=== PATIENT | male | born 1955 | race Caucasian/White ===

== ENCOUNTER 2019-01-06 09:48 | Inpatient (IN) | payer MEDICARE, OTHER ==
[2019-01-06] MEDS ORDERED: ALPRAZolam 0.25 MG TAB PO PRN (11:43)
[2019-01-06] MEDS ORDERED: NITROGLYCERIN SL TABS 0.4 MG TAB SUBLINGUAL PRN ×2 (11:43→18:50)
[2019-01-06] MEDS ORDERED: SODIUM CHLORIDE 0.9% 1,000 ML in EMPTY BAG 1 BAG IV ONE (11:43)
[2019-01-06] MEDS ORDERED: ASPIRIN 325 MG TAB PO STA (11:46)
[2019-01-06] MEDS ORDERED: LIDOCAINE 1% INJ 10MG/ML (20 ML MDV) ONE (16:48)
[2019-01-06] MEDS ORDERED: MIDAZOLAM 2 MG/2 ML VIAL IVP ONE (18:08)
[2019-01-06] MEDS ORDERED: BIVALIRUDIN BOLUS 250 MG/50 ML IV ONE (18:10)
[2019-01-06] MEDS ORDERED: IV FLUID CONTINUATION 1,000 ML IV ONE (18:11)
[2019-01-06] MEDS ORDERED: BIVALIRUDIN 250 MG in SODIUM CHLORIDE 0.9% 50 ML IV ONE (18:11)
[2019-01-06] MEDS ORDERED: NITROGLYCERIN 1000MCG/10ML SYRINGE INTRACORON ONE (18:29)
[2019-01-06] MEDS ORDERED: CLOPIDOGREL 75 MG TAB ONE (18:36)
[2019-01-06] MEDS ORDERED: CLOPIDOGREL 75 MG TAB PO ONE (18:38)
[2019-01-06] MEDS ORDERED: IOPAMIDOL-370 125ML BTL INJ ONE (18:43)
[2019-01-06] MEDS ORDERED: ATROPINE SULFATE 0.1 MG/ML 10ML SYRINGE IV PRN (18:50)
[2019-01-06] MEDS ORDERED: RX INFO: IV CONTRAST WAS GIVEN 1 EACH MISC MISCELLANE PRN (18:50)
[2019-01-06] MEDS ORDERED: ZOLPIDEM 5 MG TAB PO PRN (18:50)
[2019-01-06] MEDS ORDERED: BISACODYL 10 MG SUPP RECTAL PRN (18:50)
[2019-01-06] MEDS ORDERED: MAG HYDROX/AL HYDROX/SIMETH 30 ML CUP PO PRN (18:50)
[2019-01-06] MEDS ORDERED: SODIUM CHLORIDE 0.9% 1,000 ML IV SCH (19:00)
[2019-01-06] MEDS ORDERED: HYDROcodone/APAP 5-325MG 1 EACH TAB PO PRN (20:58)
--- NOTE | 2019-01-06 23:08 | PTCA ---
PERCUTANEOUSTRANS CORORONARY ANGIOGRAPHY DATE OF SERVICE: January 06, 2019 PERFORMING PHYSICIAN: Herb Tomlinson MD, endoscopy registered nurse. PROCEDURE PERFORMED: 1. Successful stenting of the distal and mid left circumflex using 2.75 x 18 mm Xience drug-eluting stent with an excellent angiographic results. 2. Successful stenting of the mid left circumflex using 3.25 x 28 mm Xience drug- eluting stent with an excellent angiographic results. INDICATIONS: This is a 63-year-old gentleman with hypertension, dyslipidemia, and history of stroke, who was experiencing shortness of breath with minimal exertion. He underwent myocardial perfusion imaging stress test and that showed inferolateral ischemia. A heart catheterization was advised. He underwent heart catheterization and that showed critical disease involving the left circumflex and critical disease involving the RCA as well. APPROACH: Left common femoral artery. COMPLICATION: None. LEVEL OF SEDATION: Moderate with sedation length of 33 minutes. PROCEDURE DESCRIPTION: diagnostic heart catheterization was performed at [facility]. Anticoagulation was initiated using Angiomax. Subsequently I took an XB guide and the left main was engaged. I crossed the lesion in the left circumflex using a run-through wire. After that, I attempted doing balloon angioplasty using 2.0 mm balloon but the balloon will not cross the lesion, so I did balloon angioplasty using 1.5 mm balloon. After that, I ballooned using 2.5 x 15 mm balloon. After that, I deployed distally 275 x 18 mm Xience drug-eluting stent and in the mid 325 x 28 mm Xience drug-eluting stent as well. The area of overlap between the 2 stents was dilated using the stent balloon. Following the final angiogram showed good angiographic results and the procedure was completed without any complication. POSTPROCEDURE MANAGEMENT: 1. Dual anti-platelet therapy. 2. Risk factors modifications. 3. PCI of the RCA down the line. MMODL / IJN: [id number] /
--- NOTE | 2019-01-06 23:08 | LTR ---
DATE OF SERVICE: January 06, [address] Varma: MrSoheila Morel underwent successful balloon angioplasty and stenting of the left circumflex. I want to thank you for allowing us to participate in his care and please do not hesitate to call if you have any question or concerns. MMLYUDMILA / IJAlba: [id number] /
[2019-01-06] MEDS: CARVEDILOL 3.125 MG TAB PO SCH (23:27)
[2019-01-06 23:41] VITALS: RESP 18
[2019-01-07 03:42] VITALS: TEMP 97.3
[2019-01-07 06:50] LABS: Basophils # (A) 0.1 k/uL (0-0.2); Basophils % (A) 0 %; Eosinophils # (A) 0.1 k/uL (0-0.7); Eosinophils % (A) 1 %; HCT 39.5 % (39.0-53.0); HGB 12.5 gm/dL (13.0-17.5); Lymphocytes # (A) 1.1 k/uL (1.0-4.8); Lymphocytes % (A) 9 %; MCH 27.7 pg (25.0-35.0); MCHC 31.6 g/dL (31.0-37.0); MCV 87.5 fL (80.0-100.0); Mean Platelet Volume 7.3; Monocytes # (A) 0.7 k/uL (0-1.0); Monocytes % (A) 6 %; Neutrophils # (A) 10.5 k/uL (1.3-7.7); Neutrophils % (A) 83 %; Platelet Count 197 k/uL (150-450); RBC 4.51 m/uL (4.30-5.90); RDW 15.8 % (11.5-15.5); WBC 12.6 k/uL (3.8-10.6)
[2019-01-07 06:59] LABS: Anion Gap 8 mmol/L; Blood Urea Nitrogen 18 mg/dL (9-20); Carbon Dioxide 26 mmol/L (22-30); Chloride 105 mmol/L (98-107); Glucose 111 mg/dL (74-99); Potassium 4.1 mmol/L (3.5-5.1); Sodium 139 mmol/L (137-145)
[2019-01-07] MEDS: CARVEDILOL 3.125 MG TAB PO SCH (08:29)
[2019-01-07] MEDS ORDERED: CLOPIDOGREL 75 MG TAB PO SCH (09:00)
[2019-01-07] MEDS ORDERED: LISINOPRIL 20 MG TAB PO SCH (09:00)
[2019-01-07] MEDS ORDERED: POTASSIUM CHLORIDE ER 20 MEQ TAB.ER PO SCH (09:00)
[2019-01-07] MEDS ORDERED: ATORVASTATIN 40 MG TAB PO SCH (09:00)
[2019-01-07] MEDS ORDERED: levETIRAcetam 500 MG TAB PO SCH (09:00)
[2019-01-07] MEDS ORDERED: ASPIRIN 325 MG TAB PO SCH (09:00)
[2019-01-07 09:28] VITALS: BP 158/69; PULSE 60
[2019-01-07 10:29] VITALS: BMI 30.3
[2019-01-07] MEDS ORDERED: CHOLECALCIFEROL 1,000 UNIT TAB PO SCH (12:00)
--- NOTE | 2019-01-08 07:57 | DS ---
DISCHARGE SUMMARY ADMISSION DATE: January 06, 2019 DISCHARGE DATE: January 07, 2019 BRIEF HISTORY: This is a 63-year-old gentleman who was experiencing shortness of breath with exertion and underwent a heart catheterization at [facility], which revealed critical disease involving the left circumflex and severe disease involving the right coronary artery. He was transferred to the [facility] where he underwent successful balloon angioplasty and stenting of the left circumflex with good angiographic results and without any complication. The patient was discharged home on dual anti-platelet therapy as well as a statin and he is going to follow up in the office with me in a week. MMODL / IJN: [id number] /
== END 2019-01-07 12:54 | DRG 247 ==
LOC: 3SCARD 15:51
PROVIDERS: ADMIT Internal Medicine Interventional Cardiology; ATTEND Internal Medicine Interventional Cardiology
PROC: 027035Z Dilation of Coronary Artery, One Artery with Two Drug-eluting Intraluminal Devices, Percutaneous Approach (ICD-10-PCS; principal; 2019-01-06 17:22)
DX: I25.10 Atherosclerotic heart disease of native coronary artery without angina pectoris (principal); I69.351 Hemiplegia and hemiparesis following cerebral infarction affecting right dominant side; I47.1 Supraventricular tachycardia; F17.210 Nicotine dependence, cigarettes, uncomplicated; I69.320 Aphasia following cerebral infarction; I10 Essential (primary) hypertension; I45.10 Unspecified right bundle-branch block; E78.5 Hyperlipidemia, unspecified; Z79.82 Long term (current) use of aspirin; Z79.899 Other long term (current) drug therapy; I08.0 Rheumatic disorders of both mitral and aortic valves
CPT/HCPCS: 80048; 85025; C1874

== ENCOUNTER 2019-02-19 07:40 | Day surgery (SDC) | payer MEDICARE, OTHER ==
[2019-02-18 09:50] VITALS: BMI 29.0
[~2019-02-19 07:40] MED LIST: ALPRAZolam 0.25 MG TAB PO PRN; ALPRAZolam 0.5 MG TAB PO PRN; ASPIRIN 325 MG TAB PO STA; NITROGLYCERIN SL TABS 0.4 MG TAB SUBLINGUAL PRN; SODIUM CHLORIDE 0.9% 1,000 ML in EMPTY BAG 1 BAG IV ONE
[2019-02-19 08:19] LABS: Basophils # (A) 0.1 k/uL (0-0.2); Basophils % (A) 1 %; Eosinophils # (A) 0.4 k/uL (0-0.7); Eosinophils % (A) 4 %; HCT 38.2 % (39.0-53.0); HGB 12.6 gm/dL (13.0-17.5); Lymphocytes % (A) 21 %; MCH 29.2 pg (25.0-35.0); MCHC 32.9 g/dL (31.0-37.0); MCV 88.6 fL (80.0-100.0); Mean Platelet Volume 7.3; Monocytes # (A) 0.6 k/uL (0-1.0); Monocytes % (A) 6 %; Neutrophils # (A) 6.3 k/uL (1.3-7.7); Neutrophils % (A) 66 %; Platelet Count 252 k/uL (150-450); RBC 4.31 m/uL (4.30-5.90); RDW 15.7 % (11.5-15.5); WBC 9.6 k/uL (3.8-10.6)
[2019-02-19 08:27] LABS: Blood Urea Nitrogen 19 mg/dL (9-20); Carbon Dioxide 28 mmol/L (22-30)
[2019-02-19 08:47] LABS: Anion Gap 10 mmol/L; Calcium 9.6 mg/dL (8.4-10.2); Chloride 106 mmol/L (98-107); Glucose 96 mg/dL (74-99); Potassium 4.3 mmol/L (3.5-5.1); Sodium 142 mmol/L (137-145)
[2019-02-19] MEDS ORDERED: LIDOCAINE 1% INJ 10MG/ML (20 ML MDV) ONE (08:56)
[2019-02-19] MEDS ORDERED: MIDAZOLAM (PF) 2 MG/2 ML VIAL IV ONE (08:59)
[2019-02-19] MEDS ORDERED: LIDOCAINE 1% INJ 10MG/ML (20 ML MDV) SQ ONE (08:59)
[2019-02-19] MEDS ORDERED: CLOPIDOGREL 75 MG TAB ONE (09:02)
[2019-02-19] MEDS ORDERED: CLOPIDOGREL 75 MG TAB PO ONE (09:03)
[2019-02-19] MEDS ORDERED: BIVALIRUDIN 250 MG in SODIUM CHLORIDE 0.9% 36 ML IV ONE (09:04)
[2019-02-19] MEDS ORDERED: BIVALIRUDIN BOLUS 250 MG/50 ML IV ONE (09:04)
[2019-02-19] MEDS ORDERED: hydrALAZINE HCL 20 MG/ML 1 ML VIAL ONE (09:13)
[2019-02-19] MEDS ORDERED: hydrALAZINE HCL 20 MG/ML 1 ML VIAL IV ONE (09:14)
[2019-02-19] MEDS ORDERED: IOPAMIDOL-370 125ML BTL INJ ONE (09:25)
[2019-02-19] MEDS ORDERED: ACETAMINOPHEN TAB 325 MG TAB PO PRN (09:40)
[2019-02-19] MEDS ORDERED: BISACODYL 10 MG SUPP RECTAL PRN (09:40)
[2019-02-19] MEDS ORDERED: ATROPINE SULFATE 0.1 MG/ML 10ML SYRINGE IV PRN (09:41)
[2019-02-19] MEDS ORDERED: MAG HYDROX/AL HYDROX/SIMETH 30 ML CUP PO PRN (09:41)
[2019-02-19] MEDS ORDERED: ZOLPIDEM 5 MG TAB PO PRN (09:41)
[2019-02-19] MEDS ORDERED: RX INFO: IV CONTRAST WAS GIVEN 1 EACH MISC MISCELLANE PRN (09:41)
[2019-02-19] MEDS ORDERED: NITROGLYCERIN SL TABS 0.4 MG TAB SUBLINGUAL PRN (09:41)
[2019-02-19] MEDS ORDERED: SODIUM CHLORIDE 0.9% 1,000 ML IV SCH (09:45)
--- NOTE | 2019-02-19 10:09 | LTR ---
DATE OF SERVICE: February 19, 2019 RE: Surinder Morel Dear Dr. Varma: Mr. Surinder Morel underwent successful stenting of the right coronary artery with good angiographic results and without any complication. I want to thank you for allowing us to participate in his care and please do not hesitate to call if you have any question or concern. Sincerely, Herb Tomlinson MD MMMIGUELL / CHANCEN: [id number] /
--- NOTE | 2019-02-19 10:15 | CC ---
CARDIAC CATHETERIZATION REPORT CARDIAC CATHETERIZATION AND PERCUTANEOUS CORONARY INTERVENTION: DATE OF SERVICE: February 19, 2019 PERFORMING PHYSICIAN: Herb Tomlinson M.D., swatch maker. PROCEDURE PERFORMED: 1. Selective right and left coronary angiogram. 2. Left heart catheterization. 3. Successful stenting of the mid right coronary artery using 3.25 x 38 mm Xience drug- eluting stent with good angiographic results. 4. Successful stenting of the proximal right coronary artery using 3.25 x 18 mm Xience drug-eluting stent with excellent angiographic results. INDICATION: This is a pleasant 64-year-old gentleman with history of coronary artery disease and prior coronary artery stenting of the left circumflex, who was brought today to undergo a PCI of the right coronary artery. He is known to have severe disease involving the right coronary artery. APPROACH: Left common femoral artery. COMPLICATION: None. LEVEL OF SEDATION: Moderate with sedation length of 28 minutes. PROCEDURE DESCRIPTION: After obtaining an informed consent, the patient was brought to the cardiac medical lab technician. The left common femoral artery was cannulated using micropuncture technique, the micropuncture wire passed easily then I placed a 6-Georgian sheath in the left common femoral artery. After that, I did intervene on the right coronary artery. Please see a separate paragraph for that. Subsequently I did selective left coronary angiogram to check the stent in the left circumflex. During the procedure, the JR4 guide went into the LV then I pulled back across the aortic valve. The procedure was completed without any complication. SELECTIVE CORONARY ANGIOGRAM: 1. The right coronary artery has a long tubular lesion extends from the proximal to the mid to distal portion. The tubular lesion up to about 80%. The RCA distally appeared to be normal and bifurcates into PDA and PLV branches, both appear to have mild disease only. 2. The left main is angiographically normal. It bifurcates into left circumflex and left anterior descending artery. 3. The left circumflex is a large caliber vessel and it is a nondominant vessel. The proximal circumflex is . The mid circumflex is stented and the stent is patent and the circumflex distally appeared to have mild disease only. The circumflex gives rise into 2 obtuse marginal branches. They appeared to have mild disease only. 4. The LAD: The proximal LAD appeared to be angiographically normal. The mid LAD has a complex lesion involving the first diagonal branch and the lesion appeared to be in the range of 50% to 60%. The LAD distally appeared to be normal. HEMODYNAMICS: The left ventricular end-diastolic pressure was about 12 mmHg without significant gradient across the aortic valve. PCI OF THE RIGHT CORONARY ARTERY: Anticoagulation was initiated using Angiomax. Subsequently I did engage the right coronary artery using JR4 guide. A run-through wire was used to wire the right coronary artery and the wire was positioned in the PDA branch of RCA. Subsequently I did balloon angioplasty using 3.0 x 30 mm balloon before I deployed in the mid RCA 3.25 x 38 mm Xience drug-eluting stent where the stent was positioned under fluoroscopy guidance and deployed under 18 atmospheres for 20 seconds. Proximally, I deployed 3.25 x 18 mm another Xience drug-eluting stent where the stent again was positioned under fluoroscopy guidance and deployed under 18 atmospheres for 20 seconds. Final angiogram showed good results and the procedure was completed without any complication. POSTPROCEDURE MANAGEMENT: 1. Dual antiplatelet therapy. 2. Risk factors modifications. 3. Follow up with the patient. SUSANA / CHANCEN: [id number] /
[2019-02-19] MEDS: CARVEDILOL 3.125 MG TAB PO SCH (17:28)
[2019-02-19] MEDS ORDERED: MAGNESIUM OXIDE 400 MG TAB PO SCH (21:00)
[2019-02-19 23:59] VITALS: RESP 18
[2019-02-20] MEDS: CARVEDILOL 3.125 MG TAB PO SCH (06:08)
[2019-02-20 06:50] LABS: Basophils # (A) 0.1 k/uL (0-0.2); Basophils % (A) 1 %; Eosinophils # (A) 0.2 k/uL (0-0.7); Eosinophils % (A) 2 %; HCT 36.7 % (39.0-53.0); HGB 11.9 gm/dL (13.0-17.5); Lymphocytes # (A) 1.8 k/uL (1.0-4.8); Lymphocytes % (A) 18 %; MCH 28.6 pg (25.0-35.0); MCHC 32.4 g/dL (31.0-37.0); MCV 88.2 fL (80.0-100.0); Mean Platelet Volume 7.3; Monocytes # (A) 0.7 k/uL (0-1.0); Monocytes % (A) 7 %; Neutrophils # (A) 7.2 k/uL (1.3-7.7); Neutrophils % (A) 71 %; Platelet Count 218 k/uL (150-450); RBC 4.16 m/uL (4.30-5.90); RDW 15.9 % (11.5-15.5); WBC 10.2 k/uL (3.8-10.6)
[2019-02-20 06:58] LABS: Anion Gap 9 mmol/L; Blood Urea Nitrogen 17 mg/dL (9-20); Calcium 9.4 mg/dL (8.4-10.2); Carbon Dioxide 24 mmol/L (22-30); Chloride 106 mmol/L (98-107); Glucose 93 mg/dL (74-99); Potassium 4.1 mmol/L (3.5-5.1); Sodium 139 mmol/L (137-145)
[2019-02-20 07:53] VITALS: BP 175/88; PULSE 59; TEMP 98.6
[2019-02-20] MEDS ORDERED: CLOPIDOGREL 75 MG TAB PO SCH (09:00)
[2019-02-20] MEDS ORDERED: POTASSIUM CHLORIDE ER 20 MEQ TAB.ER PO SCH (09:00)
[2019-02-20] MEDS ORDERED: ASPIRIN 81 MG PO SCH (09:00)
[2019-02-20] MEDS ORDERED: CHOLECALCIFEROL 1,000 UNIT TAB PO SCH (09:00)
[2019-02-20] MEDS ORDERED: ATORVASTATIN 80 MG TAB PO SCH (09:00)
[2019-02-20] MEDS ORDERED: ASCORBIC ACID 500 MG TAB PO SCH (09:00)
[2019-02-20] MEDS ORDERED: LISINOPRIL 20 MG TAB PO SCH (09:00)
[2019-02-20] MEDS ORDERED: levETIRAcetam 500 MG TAB PO SCH (09:00)
--- NOTE | 2019-02-20 10:47 | P.DS ---
Providers Attending physician: Herb Tomlinson Consults: 02/19/19 09:41 Consult Physician Routine Consulting Provider: [facility] Consult Reason/Comments: Post Interventional patient Do you want consulting provider notified?: Already Contacted Primary care physician: Devora Varma [facility] Course: This is a pleasant 64-year-old gentleman with history of coronary artery disease and prior stenting of the left circumflex was admitted to the hospital yesterday and underwent successful stenting of the right coronary artery with a good angiographic results and without any complication. On follow-up with him today, he is asymptomatic. The left groin is soft and nontender and without any bruises. From a cardiac vascular standpoint of view, the patient can be discharged home. Plan - Discharge Summary Discharge Rx Participant: No New Discharge Prescriptions: Continue Potassium Chloride ER [K-Dur 20] 20 meq PO DAILY levETIRAcetam [Keppra] 1,000 mg PO DAILY Lisinopril 40 mg PO DAILY Clopidogrel [Plavix] 75 mg PO DAILY Cholecalciferol [Vitamin D3 (25 Mcg = 1000 Iu)] 2,000 unit PO DAILY Bisacodyl 10 mg RECTAL DIRECTED PRN PRN Reason: Constipation Carvedilol [Coreg] 3.125 mg PO BID Acetaminophen Tab [Tylenol] 650 mg PO Q4H PRN PRN Reason: Pain Ascorbic Acid [Vitamin C] 500 mg PO DAILY Aspirin [Children's Aspirin] 81 mg PO DAILY Atorvastatin Calcium [Lipitor] 80 mg PO DAILY #90 tablet Magnesium Oxide [Mag-Ox] 400 mg PO 2100 Discharge Medication List Acetaminophen Tab [Tylenol] 650 mg PO Q4H PRN 01/06/19 [History] Ascorbic Acid [Vitamin C] 500 mg PO DAILY 01/06/19 [History] Aspirin [Children's Aspirin] 81 mg PO DAILY 01/06/19 [History] Bisacodyl 10 mg RECTAL DIRECTED PRN 01/06/19 [History] Carvedilol [Coreg] 3.125 mg PO BID 01/06/19 [History] Cholecalciferol [Vitamin D3 (25 Mcg = 1000 Iu)] 2,000 unit PO DAILY 01/06/19 [History] Clopidogrel [Plavix] 75 mg PO DAILY 01/06/19 [History] Lisinopril 40 mg PO DAILY 01/06/19 [History] Potassium Chloride ER [K-Dur 20] 20 meq PO DAILY 01/06/19 [History] levETIRAcetam [Keppra] 1,000 mg PO DAILY 01/06/19 [History] Atorvastatin Calcium [Lipitor] 80 mg PO DAILY #90 tablet 01/07/19 [Rx] Magnesium Oxide [Mag-Ox] 400 mg PO 2100 02/18/19 [History] Follow up Appointment(s)/Referral(s): Herb Tomlinson MD [STAFF PHYSICIAN] - 02/27/19 4:30 pm (Saturday) Patient Instructions/Handouts: *[facility] - After Heart Catheterization - Hydraulic Specialist Instructions, Left Heart Catheterization (DC)
== END 2019-02-20 14:52 ==
LOC: CATHCVL 07:40 → 3SCARD 09:26 → CATHCVL 02-20 14:52
PROVIDERS: ATTEND Internal Medicine Interventional Cardiology
DX: I25.110 Atherosclerotic heart disease of native coronary artery with unstable angina pectoris (principal); I10 Essential (primary) hypertension; E78.00 Pure hypercholesterolemia, unspecified; E78.5 Hyperlipidemia, unspecified; I47.2 Ventricular tachycardia; I45.10 Unspecified right bundle-branch block; I69.359 Hemiplegia and hemiparesis following cerebral infarction affecting unspecified side; Z95.5 Presence of coronary angioplasty implant and graft; Z79.02 Long term (current) use of antithrombotics/antiplatelets; Z79.899 Other long term (current) drug therapy; Z72.0 Tobacco use
CPT/HCPCS: 80048 ×2; 85025 ×2; C9600; C1887; C1725; C1769 ×3; C1894; C1874; J0360; J2001; J0583; Q9967; J2250

== ENCOUNTER 2019-04-26 13:49 | Inpatient (IN) | payer MEDICARE, OTHER ==
--- NOTE | 2019-04-26 14:05 | ED ---
General Adult HPI - General Chief complaint: GI Bleed Stated complaint: Rectal Bleed Time Seen by Provider: 04/26/19 13:50 Source: patient, EMS, RN notes reviewed Mode of arrival: EMS Limitations: no limitations - History of Present Illness Initial comments: This a 64-year-old male with a past medical history of stroke with right-sided paralysis. Patient states it happened about 20 years ago. Patient currently takes Plavix for this. Patient has been having rectal bleeding on and off for over a year he states he thinks it's from his hemorrhoids. Over the last few days is gotten quite heavy to the point where he is filling up a few towels and with every bowel movement is having a fair amount of bright red blood. Patient denies any rectal pain patient denies any abdominal pain. Patient denies any nausea vomiting. Patient denies any shortness of breath or difficulty breathing. Patient denies any chest pain or palpitations. Patient denies being lightheaded or having any dizzy spells. Patient denies any peripheral - Related Data Home Medications Medication Instructions Recorded Confirmed Acetaminophen Tab [Tylenol] 650 mg PO Q4H PRN 01/06/19 04/26/19 Ascorbic Acid [Vitamin C] 500 mg PO HS@2100 01/06/19 04/26/19 Aspirin [Children's Aspirin] 81 mg PO HS@2100 01/06/19 04/26/19 Bisacodyl 10 mg RECTAL DAILY PRN 01/06/19 04/26/19 Carvedilol [Coreg] 3.125 mg PO BID 01/06/19 04/26/19 Cholecalciferol [Vitamin D3 (25 2,000 unit PO HS@2100 01/06/19 04/26/19 Mcg = 1000 Iu)] Clopidogrel [Plavix] 75 mg PO HS 01/06/19 04/26/19 Lisinopril 40 mg PO DAILY 01/06/19 04/26/19 Potassium Chloride ER [K-Dur 20] 20 meq PO DAILY 01/06/19 04/26/19 levETIRAcetam [Keppra] 500 mg PO BID@0700,1800 01/06/19 04/26/19 Magnesium Oxide [Mag-Ox] 400 mg PO HS 02/18/19 04/26/19 Atorvastatin [Lipitor] 40 mg PO DAILY 04/26/19 04/26/19 Geritussin Dm 10 ml PO Q6H PRN 04/26/19 04/26/19 Major-Prep Henrroid Oint 1 applic TOPICAL DAILY PRN 04/26/19 04/26/19 Allergies Allergy/AdvReac Type Severity Reaction Status Date / Time No Known Allergies Allergy Verified 04/26/19 14:00 Review of Systems ROS Statement: Those systems with pertinent positive or pertinent negative responses have been documented in the HPI. ROS Other: All systems not noted in ROS Statement are negative. Past Medical History Past Medical History: Coronary Artery Disease (CAD), CVA/TIA, Hyperlipidemia, Hypertension, Seizure Disorder Additional Past Medical History / Comment(s): Right SIDED WEAKNESS AFTER STROKE- NOT MUCH USE OF Right HAND , USES A WHEEL CHAIR,PIVOTS USES A QUAD CANE. History of Any Multi-Drug Resistant Organisms: None Reported Past Surgical History: Heart Catheterization With Stent Additional Past Surgical History / Comment(s): right hand surgery for pins, one testicle removed, 2 stents RCA 02/19/2019 Past Anesthesia/Blood Transfusion Reactions: No Reported Reaction Date of Last Stent Placement:: 02/19/2018 Past Psychological History: No Psychological Hx Reported Smoking Status: Former smoker Past Alcohol Use History: None Reported Past Drug Use History: None Reported - Past Family History Mother Family Medical History: Cancer General Exam - General Exam Comments Initial Comments: GENERAL: Patient is well-developed and well-nourished. Patient is nontoxic and well-hydrated and is in no acute distress. ENT: Neck is soft and supple. No significant lymphadenopathy is noted. Oropharynx is clear. Moist mucous membranes. Neck has full range of motion without eliciting any pain. EYES: The sclera were anicteric and conjunctiva were pink and moist. Extraocular mov ements were intact and pupils were equal round and reactive to light. Eyelids were unremarkable. PULMONARY: Unlabored respirations. Good breath sounds bilaterally. No audible rales rhonchi or wheezing was noted. CARDIOVASCULAR: There is a regular rate and rhythm without any murmurs gallops or rubs. ABDOMEN: Soft and nontender with normal bowel sounds. RECTAL: On rectal exam patient has external hemorrhoids without any obvious site of bleeding SKIN: Skin is clear with no lesions or rashes and otherwise unremarkable. NEUROLOGIC: Patient is alert and oriented x3. Cranial nerves II through XII are grossly intact. Patient has right-sided paralysis of the arm and leg. MUSCULOSKELETAL: Normal extremities with adequate strength and full range of motion. No lower extremity swelling or edema. No calf tenderness. LYMPHATICS: No significant lymphadenopathy is noted PSYCHIATRIC: Normal psychiatric evaluation. Limitations: no limitations Course Vital Signs 04/26/19 13:52 Temperature 98.4 F Pulse Rate 59 L Respiratory 18 Rate Blood Pressure 131/59 O2 Sat by Pulse 97 Oximetry Medical Decision Making - Medical Decision Making Patient's hemoglobin came back 8.0 which is a substantial drop from his last visit. I spoke with Dr. Rossi he agreed to admit the patient admitted the patient I consult the GI any repeated CBCs. - Lab Data Result diagrams: 04/26/19 14:10 04/26/19 14:10 Lab Results 04/26/19 04/26/19 04/26/19 Range/Units 14:10 14:10 14:10 WBC 7.2 (3.8-10.6) k/uL RBC 2.98 L (4.30-5.90) m/uL Hgb 8.0 L D (13.0-17.5) gm/dL Hct 24.7 L (39.0-53.0) % MCV 82.8 D (80.0-100.0) fL MCH 27.0 (25.0-35.0) pg MCHC 32.6 (31.0-37.0) g/dL RDW 15.0 (11.5-15.5) % Plt Count 335 (150-450) k/uL Neutrophils % 59 % Lymphocytes % 26 % Monocytes % 9 % Eosinophils % 2 % Basophils % 1 % Neutrophils # 4.2 (1.3-7.7) k/uL Lymphocytes # 1.9 (1.0-4.8) k/uL Monocytes # 0.6 (0-1.0) k/uL Eosinophils # 0.2 (0-0.7) k/uL Basophils # 0.1 (0-0.2) k/uL Hypochromasia Marked Poikilocytosis Moderate PT 10.3 (9.0-12.0) sec INR 1.0 (<1.2) APTT 23.0 (22.0-30.0) sec Sodium 137 (137-145) mmol/L Potassium 4.8 (3.5-5.1) mmol/L Chloride 104 (98-107) mmol/L Carbon Dioxide 22 (22-30) mmol/L Anion Gap 11 mmol/L BUN 23 H (9-20) mg/dL Creatinine 1.15 (0.66-1.25) mg/dL Est GFR (CKD-EPI)AfAm 77 (>60 ml/min/1.73 sqM) Est GFR (CKD-EPI)NonAf 67 (>60 ml/min/1.73 sqM) Glucose 108 H (74-99) mg/dL Calcium 8.8 (8.4-10.2) mg/dL Total Bilirubin 0.3 (0.2-1.3) mg/dL AST 21 (17-59) U/L ALT 16 L (21-72) U/L Alkaline Phosphatase 65 (38-126) U/L Total Protein 7.0 (6.3-8.2) g/dL Albumin 4.0 (3.5-5.0) g/dL Disposition Clinical Impression: Anemia, GI bleed Disposition: ADMITTED IP TO THIS [facility] Referrals: Devora Varma MD [Primary Care Provider] - 1-2 days Time of Disposition: 15:19
[2019-04-26 14:35] LABS: Prothrombin Time 10.3 sec (9.0-12.0)
[2019-04-26 14:43] LABS: Basophils # (A) 0.1 k/uL (0-0.2); Basophils % (A) 1 %; Calcium 8.8 mg/dL (8.4-10.2); Eosinophils # (A) 0.2 k/uL (0-0.7); Eosinophils % (A) 2 %; HCT 24.7 % (39.0-53.0); Hypochromasia Marked; Lymphocytes # (A) 1.9 k/uL (1.0-4.8); Lymphocytes % (A) 26 %; MCHC 32.6 g/dL (31.0-37.0); Mean Platelet Volume 7.5; Monocytes # (A) 0.6 k/uL (0-1.0); Monocytes % (A) 9 %; Neutrophils # (A) 4.2 k/uL (1.3-7.7); Neutrophils % (A) 59 %; Platelet Count 335 k/uL (150-450); Poikilocytosis Moderate; Potassium 4.8 mmol/L (3.5-5.1); RBC 2.98 m/uL (4.30-5.90); Total Bilirubin 0.3 mg/dL (0.2-1.3); WBC 7.2 k/uL (3.8-10.6)
[2019-04-26 14:45] LABS: MCV 82.8 fL (80.0-100.0)
[2019-04-26] MEDS ORDERED: SODIUM CHLORIDE 0.9% 1,000 ML IV ONE (15:19)
[2019-04-26] MEDS ORDERED: BISACODYL 10 MG SUPP RECTAL PRN (16:26)
[2019-04-26] MEDS ORDERED: ACETAMINOPHEN TAB 325 MG TAB PO PRN (16:26)
[2019-04-26] MEDS: CARVEDILOL 3.125 MG TAB PO SCH (17:59)
[2019-04-26] MEDS: levETIRAcetam 500 MG TAB PO SCH (18:34)
[2019-04-26] MEDS: MAGNESIUM OXIDE 400 MG TAB PO SCH (21:02)
[2019-04-26] MEDS: CHOLECALCIFEROL 1,000 UNIT TAB PO SCH (21:04)
[2019-04-26 22:37] LABS: Basophils # (A) 0.1 k/uL (0-0.2); Basophils % (A) 1 %; Eosinophils # (A) 0.3 k/uL (0-0.7); Eosinophils % (A) 4 %; HGB 7.4 gm/dL (13.0-17.5); Hypochromasia Marked; Lymphocytes # (A) 2.2 k/uL (1.0-4.8); Lymphocytes % (A) 32 %; MCH 26.4 pg (25.0-35.0); MCHC 32.2 g/dL (31.0-37.0); MCV 82.1 fL (80.0-100.0); Mean Platelet Volume 7.3; Monocytes # (A) 0.5 k/uL (0-1.0); Monocytes % (A) 7 %; Neutrophils # (A) 3.6 k/uL (1.3-7.7); Neutrophils % (A) 52 %; Platelet Count 292 k/uL (150-450); Poikilocytosis Moderate; RDW 15.3 % (11.5-15.5)
[2019-04-27 04:37] LABS: HCT 22.7 % (39.0-53.0); Hypochromasia Moderate; MCHC 30.9 g/dL (31.0-37.0); MCV 84.1 fL (80.0-100.0); Mean Platelet Volume 6.9; Platelet Count 299 k/uL (150-450); Poikilocytosis Slight; RDW 15.6 % (11.5-15.5); WBC 7.1 k/uL (3.8-10.6)
[2019-04-27 04:59] LABS: African American GFR (CKD) >90 (>60 ml/min/1.73 sqM); Anion Gap 8 mmol/L; Blood Urea Nitrogen 20 mg/dL (9-20); Calcium 8.6 mg/dL (8.4-10.2); Carbon Dioxide 22 mmol/L (22-30); Chloride 107 mmol/L (98-107); Glucose 89 mg/dL (74-99); Potassium 4.6 mmol/L (3.5-5.1); Sodium 137 mmol/L (137-145)
[2019-04-27] MEDS: levETIRAcetam 500 MG TAB PO SCH ×2 (06:17→17:09)
[2019-04-27] MEDS: CARVEDILOL 3.125 MG TAB PO SCH ×2 (06:17→17:09)
[2019-04-27] MEDS: SODIUM CHLORIDE 0.9% 1,000 ML IV SCH ×2 (12:00→20:15)
[2019-04-27] MEDS: ATORVASTATIN 40 MG TAB PO SCH (12:00)
--- NOTE | 2019-04-27 12:34 | P.HPIM ---
History of Present Illness H&P Date: 04/26/19 59-year-old male with the known history of several vascular accident in the analysis is 4/5 in strength in right lower upper extremity and lower extremity came in with the complaints of bright red blood per rectum patient is on aspirin and Plavix for several vascular accident doesn't appear to have cardiac catheterization and stents in month of February this year Patient denied any fever chills nausea vomiting patient had the such. Sawyer lamas has been going on for about a week and was lightheaded and dizzy because of that and patient is found to have hemoglobin of around 7 patient is being admitted for acute GI bleed. Review of Systems REVIEW OF SYSTEMS: CONSTITUTIONAL: No fever, no malaise, no fatigue. HEENT: No recent visual problems or hearing problems. Denied any sore throat. CARDIOVASCULAR: No chest pain, orthopnea, PND, no palpitations, no syncope. PULMONARY: No shortness of breath, no cough, no hemoptysis. GASTROINTESTINAL: no nausea, no vomiting, no abdominal pain. NEUROLOGICAL: No headaches, no weakness, no numbness. HEMATOLOGICAL: Denies any bleeding or petechiae. GENITOURINARY: Denies any burning micturition, frequency, or urgency. MUSCULOSKELETAL/RHEUMATOLOGICAL: Denies any joint pain, swelling, or any muscle pain. ENDOCRINE: Denies any polyuria or polydipsia. The rest of the 14-point review of systems is negative. Past Medical History Past Medical History: Coronary Artery Disease (CAD), CVA/TIA, Hyperlipidemia, Hypertension, Seizure Disorder Additional Past Medical History / Comment(s): Right SIDED WEAKNESS AFTER STROKE- NOT MUCH USE OF Right HAND , USES A WHEEL CHAIR,PIVOTS USES A QUAD CANE. History of Any Multi-Drug Resistant Organisms: None Reported Past Surgical History: Heart Catheterization With Stent Additional Past Surgical History / Comment(s): right hand surgery for pins, one testicle removed, 2 stents RCA 02/19/2019 Past Anesthesia/Blood Transfusion Reactions: No Reported Reaction Date of Last Stent Placement:: 02/19/2018 Past Psychological History: No Psychological Hx Reported Smoking Status: Former smoker Past Alcohol Use History: None Reported Additional Past Alcohol Use History / Comment(s): NO HISTORY AVAILABLE REGARDING HOW LONG HE SMOKED OR WHEN HE QUIT Past Drug Use History: None Reported - Past Family History Mother Family Medical History: Cancer Medications and Allergies Home Medications Medication Instructions Recorded Confirmed Type Acetaminophen Tab [Tylenol] 650 mg PO Q4H PRN 01/06/19 04/26/19 History Ascorbic Acid [Vitamin C] 500 mg PO HS@2100 01/06/19 04/26/19 History Aspirin [Children's Aspirin] 81 mg PO HS@2100 01/06/19 04/26/19 History Bisacodyl 10 mg RECTAL DAILY PRN 01/06/19 04/26/19 History Carvedilol [Coreg] 3.125 mg PO BID 01/06/19 04/26/19 History Cholecalciferol [Vitamin D3 (25 2,000 unit PO HS@2100 01/06/19 04/26/19 History Mcg = 1000 Iu)] Clopidogrel [Plavix] 75 mg PO HS 01/06/19 04/26/19 History Lisinopril 40 mg PO DAILY 01/06/19 04/26/19 History Potassium Chloride ER [K-Dur 20] 20 meq PO DAILY 01/06/19 04/26/19 History levETIRAcetam [Keppra] 500 mg PO BID@0700,1800 01/06/19 04/26/19 History Magnesium Oxide [Mag-Ox] 400 mg PO HS 02/18/19 04/26/19 History Atorvastatin [Lipitor] 40 mg PO DAILY 04/26/19 04/26/19 History Geritussin Dm 10 ml PO Q6H PRN 04/26/19 04/26/19 History Major-Prep Henrroid Oint 1 applic TOPICAL DAILY PRN 04/26/19 04/26/19 History Allergies Allergy/AdvReac Type Severity Reaction Status Date / Time No Known Allergies Allergy Verified 04/26/19 14:00 Physical Exam Vitals: Vital Signs Temp Pulse Pulse Resp BP BP Pulse Ox 04/27/19 12:18 99.2 F 62 18 146/68 04/27/19 12:00 99.2 F 63 18 149/66 95 04/27/19 08:00 98.9 F 65 18 115/59 95 04/27/19 04:00 98.0 F 61 16 101/51 95 04/27/19 03:46 70 16 04/26/19 23:32 98.2 F 70 16 116/55 96 04/26/19 21:25 98.4 F 59 L 16 111/59 100 04/26/19 20:20 72 18 155/55 98 04/26/19 18:37 98.1 F 70 16 169/74 98 04/26/19 17:48 75 18 130/73 97 04/26/19 16:27 64 18 174/85 100 04/26/19 13:52 98.4 F 59 L 18 131/59 97 Intake and Output 04/26/19 04/27/19 04/27/19 22:59 06:59 14:59 Intake Total 30 Output Total 200 800 350 Balance -200 -800 -320 Intake: IV 30 Invasive Line 1 30 Blood Product 0 Rc As-1 Unit 0 [id number] Output: Urine 200 800 350 Other: Voiding Method Urinal Urinal Urinal Weight 84.5 kg PHYSICAL EXAMINATION: GENERAL: The patient is alert and oriented x3, not in any acute distress. Well developed, well nourished. HEENT: Pupils are round and equally reacting to light. EOMI. No scleral icterus. Does have conjunctival pallor. Normocephalic, atraumatic. No pharyngeal erythema. No thyromegaly. CARDIOVASCULAR: S1 and S2 present. No murmurs, rubs, or gallops. PULMONARY: Chest is clear to auscultation, no wheezing or crackles. ABDOMEN: Soft, nontender, nondistended, normoactive bowel sounds. No palpable organomegaly. MUSCULOSKELETAL: No joint swelling or deformity. EXTREMITIES: No cyanosis, clubbing, or pedal edema. NEUROLOGICAL: Gross neurological examination did not reveal any focal deficits. SKIN: No rashes. Results CBC & Chem 7: 04/27/19 03:59 04/27/19 03:59 Labs: Abnormal Lab Results - Last 24 Hours (Table) 04/26/19 04/26/19 04/26/19 Range/Units 14:10 14:10 16:31 RBC 2.98 L (4.30-5.90) m/uL Hgb 8.0 L D (13.0-17.5) gm/dL Hct 24.7 L (39.0-53.0) % MCHC (31.0-37.0) g/dL RDW (11.5-15.5) % BUN 23 H (9-20) mg/dL Glucose 108 H (74-99) mg/dL ALT 16 L (21-72) U/L Crossmatch See Detail 04/26/19 04/27/19 Range/Units 22:14 03:59 RBC 2.80 L 2.70 L (4.30-5.90) m/uL Hgb 7.4 L 7.0 L (13.0-17.5) gm/dL Hct 23.0 L 22.7 L (39.0-53.0) % MCHC 30.9 L (31.0-37.0) g/dL RDW 15.6 H (11.5-15.5) % BUN (9-20) mg/dL Glucose (74-99) mg/dL ALT (21-72) U/L Crossmatch Thrombosis Risk Factor Assmnt - Choose All That Apply Any of the Below Risk Factors Present?: No Each Risk Factor Represents 2 Points: Age 61-74 years Thrombosis Risk Factor Assessment Total Risk Factor Score: 2 Thrombosis Risk Factor Assessment Level: Low Risk Assessment and Plan Plan: -Acute lower GI bleed: Either hemorrhoidal or diverticular gastro-oncology will be consulted patient will be monitored overnight and hold off on aspirin and Pl avix. -History of cerebral vascular accident with residual weakness 4/5 strength in right upper and lower extremities. -Hyperlipidemia -Hypertension: Coreg will be continued but will hold off on lisinopril because of anticipation that his blood pressure will drop because of acute GI bleed. -Seizure disorder -Coronary artery disease with cardiac catheterization and stent to RCA in February 2019 For above-mentioned chronic medical problems patient will be resumed on appropriate home medications
--- NOTE | 2019-04-27 16:15 | P.PN ---
Subjective Progress Note Date: 04/27/19 Principal diagnosis: This is a 64-year-old male who was admitted with GI bleed that is being closely monitored. Patient states that he was having bright red blood with bowel moveme nts and last episode was yesterday. Patient states that he is currently on aspirin and Plavix for CVA with right side upper and lower involvement that is still currently active. Patient denies any shortness of breath, chest pain, palpitations at this time. Patient is currently still nothing by mouth. Patient denies any abdominal pain just having some mild cramping at times. Patient denies any nausea or vomiting at this time patient is afebrile. Awaiting gastric consult at this time. Objective - Vital Signs Vital signs: Vital Signs Temp 98.9 F 04/27/19 12:58 Pulse 68 04/27/19 12:58 Resp 16 04/27/19 12:58 BP 138/80 04/27/19 12:58 Pulse Ox 98 04/27/19 12:58 Intake & Output 04/26/19 04/27/19 04/27/19 18:59 06:59 18:59 Intake Total 760 Output Total 1300 350 Balance -1300 410 Weight 90.718 kg 84.5 kg Intake: IV 430 Invasive Line 1 30 Sodium Chloride 0.9% 1, 400 000 ml @ 100 mls/hr IV . Q10H [facility] Rx#:[id number] Oral 20 Blood Product 310 Rc As-1 Unit 310 [id number] Output: Urine 1300 350 Other: Voiding Method Urinal Urinal # Voids 300 - Exam Gen: This is a 64-year-old male that is lying in bed in no acute distress. Vi ad signs are stable HEENT: Head is atraumatic, normocephalic. Pupils equal, round. Sclerae is anict lo. NECK: Supple. No JVD. No lymphadenopathy. No thyromegaly. LUNGS: Clear to auscultation. No wheezes or rhonchi. No intercostal retractions. HEART: Regular rate and rhythm. No murmur. ABDOMEN: Soft. Bowel sounds are present. No masses. No tenderness. EXTREMITIES: No pedal edema. No calf tenderness. Right side upper and lower extremities are weak with residual from a previous CVA, assistance to move the right wrist NEUROLOGICAL: Patient is awake, alert and oriented x3. - Labs CBC & Chem 7: 04/27/19 03:59 04/27/19 03:59 Labs: Abnormal Lab Results - Last 24 Hours (Table) 04/26/19 04/26/19 04/27/19 Range/Units 16:31 22:14 03:59 RBC 2.80 L 2.70 L (4.30-5.90) m/uL Hgb 7.4 L 7.0 L (13.0-17.5) gm/dL Hct 23.0 L 22.7 L (39.0-53.0) % MCHC 30.9 L (31.0-37.0) g/dL RDW 15.6 H (11.5-15.5) % Crossmatch See Detail Assessment and Plan Assessment: Acute lower GI bleed: Either hemorrhoidal or by diverticular. Awaiting gastroenterology consult for possible scope. Aspirin and Plavix being held at this time. 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 We'll continue to monitor Seizure disorder Coronary artery disease with cardiac catheterization and stent to the RCA in February 2019 GI prophylaxis Recommendations and discussion: Recommend to continue current medications, we'll continue to hold anticoagulants. Continue symptomatic treatment. Patient's hemoglobin was reported as a 7 this morning and will be transfused as needed. 1 unit of packed red blood cells was ordered. We'll continue to monitor labs and vital signs. Guarded prognosis. Further recommendations to follow. Awaiting gastric consult and report.
[2019-04-27 19:53] LABS: Basophils # (A) 0.1 k/uL (0-0.2); Basophils % (A) 1 %; Eosinophils # (A) 0.1 k/uL (0-0.7); Eosinophils % (A) 1 %; HCT 32.4 % (39.0-53.0); Hypochromasia Marked; Lymphocytes # (A) 1.2 k/uL (1.0-4.8); Lymphocytes % (A) 8 %; MCH 26.4 pg (25.0-35.0); MCHC 32.2 g/dL (31.0-37.0); MCV 81.8 fL (80.0-100.0); Mean Platelet Volume 7.3; Monocytes # (A) 0.9 k/uL (0-1.0); Monocytes % (A) 6 %; Neutrophils # (A) 11.9 k/uL (1.3-7.7); Neutrophils % (A) 82 %; Platelet Count 293 k/uL (150-450); Poikilocytosis Moderate; RBC 3.96 m/uL (4.30-5.90); WBC 14.5 k/uL (3.8-10.6)
[2019-04-27 20:07] LABS: HGB 10.4 gm/dL (13.0-17.5)
[2019-04-27] MEDS: MAGNESIUM OXIDE 400 MG TAB PO SCH (20:15)
[2019-04-27] MEDS: CHOLECALCIFEROL 1,000 UNIT TAB PO SCH (20:15)
--- NOTE | 2019-04-27 20:31 | P.CONS ---
History of Present Illness - Reason for Consult Consult date: 04/27/19 Blood per rectum Requesting physician: Carmel Antonio - Chief Complaint Blood per rectum - History of Present Illness 64-year-old male with prior history of CVA approximately 20 years ago with residual right-sided weakness who presented to the hospital with complaints of bright red blood per rectum. He reports that he has been seeing blood with bowel movements over the past 6 months and believed it was secondary to hemorrhoids. Prior to this the patient does not recall episodes of bright red blood per rectum. He denies any abdominal pain with the episodes. He reports that he has been having approximately 2-3 bowel movements a day with bright red blood noted with the stool. The patient feels he amount of blood has increased over the 2 or 3 days prior to admission. The patient has been maintained on Plavix therapy secondary to his history of CVA. He is denying any NSAID use. No prior EGD or colonoscopy reported. Hemoglobin 8 on presentation subsequently fell to 7.4 and then 7.0, currently 10.4 status post transfusion. WBC 7.1, platelet count 299, total bilirubin 0.3, alkaline phosphatase 65, AST 21 and ALT 16 with an INR of 1. Review of Systems REVIEW OF SYSTEMS: CONSTITUTIONAL: Denies any fevers, chills, weight change or fatigue. CARDIOVASCULAR: Denies any chest pain, palpitations high or low blood pressures RESPIRATORY: Denies any shortness of breath, hemoptysis or cough. GENITOURINARY: No dysuria or hematuria. MUSCULOSKELETAL: No weakness reported. SKIN: Denies any new rashes or lesions, jaundice or pallor. PSYCHIATRIC: Denies any depression or anxiety. NEUROLOGY: Denies headache, denies any new focal deficits, does have residual weakness of the right upper and lower extremities and some expressive aphasia. EARS/NOSE/THROAT: No recent hearing change, congestion, nasal discharge or sore throat. EYES: No pain in eyes, discharge or change in vision. GASTROINTESTINAL: As per HPI. Past Medical History Past Medical History: Coronary Artery Disease (CAD), CVA/TIA, Hyperlipidemia, Hypertension, Seizure Disorder Additional Past Medical History / Comment(s): Right SIDED WEAKNESS AFTER STROKE- NOT MUCH USE OF Right HAND , USES A WHEEL CHAIR,PIVOTS USES A QUAD CANE. History of Any Multi-Drug Resistant Organisms: None Reported Past Surgical History: Heart Catheterization With Stent Additional Past Surgical History / Comment(s): right hand surgery for pins, one testicle removed, 2 stents RCA 02/19/2019 Past Anesthesia/Blood Transfusion Reactions: No Reported Reaction Date of Last Stent Placement:: 02/19/2018 Past Psychological History: No Psychological Hx Reported Smoking Status: Former smoker Past Alcohol Use History: None Reported Additional Past Alcohol Use History / Comment(s): NO HISTORY AVAILABLE REGARDING HOW LONG HE SMOKED OR WHEN HE QUIT Past Drug Use History: None Reported - Past Family History Mother Family Medical History: Cancer Medications and Allergies Home Medications Medication Instructions Recorded Confirmed Type Acetaminophen Tab [Tylenol] 650 mg PO Q4H PRN 01/06/19 04/26/19 History Ascorbic Acid [Vitamin C] 500 mg PO HS@2100 01/06/19 04/26/19 History Aspirin [Children's Aspirin] 81 mg PO HS@2100 01/06/19 04/26/19 History Bisacodyl 10 mg RECTAL DAILY PRN 01/06/19 04/26/19 History Carvedilol [Coreg] 3.125 mg PO BID 01/06/19 04/26/19 History Cholecalciferol [Vitamin D3 (25 2,000 unit PO HS@2100 01/06/19 04/26/19 History Mcg = 1000 Iu)] Clopidogrel [Plavix] 75 mg PO HS 01/06/19 04/26/19 History Lisinopril 40 mg PO DAILY 01/06/19 04/26/19 History Potassium Chloride ER [K-Dur 20] 20 meq PO DAILY 01/06/19 04/26/19 History levETIRAcetam [Keppra] 500 mg PO BID@0700,1800 01/06/19 04/26/19 History Magnesium Oxide [Mag-Ox] 400 mg PO HS 02/18/19 04/26/19 History Atorvastatin [Lipitor] 40 mg PO DAILY 04/26/19 04/26/19 History Geritussin Dm 10 ml PO Q6H PRN 04/26/19 04/26/19 History Major-Prep Henrroid Oint 1 applic TOPICAL DAILY PRN 04/26/19 04/26/19 History Allergies Allergy/AdvReac Type Severity Reaction Status Date / Time No Known Allergies Allergy Verified 04/26/19 14:00 Physical Exam Vitals: Vital Signs Temp Pulse Pulse Resp BP BP Pulse Ox 04/27/19 12:58 98.9 F 68 16 138/80 98 04/27/19 12:28 98.5 F 65 18 147/67 97 04/27/19 12:18 99.2 F 62 18 146/68 04/27/19 12:00 99.2 F 63 18 149/66 95 04/27/19 08:00 98.9 F 65 18 115/59 95 04/27/19 04:00 98.0 F 61 16 101/51 95 04/27/19 03:46 70 16 04/26/19 23:32 98.2 F 70 16 116/55 96 04/26/19 21:25 98.4 F 59 L 16 111/59 100 04/26/19 20:20 72 18 155/55 98 04/26/19 18:37 98.1 F 70 16 169/74 98 04/26/19 17:48 75 18 130/73 97 Intake and Output 04/27/19 04/27/19 04/27/19 06:59 14:59 22:59 Intake Total 450 310 Output Total 1100 350 Balance -1100 100 310 Intake: IV 430 Invasive Line 1 30 Sodium Chloride 0.9% 1, 400 000 ml @ 100 mls/hr IV . Q10H [facility] Rx#:[id number] Oral 20 Blood Product 0 310 Rc As-1 Unit 0 310 [id number] Output: Urine 1100 350 Other: Voiding Method Urinal Urinal # Voids 300 Weight 84.5 kg On physical examination, patient appears comfortable in no apparent distress. HEAD: Normocephalic, atraumatic. EYES: No scleral icterus. No conjunctival injection. MOUTH: No lesions, tongue midline. NECK: Trachea midline, no gross abnormalities. CHEST: Clear to auscultation with no wheezing or rhonchi appreciated. HEART: Regular rate and rhythm. ABDOMEN: Soft. Bowel sounds are positive. No organomegaly. No guarding or rigidity. EXTREMITIES: No pedal edema. SKIN: No rashes, no jaundice. NEUROLOGIC: Alert and oriented x3. Right sided weakness with 2/5 strength in right upper and lower extremity, chronic since CVA. Results CBC & Chem 7: 04/27/19 19:04 04/27/19 03:59 Labs: Abnormal Lab Results - Last 24 Hours (Table) 07/04/26/19 04/27/19 Range/Units 16:31 22:14 03:59 RBC 2.80 L 2.70 L (4.30-5.90) m/uL Hgb 7.4 L 7.0 L (13.0-17.5) gm/dL Hct 23.0 L 22.7 L (39.0-53.0) % MCHC 30.9 L (31.0-37.0) g/dL RDW 15.6 H (11.5-15.5) % Crossmatch See Detail Assessment and Plan (1) Anemia due to blood loss, acute Narrative/Plan: 64-year-old male with history of CVA maintained on Plavix therapy who presented to the hospital due to bright red blood per rectum. This has been going on for the past 6 months but has increased prior to presentation with the patient repo rting 2-3 bowel movements per day with gross blood in the toilet. Denies any prior history of GI bleed, nausea or vomiting, coffee-ground emesis or melena. No prior history of EGD or colonoscopy. Unknown etiology, with differential including diverticular bleed, hemorrhoidal bleed, stercoral ulcer, AVM or other etiology. Current Visit: Yes Status: Acute Code(s): D62 - ACUTE POSTHEMORRHAGIC ANEMIA SNOMED Code(s): 234300493 (2) History of CVA with residual deficit Current Visit: Yes Status: Acute Code(s): I69.30 - UNSPECIFIED SEQUELAE OF CEREBRAL INFARCTION SNOMED Code(s): 071281809 (3) GI bleed Current Visit: Yes Status: Acute Code(s): K92.2 - GASTROINTESTINAL HEM ORRHAGE, UNSPECIFIED SNOMED Code(s): 15148087 Plan: Supportive care Nothing by mouth Clear liquid diet tomorrow if hemoglobin stable and decreased blood per rectum Continue Protonix therapy Continue monitor hemoglobin and hematocrit and transfuse as needed Continue to hold Plavix Patient will need colonoscopic evaluation with consideration for inpatient versus outpatient evaluation pending clinical course, optimally Plavix should be held 5 days prior to procedure Thank you for allowing us to participate in the care of the patient we will continue to follow
[2019-04-27] MEDS: PANTOPRAZOLE 40 MG/10 ML VIAL IVP SCH (22:26)
[2019-04-28 06:30] LABS: Hypochromasia Moderate; MCH 25.7 pg (25.0-35.0); MCHC 30.6 g/dL (31.0-37.0); MCV 83.9 fL (80.0-100.0); Mean Platelet Volume 6.7; Platelet Count 321 k/uL (150-450); Poikilocytosis Slight; RDW 15.4 % (11.5-15.5); WBC 14.1 k/uL (3.8-10.6)
[2019-04-28] MEDS: levETIRAcetam 500 MG TAB PO SCH ×2 (06:56→18:27)
[2019-04-28] MEDS: CARVEDILOL 3.125 MG TAB PO SCH ×2 (06:56→18:27)
[2019-04-28] MEDS: VANCOMYCIN ORAL SOLUTION 250 MG/5 ML BOTTLE PO SCH ×3 (06:56→18:28)
[2019-04-28] MEDS: SODIUM CHLORIDE 0.9% 1,000 ML IV SCH ×2 (06:59→10:00)
[2019-04-28] MEDS: ATORVASTATIN 40 MG TAB PO SCH (09:59)
[2019-04-28] MEDS: PANTOPRAZOLE 40 MG/10 ML VIAL IVP SCH (09:59)
--- NOTE | 2019-04-28 11:12 | P.PN ---
Subjective Progress Note Date: 04/28/19 Principal diagnosis: Rectal bleeding No further episodes of rectal bleeding. Stool studies positive for Clostridium difficile. Receiving oral vancomycin. Hemoglobin 8. Multiple bowel movements through the night and this morning. Objective - Vital Signs Vital signs: Vital Signs Temp 98.4 F 04/28/19 04:10 Pulse 71 04/28/19 04:10 Resp 17 04/28/19 04:10 BP 129/58 04/28/19 04:10 Pulse Ox 95 04/28/19 04:10 Intake & Output 04/27/19 04/28/19 04/28/19 18:59 06:59 18:59 Intake Total 780 0 Output Total 350 550 Balance 430 -550 0 Weight 82.5 kg Intake: IV 450 Invasive Line 1 50 Sodium Chloride 0.9% 1, 400 000 ml @ 100 mls/hr IV . Q10H [facility] Rx#:[id number] Oral 20 0 Blood Product 310 Rc As-1 Unit 310 [id number] Output: Urine 350 550 Other: Voiding Method Urinal Urinal # Voids 300 1 # Bowel Movements 4 - Exam General appearance: The patient is alert, oriented, in no acute distress. HET: Head is normocephalic and atraumatic. Pupils are equal and reactive. Oropharynx is clear without lesions. Neck: Supple without lymphadenopathy. Trachea midline. Heart: S1 S2. Regular rate and rhythm. Lungs: No crackles or wheezes are heard. Abdomen: Soft, nontender, nondistended with bowel sounds. No peritoneal signs. No palpable organomegaly or masses. Extremities: Normal skin color and turgor. No cyanosis, rash, ulceration, clubbing, or edema. Radial and pedal pulses are 2/4 bilaterally. Neurological: No focal deficits. Strength and sensation are grossly intact. - Labs CBC & Chem 7: 04/28/19 05:45 04/27/19 03:59 Labs: Abnormal Lab Results - Last 24 Hours (Table) 04/26/19 04/27/19 04/28/19 Range/Units 16:31 19:04 01:00 WBC 14.5 H (3.8-10.6) k/uL RBC 3.96 L (4.30-5.90) m/uL Hgb 10.4 L D (13.0-17.5) gm/dL Hct 32.4 L (39.0-53.0) % MCHC (31.0-37.0) g/dL Neutrophils # 11.9 H (1.3-7.7) k/uL C. difficile (EIA) Intrp Positive A (Negative) Crossmatch See Detail 04/28/19 Range/Units 05:45 WBC 14.1 H (3.8-10.6) k/uL RBC 3.10 L (4.30-5.90) m/uL Hgb 8.0 L D (13.0-17.5) gm/dL Hct 26.0 L (39.0-53.0) % MCHC 30.6 L (31.0-37.0) g/dL Neutrophils # (1.3-7.7) k/uL C. difficile (EIA) Intrp (Negative) Crossmatch Assessment and Plan (1) Clostridium difficile colitis Current Visit: Yes Status: Acute Code(s): A04.72 - ENTEROCOLITIS D/T CLOSTRIDIUM DIFFICILE, NOT SPCF RECUR SNOMED Code(s): 583521979 (2) Anemia due to blood loss, acute Current Visit: Yes Status: Acute Code(s): D62 - ACUTE POSTHEMORRHAGIC ANEMIA SNOMED Code(s): 132706630 (3) CAD (coronary artery disease) Current Visit: No Status: Acute Code(s): I25.10 - ATHSCL HEART DISEASE OF [place] CORONARY ARTERY W/O ANG PCTRS SNOMED Code(s): 91209309 Plan: 1. CBC electrolyte monitoring. Low residue diet with yogurt supplements. Inpatient endoscopic exams not planned at this time until C. diff is resolved. Patient can follow up in the outpatient setting for endoscopic exam evaluation.we'll be available for questions or concerns. Assessment and plan a care discussed with Dr. Orosco
[2019-04-28] MEDS: CHERRY FLAVOR 60 ML BOTTLE PO PRN (12:29)
[2019-04-28 14:06] LABS: HCT 31.3 % (39.0-53.0); HGB 9.2 gm/dL (13.0-17.5); Hypochromasia Marked; MCH 25.4 pg (25.0-35.0); MCHC 29.3 g/dL (31.0-37.0); MCV 86.9 fL (80.0-100.0); Mean Platelet Volume 7.2; Platelet Count 350 k/uL (150-450); Poikilocytosis Slight; RBC 3.61 m/uL (4.30-5.90); RDW 15.4 % (11.5-15.5); WBC 13.8 k/uL (3.8-10.6)
[2019-04-28 14:15] LABS: Calcium 8.7 mg/dL (8.4-10.2); Magnesium 1.9 mg/dL (1.6-2.3); Potassium 3.9 mmol/L (3.5-5.1)
--- NOTE | 2019-04-28 15:04 | P.PN ---
Subjective Progress Note Date: 04/28/19 Principal diagnosis: This is a 64-year-old male who was admitted with GI bleed that is being closely monitored. Patient states that he was having bright red blood with bowel moveme nts and last episode was yesterday. Patient states that he is currently on aspirin and Plavix for CVA with right side upper and lower involvement that is still currently active. Patient denies any shortness of breath, chest pain, palpitations at this time. Patient is currently still nothing by mouth. Patient denies any abdominal pain just having some mild cramping at times. Patient denies any nausea or vomiting at this time patient is afebrile. Awaiting gastric consult at this time. 04/28/2019 This is a 64-year-old male who was admitted with acute GI bleed that is being closely monitored. Patient did have a lot of loose bowel movements last night and some this morning that did not have any blood in them. Around 11 AM today the patient experienced 2 loose bowel movements with large amounts of bright red blood noted. Patient's stool culture also tested positive for C. diff and is currently being monitored with GI. Patient is starting oral vanco today. Currently we are still holding his aspirin and Plavix as he is active bleeding rectally again. Patient is currently not a candidate for a scope with GI due to the C. diff until the infection is cleared. Patient denies having any nausea, or vomiting and denies any stomach pain at this time. Patient is afebrile. Repeat CBC done this afternoon shows a hemoglobin of 9.2. Per GI they will be ordering a tagged RBC scan as he is still actively bleeding. Patient is currently on a clear liquid diet and tolerating well. Objective - Vital Signs Vital signs: Vital Signs Temp 98.4 F 04/28/19 04:10 Pulse 71 04/28/19 04:10 Resp 17 04/28/19 04:10 BP 129/58 04/28/19 04:10 Pulse Ox 95 04/28/19 04:10 Intake & Output 04/27/19 04/28/19 04/28/19 18:59 06:59 18:59 Intake Total 780 0 Output Total 350 550 Balance 430 -550 0 Weight 82.5 kg Intake: IV 450 Invasive Line 1 50 Sodium Chloride 0.9% 1, 400 000 ml @ 100 mls/hr IV . Q10H [facility] Rx#:[id number] Oral 20 0 Blood Product 310 Rc As-1 Unit 310 [id number] Output: Urine 350 550 Other: Voiding Method Urinal Urinal # Voids 300 1 # Bowel Movements 4 - Exam Gen: This is a 64-year-old male sitting up in the recliner at the bedside in no acute distress. HEENT: Head is atraumatic, normocephalic. Pupils equal, round. Sclerae is anicteric. NECK: Supple. No JVD. No lymphadenopathy. No thyromegaly. LUNGS: Clear to auscultation. No wheezes or rhonchi. No intercostal retractions. HEART: Regular rate and rhythm. No murmur. ABDOMEN: Soft. Bowel sounds are present. No masses. No tenderness. EXTREMITIES: No pedal edema. No calf tenderness. NEUROLOGICAL: Patient is awake, alert and oriented x3. Patient has a history of right-sided deficit in the upper and lower extremity from a history of a CVA. - Labs CBC & Chem 7: 04/28/19 13:46 04/28/19 13:46 Labs: Abnormal Lab Results - Last 24 Hours (Table) 04/26/19 04/27/19 04/28/19 Range/Units 16:31 19:04 01:00 WBC 14.5 H (3.8-10.6) k/uL RBC 3.96 L (4.30-5.90) m/uL Hgb 10.4 L D (13.0-17.5) gm/dL Hct 32.4 L (39.0-53.0) % MCHC (31.0-37.0) g/dL Neutrophils # 11.9 H (1.3-7.7) k/uL Carbon Dioxide (22-30) mmol/L Glucose (74-99) mg/dL C. difficile (EIA) Intrp Positive A (Negative) Crossmatch See Detail 04/28/19 04/28/19 04/28/19 Range/Units 05:45 13:46 13:46 WBC 14.1 H 13.8 H (3.8-10.6) k/uL RBC 3.10 L 3.61 L (4.30-5.90) m/uL Hgb 8.0 L D 9.2 L (13.0-17.5) gm/dL Hct 26.0 L 31.3 L (39.0-53.0) % MCHC 30.6 L 29.3 L (31.0-37.0) g/dL Neutrophils # (1.3-7.7) k/uL Carbon Dioxide 19 L (22-30) mmol/L Glucose 158 H (74-99) mg/dL C. difficile (EIA) Intrp (Negative) Crossmatch Assessment and Plan Assessment: Acute lower GI bleed: Either hemorrhoidal or by diverticular. GI will not be scoping at this time due to positive C. diff. Aspirin and Plavix being held at this time per GI recommendations this patient is actively bleeding rectally again with each bowel movement. 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 We'll continue to monitor Seizure disorder Coronary artery disease with cardiac catheterization and stent to the RCA in February 2019 GI prophylaxis Clostridium difficile currently being treated with oral vancomycin. Recommendations and discussion: Recommend to continue current medications, we'll continue to hold anticoagulants due to actively bleeding. Continue symptomatic treatment. Patient's hemoglobin is 9.2 this afternoon and will be closely monitored. We'll continue to monitor labs and vital signs. Guarded prognosis. Further recommendations to follow. Awaiting report from GI and the tagged RBC scan report.
--- NOTE | 2019-04-28 15:25 | NM ---
EXAMINATION TYPE: NM GI bleeding DATE OF EXAM: 04/28/2019 HISTORY: Rectal bleeding COMPARISON: NONE Following administration of 3 ml PYP 24.9 mCi Tc 99m Sodium pertechnetate. Immediate images post inje ction. FINDINGS: Normal tracer activity is seen in the blood pool of the abdominal aorta, common iliac arteries, femor al arteries, liver, and spleen on all of the interval images. Later images show accumulation of trace r in the urinary bladder, which is consistent with excreted tracer. Abnormal accumulation of the radiopharmaceutical is noted by the 15 minute and continues at the level of the rectum. IMPRESSION: Positive gastrointestinal bleeding study at the level of the rectum. A Red level critical message alert has been initiated for Avila Fuentes MD via the [facility] Critical Results System on 04/28/2019 3:22 PM. This message alert has been sent to Avila Fuentes MD via the preferences provided by the clinician for the receipt of Radiology Critical Findings. Message ID [id number].
[2019-04-28 16:21] LABS: Glucose,Whole Blood 120 mg/dL (75-99)
[2019-04-28] MEDS: MAGNESIUM OXIDE 400 MG TAB PO SCH (20:35)
[2019-04-28] MEDS: CHOLECALCIFEROL 1,000 UNIT TAB PO SCH (20:35)
[2019-04-29] MEDS: VANCOMYCIN ORAL SOLUTION 250 MG/5 ML BOTTLE PO SCH ×4 (00:19→17:32)
[2019-04-29] MEDS: CHERRY FLAVOR 60 ML BOTTLE PO PRN ×4 (00:20→11:34)
[2019-04-29 01:21] LABS: HCT 26.9 % (39.0-53.0); HGB 8.8 gm/dL (13.0-17.5); Hypochromasia Moderate; MCH 26.9 pg (25.0-35.0); MCHC 32.7 g/dL (31.0-37.0); MCV 82.4 fL (80.0-100.0); Mean Platelet Volume 7.9; Platelet Count 277 k/uL (150-450); Poikilocytosis Moderate; RBC 3.26 m/uL (4.30-5.90); WBC 10.1 k/uL (3.8-10.6)
[2019-04-29] MEDS: SODIUM CHLORIDE 0.9% 1,000 ML IV SCH ×4 (02:00→22:12)
[2019-04-29] MEDS: levETIRAcetam 500 MG TAB PO SCH ×2 (07:01→17:32)
[2019-04-29] MEDS: CARVEDILOL 3.125 MG TAB PO SCH ×2 (07:01→17:32)
[2019-04-29] MEDS: PANTOPRAZOLE 40 MG/10 ML VIAL IVP SCH (07:43)
[2019-04-29] MEDS: ATORVASTATIN 40 MG TAB PO SCH (07:43)
[2019-04-29 08:54] LABS: HGB 8.8 gm/dL (13.0-17.5); Hypochromasia Marked; MCH 26.3 pg (25.0-35.0); MCHC 31.6 g/dL (31.0-37.0); MCV 83.4 fL (80.0-100.0); Mean Platelet Volume 7.2; Platelet Count 293 k/uL (150-450); Poikilocytosis Moderate; RBC 3.35 m/uL (4.30-5.90); RDW 14.9 % (11.5-15.5); WBC 8.5 k/uL (3.8-10.6)
[2019-04-29 09:07] LABS: African American GFR (CKD) >90 (>60 ml/min/1.73 sqM); Anion Gap 8 mmol/L; Blood Urea Nitrogen 11 mg/dL (9-20); Calcium 8.6 mg/dL (8.4-10.2); Carbon Dioxide 22 mmol/L (22-30); Chloride 109 mmol/L (98-107); Glucose 104 mg/dL (74-99); Potassium 4.1 mmol/L (3.5-5.1); Sodium 139 mmol/L (137-145)
--- NOTE | 2019-04-29 11:32 | CONS ---
CONSULTATION PULMONARY CRITICAL CARE CONSULTATION: DATE OF CONSULTATION: April 29, 2019 This is a 64-year-old male who was admitted with a GI bleed. The patient apparently had been having problems with lower GI bleeding for about 4 or 5 months now. The patient apparently was seen in the emergency room on April 26. The patient apparently had been having worsening and progressive bleeding from the lower GI tract. He was having burgundy stools, some bright red bleeding per rectum. The patient was seen and admitted to the hospital for GI bleed and anemia. Thus far, he has received 2 units of PRBCs. The patient had a tagged red blood cell study which was positive in the area of the lower rectum. He also was C diff positive. He is currently receiving no supplemental oxygen. His IV is 0.9 at 100 mL an hour. His past medical history includes previous history of left CVA and CAD with previous stents. He has been on Plavix and aspirin. Both have been stopped. The patient is feeling well. Denies any pain or discomfort. There is no respiratory issues such as shortness of breath, chest tightness, wheezing, or cough. No chest pain or chest discomfort. No additional GI or complaints. HOME MEDICATIONS: His home medications include Tylenol, vitamin C, aspirin, stool softeners, rectal suppositories, Coreg, vitamin D3, Plavix, lisinopril, K-Dur, Keppra, Mag-Ox, Lipitor and Mary Kay-Tussin DM as well as Major-Prep hemorrhoidal ointment. ALLERGIES: Allergies are denied. MEDICAL HISTORY: His medical history include among other things, CAD, CVA, hyperlipidemia, hypertension, seizure disorder, right-sided weakness following a left CVA. SURGICAL HISTORY: Surgical history includes heart catheterization with stent placement, right hand surgery, unilateral orchiectomy and 2 stents in his right coronary artery in Feb, 2019. SOCIAL HISTORY: Positive for previous tobacco use. He denies any alcohol or illicit drug use. FAMILY HISTORY: Positive for mother with cancer. He does not know what type of cancer she has. The rest of the family is relatively healthy. REVIEW OF SYSTEMS: CONSTITUTIONAL: Negative. NEUROLOGIC: Negative. HEENT: Negative. CARDIOVASCULAR: Negative. PULMONARY: Negative. GI: GI bleeding, bright red bleeding per rectum and maroon stools : Negative. RHEUMATOLOGIC: Negative. IMMUNOLOGIC: Negative. ENDOCRINOLOGIC: Negative. DERMATOLOGIC: Negative. PHYSICAL EXAMINATION: VITAL SIGNS: Current vital signs are reviewed. Temperature 98.2, heart rate 53, respiratory rate 18, blood pressure 160/74, mean 102, saturations are 98% on room air. GENERAL: Appears in no acute distress. HEENT: Examination is grossly unremarkable. Mucous membranes are moist. No oxygen supplementation. NECK: Supple. Full range of motion. No adenopathy, thyromegaly or neck vein distention. CARDIOVASCULAR: Examination reveals a regular rhythm and rate. S1, S2 normal. There is no murmur. LUNGS: Reveal clear breath sounds. No wheezes or rhonchi. No crackles. Breath sounds equal bilaterally. ABDOMEN: Soft. Bowel sounds are heard. No masses or tenderness. EXTREMITIES: Are intact. No cyanosis, clubbing, or edema. SKIN: Without rash. NEUROLOGIC: Examination is brief but nonfocal. LAB DATA: Lab data includes a white count 8.5, hemoglobin 8.8, hematocrit 28.8, platelet count normal. Sodium, potassium normal. Chloride 109, CO2 of 22. Anion gap 8. BUN and creatinine were 11 and 0.93. C difficile toxin was positive. PT, INR and PTT all normal. His tagged red blood cell study was positive in the area of the lower rectum. MEDICATIONS: Medications are reviewed. He is currently just on Tylenol, Lipitor, Dulcolax, Coreg, Toth Syrup, vitamin D3, Keppra, Mag-Ox, Protonix and vancomycin orally. He is also on a 0.9 IV at 100 mL an hour. ASSESSMENT: 1. Lower gastrointestinal bleed, in the area of the rectum, as seen on tagged red blood cell study. 2. History of chronic anemia and chronic gastrointestinal bleeding. 3. History of hypertension. 4. History of hyperlipidemia. 5. Previous history of left cerebrovascular accident with right-sided weakness, right upper extremity greater than right lower extremity. 6. History of coronary artery disease with previous stenting x2 in the right coronary artery. 7. History of seizure disorder. 8. History of unilateral orchiectomy. PLAN: Currently, the patient is doing well. I told the patient he will be watched here in the ICU for another full day. No additional recommendations are made. Unnecessary medications were discontinued. The patient looks reasonably stable at this time. He is still having ongoing lower GI bleeds. We will continue to watch carefully. Additional recommendations and suggestions are forthcoming. MMODL / IJN: [id number] /
--- NOTE | 2019-04-29 11:40 | P.GSCN ---
History of Present Illness Consult date: 04/29/19 Reason for Consult: rectal bleeding Requesting physician: Avila E Sheet History of present illness: CHIEF COMPLAINT: rectal bleeding HISTORY OF PRESENT ILLNESS: 64 year old male who resides at [facility] who is admitted to the hospital secondary to GI bleeding. Patient was found to have C. Diff so colonoscopy not advised at this time. Patient denies previous history of C. diff. Denies recent antibiotic exposure. Tagged RBC scan completed yesterday positive for GI bleeding at the level of the rectum. Patient examined at the bedside this morning in the intensive care unit. He reports intermittent bleeding from his rectum on and off for the last 6 months, but noticed it has gotten worse over the past week. He denies any abdominal pain. Denies nausea or vomiting. Reports BM this morning with some bright red blood. Hemoglobin on admission 8.0. Baseline 11-12. Patients hemoglobin this morning is 8.8. Aspirin and plavix remain on hold. Patient denies previous colonoscopy. PAST MEDICAL HISTORY: See list. PAST SURGICAL HISTORY: See list. SOCIAL HISTORY: No illicit drug use. REVIEW OF SYSTEMS: CONSTITUTIONAL: Denies fever or chills. HEENT: Denies blurred vision, vision changes, or eye pain. Denies hemoptysis CARDIOVASCULAR: Denies chest pain or pressure. RESPIRATORY: No shortness of breath. GASTROINTESTINAL: Refer to HPI for pertinent findings HEMATOLOGIC: Denies bleeding disorders. GENITOURINARY: Denies any blood in urine. SKIN: Denies pruitis. Denies rash. PHYSICAL EXAM: VITAL SIGNS: Reviewed. GENERAL: Well-developed in no acute distress. HEENT: No sclera icterus. Extraocular movements grossly intact. Moist buccal mucosa. Head is atraumatic, normocephalic. ABDOMEN: Soft. Nondistended. Nontender. NEUROLOGIC: Alert and oriented. Cranial nerves II through XII grossly intact. ASSESSMENT: 1. Acute lower GI bleed 2. Acute blood loss anemia 3. C. difficile colitis PLAN: 1. NPO except ice chips 2. Monitor hemoglobin 3. Continue antibiotics 4. Further recommendations pending Nurse practitioner note has been reviewed by physician. Signing provider agrees with the documented findings, assessment, and plan of care. Past Medical History Past Medical History: Coronary Artery Disease (CAD), CVA/TIA, Hyperlipidemia, Hypertension, Seizure Disorder Additional Past Medical History / Comment(s): Right SIDED WEAKNESS AFTER STROKE- NOT MUCH USE OF Right HAND , USES A WHEEL CHAIR,PIVOTS USES A QUAD CANE. History of Any Multi-Drug Resistant Organisms: None Reported Past Surgical History: Heart Catheterization With Stent Additional Past Surgical History / Comment(s): right hand surgery for pins, one testicle removed, 2 stents RCA 02/19/2019 Past Anesthesia/Blood Transfusion Reactions: No Reported Reaction Date of Last Stent Placement:: 02/19/2018 Past Psychological History: No Psychological Hx Reported Smoking Status: Former smoker Past Alcohol Use History: None Reported Additional Past Alcohol Use History / Comment(s): NO HISTORY AVAILABLE REGARDING HOW LONG HE SMOKED OR WHEN HE QUIT Past Drug Use History: None Reported - Past Family History Mother Family Medical History: Cancer Medications and Allergies Home Medications Medication Instructions Recorded Confirmed Type Acetaminophen Tab [Tylenol] 650 mg PO Q4H PRN 01/06/19 04/26/19 History Ascorbic Acid [Vitamin C] 500 mg PO HS@2100 01/06/19 04/26/19 History Aspirin [Children's Aspirin] 81 mg PO HS@2100 01/06/19 04/26/19 History Bisacodyl 10 mg RECTAL DAILY PRN 01/06/19 04/26/19 History Carvedilol [Coreg] 3.125 mg PO BID 01/06/19 04/26/19 History Cholecalciferol [Vitamin D3 (25 2,000 unit PO HS@2100 01/06/19 04/26/19 History Mcg = 1000 Iu)] Clopidogrel [Plavix] 75 mg PO HS 01/06/19 04/26/19 History Lisinopril 40 mg PO DAILY 01/06/19 04/26/19 History Potassium Chloride ER [K-Dur 20] 20 meq PO DAILY 01/06/19 04/26/19 History levETIRAcetam [Keppra] 500 mg PO BID@0700,1800 01/06/19 04/26/19 History Magnesium Oxide [Mag-Ox] 400 mg PO HS 02/18/19 04/26/19 History Atorvastatin [Lipitor] 40 mg PO DAILY 04/26/19 04/26/19 History Geritussin Dm 10 ml PO Q6H PRN 04/26/19 04/26/19 History Major-Prep Henrroid Oint 1 applic TOPICAL DAILY PRN 04/26/19 04/26/19 History Allergies Allergy/AdvReac Type Severity Reaction Status Date / Time No Known Allergies Allergy Verified 04/26/19 14:00 Surgical - Exam Vital Signs Temp Pulse Resp BP Pulse Ox 98.4 F 59 L 18 131/59 97 04/26/19 13:52 04/26/19 13:52 04/26/19 13:52 04/26/19 13:52 04/26/19 13:52 Results - Labs 04/29/19 08:15 04/29/19 08:15 Abnormal Lab Results - Last 24 Hours (Table) 04/26/19 04/28/19 04/28/19 Range/Units 16:31 13:46 13:46 WBC 13.8 H (3.8-10.6) k/uL RBC 3.61 L (4.30-5.90) m/uL Hgb 9.2 L (13.0-17.5) gm/dL Hct 31.3 L (39.0-53.0) % MCHC 29.3 L (31.0-37.0) g/dL Chloride (98-107) mmol/L Carbon Dioxide 19 L (22-30) mmol/L Glucose 158 H (74-99) mg/dL POC Glucose (mg/dL) (75-99) mg/dL Crossmatch See Detail 04/28/19 04/29/19 04/29/19 Range/Units 16:09 01:01 08:15 WBC (3.8-10.6) k/uL RBC 3.26 L 3.35 L (4.30-5.90) m/uL Hgb 8.8 L 8.8 L (13.0-17.5) gm/dL Hct 26.9 L 28.0 L (39.0-53.0) % MCHC (31.0-37.0) g/dL Chloride (98-107) mmol/L Carbon Dioxide (22-30) mmol/L Glucose (74-99) mg/dL POC Glucose (mg/dL) 120 H (75-99) mg/dL Crossmatch 04/29/19 Range/Units 08:15 WBC (3.8-10.6) k/uL RBC (4.30-5.90) m/uL Hgb (13.0-17.5) gm/dL Hct (39.0-53.0) % MCHC (31.0-37.0) g/dL Chloride 109 H (98-107) mmol/L Carbon Dioxide (22-30) mmol/L Glucose 104 H (74-99) mg/dL POC Glucose (mg/dL) (75-99) mg/dL Crossmatch Diabetes panel 04/28/19 04/29/19 Range/Units 13:46 08:15 Sodium 138 139 (137-145) mmol/L Potassium 3.9 4.1 (3.5-5.1) mmol/L Chloride 106 109 H (98-107) mmol/L Carbon Dioxide 19 L 22 (22-30) mmol/L BUN 15 11 (9-20) mg/dL Creatinine 1.05 0.93 (0.66-1.25) mg/dL Glucose 158 H 104 H (74-99) mg/dL Calcium 8.7 8.6 (8.4-10.2) mg/dL Calcium panel 04/28/19 04/29/19 Range/Units 13:46 08:15 Calcium 8.7 8.6 (8.4-10.2) mg/dL Pituitary panel 04/28/19 04/29/19 Range/Units 13:46 08:15 Sodium 138 139 (137-145) mmol/L Potassium 3.9 4.1 (3.5-5.1) mmol/L Chloride 106 109 H (98-107) mmol/L Carbon Dioxide 19 L 22 (22-30) mmol/L BUN 15 11 (9-20) mg/dL Creatinine 1.05 0.93 (0.66-1.25) mg/dL Glucose 158 H 104 H (74-99) mg/dL Calcium 8.7 8.6 (8.4-10.2) mg/dL Adrenal panel 04/28/19 04/29/19 Range/Units 13:46 08:15 Sodium 138 139 (137-145) mmol/L Potassium 3.9 4.1 (3.5-5.1) mmol/L Chloride 106 109 H (98-107) mmol/L Carbon Dioxide 19 L 22 (22-30) mmol/L BUN 15 11 (9-20) mg/dL Creatinine 1.05 0.93 (0.66-1.25) mg/dL Glucose 158 H 104 H (74-99) mg/dL Calcium 8.7 8.6 (8.4-10.2) mg/dL
[2019-04-29] MEDS ORDERED: BISACODYL 5 MG TABLET.DR PO STA (13:29)
--- NOTE | 2019-04-29 14:38 | P.PN ---
Subjective Progress Note Date: 04/29/19 Principal diagnosis: Rectal bleeding 2 small episodes of rectal bleeding 12 hours. Stool studies positive for Clostridium difficile. Receiving oral vancomycin. Hemoglobin 8.8. Received 1 unit of blood yesterday afternoon. Tagged RBC scan reported blood in the rectum. Denies abdominal complaints. No emesis. Afebrile. Objective - Vital Signs Vital signs: Vital Signs Temp 98.2 F 04/29/19 08:00 Pulse 58 L 04/29/19 11:00 Resp 24 04/29/19 11:00 BP 171/84 04/29/19 11:00 Pulse Ox 92 L 04/29/19 11:00 Intake & Output 04/28/19 04/29/19 04/29/19 18:59 06:59 18:59 Intake Total 1870 1200 500 Output Total 600 1550 300 Balance 1270 -350 200 Weight 92.8 kg Intake: IV 1030 1200 500 Invasive Line 2 30 Sodium Chloride 0.9% 1, 1000 1200 500 000 ml @ 100 mls/hr IV . Q10H [facility] Rx#:[id number] Oral 530 Blood Product 310 Rc As-1 Unit 310 [id number] Output: Urine 400 1550 300 Stool 200 Other: Voiding Method Urinal Urinal Urinal # Voids 0 1 0 # Bowel Movements 1 - Exam General appearance: The patient is alert, oriented, in no acute distress. HET: Head is normocephalic and atraumatic. Pupils are equal and reactive. Oropharynx is clear without lesions. Neck: Supple without lymphadenopathy. Trachea midline. Heart: S1 S2. Regular rate and rhythm. Lungs: No crackles or wheezes are heard. Abdomen: Soft, nontender, nondistended with bowel sounds. No peritoneal signs. No palpable organomegaly or masses. Extremities: Normal skin color and turgor. No cyanosis, rash, ulceration, clubbing, or edema. Radial and pedal pulses are 2/4 bilaterally. Neurological: No focal deficits. Strength and sensation are grossly intact. - Labs CBC & Chem 7: 04/29/19 08:15 04/29/19 08:15 Labs: Abnormal Lab Results - Last 24 Hours (Table) 04/26/19 04/28/19 04/28/19 Range/Units 16:31 13:46 13:46 WBC 13.8 H (3.8-10.6) k/uL RBC 3.61 L (4.30-5.90) m/uL Hgb 9.2 L (13.0-17.5) gm/dL Hct 31.3 L (39.0-53.0) % MCHC 29.3 L (31.0-37.0) g/dL Chloride (98-107) mmol/L Carbon Dioxide 19 L (22-30) mmol/L Glucose 158 H (74-99) mg/dL POC Glucose (mg/dL) (75-99) mg/dL Crossmatch See Detail 04/28/19 04/29/19 04/29/19 Range/Units 16:09 01:01 08:15 WBC (3.8-10.6) k/uL RBC 3.26 L 3.35 L (4.30-5.90) m/uL Hgb 8.8 L 8.8 L (13.0-17.5) gm/dL Hct 26.9 L 28.0 L (39.0-53.0) % MCHC (31.0-37.0) g/dL Chloride (98-107) mmol/L Carbon Dioxide (22-30) mmol/L Glucose (74-99) mg/dL POC Glucose (mg/dL) 120 H (75-99) mg/dL Crossmatch 04/29/19 Range/Units 08:15 WBC (3.8-10.6) k/uL RBC (4.30-5.90) m/uL Hgb (13.0-17.5) gm/dL Hct (39.0-53.0) % MCHC (31.0-37.0) g/dL Chloride 109 H (98-107) mmol/L Carbon Dioxide (22-30) mmol/L Glucose 104 H (74-99) mg/dL POC Glucose (mg/dL) (75-99) mg/dL Crossmatch Assessment and Plan (1) GI bleed Narrative/Plan: Acute rectal bleeding abdominal pain component of acute blood loss anemia with underlying C. diff infection tag RBC scan reported bleeding within the rectum differentials include but cannot be excluded inflammatory colitis proctitis, colonic diverticular bleed, bleeding AVM, stercoral ulcer, possible neoplasm. Current Visit: Yes Status: Acute Code(s): K92.2 - GASTROINTESTINAL HEMO RRHAGE, UNSPECIFIED SNOMED Code(s): 24728921 (2) Clostridium difficile colitis Current Visit: Yes Status: Acute Code(s): A04.72 - ENTEROCOLITIS D/T CLOSTRIDIUM DIFFICILE, NOT SPCF RECUR SNOMED Code(s): 886605050 (3) Anemia due to blood loss, acute Current Visit: Yes Status: Acute Code(s): D62 - ACUTE POSTHEMORRHAGIC ANEMIA SNOMED Code(s): 059470184 (4) CAD (coronary artery disease) Current Visit: No Status: Acute Code(s): I25.10 - ATHSCL HEART DISEASE OF [place] CORONARY ARTERY W/O ANG PCTRS SNOMED Code(s): 57108784 Plan: 1. CBC electrolyte monitoring. Clear liquids. EGD/colonoscopy tomorrow. Protonix. Assessment and plan a care discussed with Dr. Orosco
[2019-04-29] MEDS ORDERED: PEG 3350-NA SULF,BICARB,CL/KCL 4,000 ML BOTTLE PO ONE (16:00)
[2019-04-29] MEDS: LISINOPRIL 20 MG TAB PO SCH (19:03)
--- NOTE | 2019-04-29 19:16 | P.PN ---
Subjective Progress Note Date: 04/29/19 Principal diagnosis: This is a 64-year-old male who was admitted with GI bleed that is being closely monitored. Patient states that he was having bright red blood with bowel moveme nts and last episode was yesterday. Patient states that he is currently on aspirin and Plavix for CVA with right side upper and lower involvement that is still currently active. Patient denies any shortness of breath, chest pain, palpitations at this time. Patient is currently still nothing by mouth. Patient denies any abdominal pain just having some mild cramping at times. Patient denies any nausea or vomiting at this time patient is afebrile. Awaiting gastric consult at this time. 04/28/2019 This is a 64-year-old male who was admitted with acute GI bleed that is being closely monitored. Patient did have a lot of loose bowel movements last night and some this morning that did not have any blood in them. Around 11 AM today the patient experienced 2 loose bowel movements with large amounts of bright red blood noted. Patient's stool culture also tested positive for C. diff and is currently being monitored with GI. Patient is starting oral vanco today. Currently we are still holding his aspirin and Plavix as he is active bleeding rectally again. Patient is currently not a candidate for a scope with GI due to the C. diff until the infection is cleared. Patient denies having any nausea, or vomiting and denies any stomach pain at this time. Patient is afebrile. Repeat CBC done this afternoon shows a hemoglobin of 9.2. Per GI they will be ordering a tagged RBC scan as he is still actively bleeding. Patient is currently on a clear liquid diet and tolerating well. 04/29/19 Overnight patient was moved from his previous floor to the ICU for closer monitoring due to an increase in the amount of blood in the stool. Patient is currently at the side of the bed getting up with assistance due to his history of CVA with right side deficits to the bedside commode. This will be the second loose bowel movement with patricia red blood noted in a small amount. Hemoglobin is currently stable at 8.8. Patient denies any shortness of breath, chest pain, palpitations, nausea, or vomiting at this time. Patient denies any abdominal pain and is afebrile. Patient is NPO except ice chips at this time and is scheduled to go for an EGD and colonoscopy in the morning per GI. Patient was positive for cdiff and is being treated with oral vancomycin. Patient will be monitored closely of vitals and labs. Objective - Vital Signs Vital signs: Vital Signs Temp 98 F 04/29/19 16:00 Pulse 56 L 04/29/19 18:00 Resp 12 04/29/19 18:00 BP 188/95 04/29/19 18:00 Pulse Ox 98 04/29/19 18:00 Intake & Output 04/28/19 04/29/19 04/29/19 18:59 06:59 18:59 Intake Total 1870 1200 3500 Output Total 600 1550 703 Balance 1270 -350 2797 Weight 92.8 kg Intake: IV 1030 1200 1000 Invasive Line 2 30 Sodium Chloride 0.9% 1, 1000 1200 1000 000 ml @ 100 mls/hr IV . Q10H [facility] Rx#:[id number] Oral 530 2500 Blood Product 310 Rc As-1 Unit 310 [id number] Output: Urine 400 1550 700 Stool 200 3 Other: Voiding Method Urinal Urinal Urinal # Voids 0 1 2 # Bowel Movements 1 - Exam Gen: This is a 64-year-old male sitting at the side of the bed transferring to a commode and in no acute distress. HEENT: Head is atraumatic, normocephalic. Pupils equal, round. Sclerae is anicteric. NECK: Supple. No JVD. No lymphadenopathy. No thyromegaly. LUNGS: Clear to auscultation. No wheezes or rhonchi. No intercostal retractions. HEART: Regular rate and rhythm. No murmur. ABDOMEN: Soft. Bowel sounds are present. No masses. No tenderness. EXTREMITIES: No pedal edema. No calf tenderness. NEUROLOGICAL: Patient is awake, alert and oriented x3. Patient has a history of right-sided deficit in the upper and lower extremity from a history of a CVA. - Labs CBC & Chem 7: 04/29/19 08:15 04/29/19 08:15 Labs: Abnormal Lab Results - Last 24 Hours (Table) 04/29/19 04/29/19 04/29/19 Range/Units 01:01 08:15 08:15 RBC 3.26 L 3.35 L (4.30-5.90) m/uL Hgb 8.8 L 8.8 L (13.0-17.5) gm/dL Hct 26.9 L 28.0 L (39.0-53.0) % Chloride 109 H (98-107) mmol/L Glucose 104 H (74-99) mg/dL Assessment and Plan Assessment: Acute lower GI bleed: Either hemorrhoidal or diverticular. Although patient is positive for c diff, GI will be performing an EGD and colonoscopy in the morning. Aspirin and Plavix being held at this time per GI recommendations. tagged RBC scan showed blood in the rectum History of CVA with residual weakness in the right upper and lower extremities Hyperlipidemia Hypertension: Lisinopril being held for possibility of blood pressure decreasing due to acute GI bleeding. We'll continue to monitor Seizure disorder Coronary artery disease with cardiac catheterization and stent to the RCA in February 2019 GI prophylaxis Clostridium difficile currently being treated with oral vancomycin. Recommendations and discussion: Recommend to continue current medications, we'll continue to hold anticoagulants due to actively bleeding. Continue symptomatic treatment. Patient's hemoglobin is 8.8 and stable.He will be closely monitored. We'll continue to monitor labs and vital signs. Guarded prognosis. Further recommendations to follow. Plan is for an EGD and colonoscopy in the am.
[2019-04-29] MEDS: MAGNESIUM OXIDE 400 MG TAB PO SCH (22:06)
[2019-04-29] MEDS: CHOLECALCIFEROL 1,000 UNIT TAB PO SCH (22:06)
[2019-04-30] MEDS: CHERRY FLAVOR 60 ML BOTTLE PO PRN ×4 (00:53→22:42)
[2019-04-30] MEDS: VANCOMYCIN ORAL SOLUTION 250 MG/5 ML BOTTLE PO SCH ×5 (00:53→22:42)
[2019-04-30 05:16] LABS: Basophils # (A) 0.1 k/uL (0-0.2); Basophils % (A) 1 %; Eosinophils # (A) 0.3 k/uL (0-0.7); Eosinophils % (A) 5 %; HCT 26.1 % (39.0-53.0); HGB 8.5 gm/dL (13.0-17.5); Hypochromasia Marked; Lymphocytes # (A) 1.8 k/uL (1.0-4.8); Lymphocytes % (A) 24 %; MCH 26.9 pg (25.0-35.0); MCHC 32.5 g/dL (31.0-37.0); MCV 82.7 fL (80.0-100.0); Mean Platelet Volume 7.5; Monocytes # (A) 0.3 k/uL (0-1.0); Monocytes % (A) 5 %; Neutrophils # (A) 4.6 k/uL (1.3-7.7); Neutrophils % (A) 63 %; Platelet Count 298 k/uL (150-450); Poikilocytosis Moderate; RBC 3.16 m/uL (4.30-5.90); WBC 7.3 k/uL (3.8-10.6)
[2019-04-30 05:29] LABS: African American GFR (CKD) >90 (>60 ml/min/1.73 sqM); Anion Gap 8 mmol/L; Blood Urea Nitrogen 9 mg/dL (9-20); Calcium 8.5 mg/dL (8.4-10.2); Carbon Dioxide 22 mmol/L (22-30); Chloride 108 mmol/L (98-107); Glucose 96 mg/dL (74-99); Potassium 3.9 mmol/L (3.5-5.1); Sodium 138 mmol/L (137-145)
[2019-04-30] MEDS: CARVEDILOL 3.125 MG TAB PO SCH ×2 (06:47→18:01)
[2019-04-30] MEDS: levETIRAcetam 500 MG TAB PO SCH ×2 (06:47→18:01)
[2019-04-30] MEDS: PANTOPRAZOLE 40 MG/10 ML VIAL IVP SCH (08:54)
[2019-04-30] MEDS: ATORVASTATIN 40 MG TAB PO SCH (08:54)
[2019-04-30] MEDS: LISINOPRIL 20 MG TAB PO SCH (08:54)
--- NOTE | 2019-04-30 09:43 | P.PN ---
Subjective Progress Note Date: 04/30/19 CHIEF COMPLAINT: rectal bleeding HISTORY OF PRESENT ILLNESS: Patient examined at the bedside. Denies abdominal pain. Denies nausea or vomiting. Denies further bleeding from rectum. PHYSICAL EXAM: VITAL SIGNS: Reviewed. GENERAL: Well-developed in no acute distress. HEENT: No sclera icterus. Extraocular movements grossly intact. Moist buccal mucosa. Head is atraumatic, normocephalic. ABDOMEN: Soft. Nondistended. Nontender. NEUROLOGIC: Alert and oriented. Cranial nerves II through XII grossly intact. ASSESSMENT: 1. Acute lower GI bleed 2. Acute blood loss anemia 3. C. difficile colitis PLAN: NPO. Scheduled for EGD/colonoscopy today with GI. Await results. Monitor hemoglobin. Nurse practitioner note has been reviewed by physician. Signing provider agrees with the documented findings, assessment, and plan of care. Objective - Vital Signs Vital signs: Vital Signs Temp 98 F 04/30/19 08:00 Pulse 56 L 04/30/19 09:00 Resp 12 04/30/19 09:00 BP 133/62 04/30/19 09:00 Pulse Ox 99 04/30/19 09:00 Intake & Output 04/29/19 04/30/19 04/30/19 18:59 06:59 18:59 Intake Total 3500 1000 240 Output Total 703 800 0 Balance 2797 200 240 Weight 94.2 kg Intake: IV 1000 Sodium Chloride 0.9% 1, 1000 000 ml @ 100 mls/hr IV . Q10H [facility] Rx#:[id number] Oral 2500 1000 240 Output: Urine 700 800 0 Stool 3 Other: Voiding Method Urinal Urinal # Voids 2 1 # Bowel Movements 1 1 - Labs CBC & Chem 7: 04/30/19 05:05 04/30/19 05:05 Labs: Abnormal Lab Results - Last 24 Hours (Table) 04/30/19 04/30/19 Range/Units 05:05 05:05 RBC 3.16 L (4.30-5.90) m/uL Hgb 8.5 L (13.0-17.5) gm/dL Hct 26.1 L (39.0-53.0) % Chloride 108 H (98-107) mmol/L
--- NOTE | 2019-04-30 09:59 | P.PN ---
Subjective Progress Note Date: 04/30/19 Principal diagnosis: This is a 64-year-old male who was admitted with GI bleed that is being closely monitored. Patient states that he was having bright red blood with bowel moveme nts and last episode was yesterday. Patient states that he is currently on aspirin and Plavix for CVA with right side upper and lower involvement that is still currently active. Patient denies any shortness of breath, chest pain, palpitations at this time. Patient is currently still nothing by mouth. Patient denies any abdominal pain just having some mild cramping at times. Patient denies any nausea or vomiting at this time patient is afebrile. Awaiting gastric consult at this time. 04/28/2019 This is a 64-year-old male who was admitted with acute GI bleed that is being closely monitored. Patient did have a lot of loose bowel movements last night and some this morning that did not have any blood in them. Around 11 AM today the patient experienced 2 loose bowel movements with large amounts of bright red blood noted. Patient's stool culture also tested positive for C. diff and is currently being monitored with GI. Patient is starting oral vanco today. Currently we are still holding his aspirin and Plavix as he is active bleeding rectally again. Patient is currently not a candidate for a scope with GI due to the C. diff until the infection is cleared. Patient denies having any nausea, or vomiting and denies any stomach pain at this time. Patient is afebrile. Repeat CBC done this afternoon shows a hemoglobin of 9.2. Per GI they will be ordering a tagged RBC scan as he is still actively bleeding. Patient is currently on a clear liquid diet and tolerating well. 04/29/19 Overnight patient was moved from his previous floor to the ICU for closer monitoring due to an increase in the amount of blood in the stool. Patient is currently at the side of the bed getting up with assistance due to his history of CVA with right side deficits to the bedside commode. This will be the second loose bowel movement with patricia red blood noted in a small amount. Hemoglobin is currently stable at 8.8. Patient denies any shortness of breath, chest pain, palpitations, nausea, or vomiting at this time. Patient denies any abdominal pain and is afebrile. Patient is NPO except ice chips at this time and is scheduled to go for an EGD and colonoscopy in the morning per GI. Patient was positive for cdiff and is being treated with oral vancomycin. Patient will be monitored closely of vitals and labs. 04/30/2019 Patient is sitting up in bed in no acute distress. Patient did have a clear liquid diet this morning and tolerated well. Patient did complete bowel prep with GoLYTELY overnight and is scheduled for an EGD and colonoscopy this morning with GI. Patient denies any abdominal pain, nausea, vomiting. Patient states that his bowel movements are still liquid and almost clear with no new bright red blood noted at this time. Patient remains afebrile. Patient denies any chest pain, shortness of breath, or palpitations at this time. Anticoagulation is still being held until after the procedures this afternoon. Will continue to monitor closely. Vital signs are stable. Current hemoglobin is 8.5. Patient is hemodynamically stable. Patient is going to have a midline placed today due to poor IV access. Patient refusing all IV access in the right side as he has a history of CVA with deficits on the right. Objective - Vital Signs Vital signs: Vital Signs Temp 98 F 04/30/19 08:00 Pulse 56 L 04/30/19 09:00 Resp 12 04/30/19 09:00 BP 133/62 04/30/19 09:00 Pulse Ox 99 04/30/19 09:00 Intake & Output 04/29/19 04/30/19 04/30/19 18:59 06:59 18:59 Intake Total 3500 1000 240 Output Total 703 800 0 Balance 2797 200 240 Weight 94.2 kg Intake: IV 1000 Sodium Chloride 0.9% 1, 1000 000 ml @ 100 mls/hr IV . Q10H [facility] Rx#:[id number] Oral 2500 1000 240 Output: Urine 700 800 0 Stool 3 Other: Voiding Method Urinal Urinal # Voids 2 1 # Bowel Movements 1 1 - Exam Gen: This is a 64-year-old male sitting up in bed in no acute distress. Vital signs are 98F temp, pulse is 56, respirations 12 non-labored, blood pressure 133/62, pulse ox is 99% on room air HEENT: Head is atraumatic, normocephalic. Pupils equal, round. Sclerae is anicteric. NECK: Supple. No JVD. No lymphadenopathy. No thyromegaly. LUNGS: Clear to auscultation. No wheezes or rhonchi. No intercostal retractions. HEART: Regular rate and rhythm. No murmur. ABDOMEN: Soft. Bowel sounds are present. No masses. No tenderness. EXTREMITIES: No pedal edema. No calf tenderness. NEUROLOGICAL: Patient is awake, alert and oriented x3. Cranial nerves 2 through 12 are grossly intact. Right side weakness of the upper and lower extremities from history of CVA. - Labs CBC & Chem 7: 04/30/19 05:05 04/30/19 05:05 Labs: Abnormal Lab Results - Last 24 Hours (Table) 04/30/19 04/30/19 Range/Units 05:05 05:05 RBC 3.16 L (4.30-5.90) m/uL Hgb 8.5 L (13.0-17.5) gm/dL Hct 26.1 L (39.0-53.0) % Chloride 108 H (98-107) mmol/L Assessment and Plan Assessment: Acute lower GI bleed: Either hemorrhoidal or diverticular. Although patient is positive for c diff, GI will be performing an EGD and colonoscopy in the morning. Aspirin and Plavix being held at this time per GI recommendations. tagged RBC scan showed blood in the rectum. Bowel prep with GoLYTELY was done patient tolerated well. 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 Will continue to monitor. Seizure disorder Coronary artery disease with cardiac catheterization and stent to the RCA in February 2019 GI prophylaxis Clostridium difficile currently being treated with oral vancomycin. Recommendations and discussion: Recommend to continue current medications, we'll continue to hold anticoagulants due to colonoscopy and EGD this afternoon. Continue symptomatic treatment. Patient's hemoglobin is 8.3 and stable. He will be closely monitored. We'll continue to monitor labs and vital signs. Guarded prognosis. Further r ecommendations to follow. Plan is for an EGD and colonoscopy today. Will await GI report.
--- NOTE | 2019-04-30 10:24 | PN ---
PROGRESS NOTE DATE OF SERVICE: 04/30/2019 This is a 64-year-old male who I saw yesterday in consultation. He was admitted with a diagnosis of GI bleed. The GI bleed had been going on for about 5 months prior to admission. He did in fact have a tagged red blood cell study which showed bleeding in the rectal area. Today, the patient is going for an EGD and a colonoscopy. Today's hemoglobin is 8.5. Yesterday, hemoglobin 8.8. In addition, he has a history of chronic anemia, hypertension, hyperlipidemia, previous left CVA with right-sided weakness, CAD with previous stenting x2, history of seizure disorder, and unilateral orchiectomy. The patient is not receiving any supplemental oxygen. He is not receiving any IV fluids. Currently, he is doing reasonably well. Thus far, the patient has received 2 units of PRBCs. He is not having any pain. No respiratory issues. No hemodynamic issues. Vital signs good, temperature 98, heart rate 56, respiratory rate 12, blood pressure 133/62 mean 85 and room air saturation 99%. Appears in no acute distress. HEENT: Examination is grossly unremarkable. No supplemental oxygen. Neck is supple. Full range of motion. No adenopathy or thyromegaly. Neck veins are flat. CARDIOVASCULAR: Examination reveals regular rhythm and rate. Heart rate about 60 beats per minute. S1, S2 normal. No S3, S4, or murmur. LUNGS: Reveal relatively clear breath sounds. No wheezes or rhonchi. ABDOMEN: Soft. Bowel sounds are heard. EXTREMITIES: Intact. No cyanosis, clubbing, or edema. SKIN: Without rash. NEUROLOGIC: Examination is brief but nonfocal. LABS: Reviewed. White count 7.3, hemoglobin 8.5, hematocrit 26.1, platelet count normal. Sodium and potassium normal. Chloride is 108, CO2 is 22, anion gap is normal. BUN and creatinine were 9 and 0.91 respectively. Calcium 8.5. No chest x-ray or other studies have been done. ASSESSMENT: 1. Lower gastrointestinal bleed in the area of the rectum, seen on tagged red blood cell study. 2. History of chronic anemia and chronic gastrointestinal bleeding. 3. History of hypertension. 4. History of hyperlipidemia. 5. Previous history of left cerebrovascular accident with right-sided weakness, right upper extremity greater than right lower extremity. 6. History of coronary artery disease with previous stenting of the right coronary artery x2. 7. History of seizure disorder. 8. History of unilateral orchiectomy. PLAN: The patient is doing well. He will be going down for an EGD and colonoscopy today. His hemoglobin is stable at 8.5. He has received 2 units of blood. No coagulopathy. I told the nurses that if everything looks good on the EGD and colonoscopy, the patient could go to the general medical floor after the procedure. If there is an abnormality that they find that they are concerned about, the patient could come back here to the ICU. Additional recommendations and suggestions are forthcoming. MMODL / IJN: [id number] /
[2019-04-30] MEDS ORDERED: ePHEDrine SULFATE/0.9% NACL/PF 50 MG/5 ML SYRINGE IV ONE (13:45)
[2019-04-30] MEDS ORDERED: LIDOCAINE 1% INJ 10MG/ML (20 ML MDV) ONE (13:45)
[2019-04-30] MEDS ORDERED: PROPOFOL 10 MG/ML 20 ML VIAL IV ONE (13:45)
[2019-04-30] MEDS ORDERED: IV FLUID CONTINUATION 1,000 ML IV ONE (13:58)
--- NOTE | 2019-04-30 14:57 | P.PCN ---
Date of Procedure: 04/30/19 Description of Procedure: Brief history: 64-year-old male with prior history of CVA approximately 20 years ago with residual right-sided weakness who presented to the hospital with complaints of bright red blood per rectum. He reports that he has been seeing blood with bowel movements over the past 6 months and believed it was secondary to hemorrhoids. Prior to this the patient does not recall episodes of bright red blood per rectum. He denies any abdominal pain with the episodes. He reports that he has been having approximately 2-3 bowel movements a day with bright red blood noted with the stool. The patient feels he amount of blood has increased over the 2 or 3 days prior to admission. The patient has been maintained on Plavix therapy secondary to his history of CVA. He is denying any NSAID use. No prior EGD or colonoscopy reported. Hemoglobin 8 on presentation subsequently fell to 7.4 and then 7.0, the patient was transfused and currently the hemoglobin is stable over a period however he continued to have some leading per rectum and decision was made for EGD and colonoscopy for further evaluation. Procedure performed: Esophagogastroduodenoscopy with biopsy Colonoscopy with polypectomy Estimated blood loss: Minimal. Preoperative diagnosis: Anemia acute blood loss, hematochezia, no prior colonoscopy Anesthesia: MAC Procedure: After informed consent was obtained from the patient was brought into the endoscopy unit and IV sedation was administered by anesthesia under continuous monitoring. Initially upper endoscopy was done. The Olympus GF 190 video endoscope was inserted inserted into the mouth and esophagus intubated without any difficulty and was gradually advanced into the stomach and duodenum and carefully examined. The bulb and second part of the duodenum appeared normal, with biopsies taken. The scope was then withdrawn into the stomach adequately insufflated with air and upon careful examination the antrum and body, cardia and fundus appeared normal, with only some mild scattered gastritis noted in the antrum and body which was biopsied. The scope was then withdrawn into the esophagus. The GE junction was located at 38 cm to the incisors. It appeared regular with no erythema erosions or ulcerations. Rest of the esophagus appeared normal. Patient tolerated the procedure well. At this time the patient continued to remain sedation. Initial digital rectal examination was normal. Olympus CF 190 video colonoscope was then inserted into the rectum and gradually advanced to the cecum without any difficulty. Careful examination was performed as the scope was gradually being withdrawn. The prep was good. The cecum, ascending colon, transverse colon, descending colon, sigmoid colon and rectum appeared normal. 4 mm sessile descending colon polyp removed with cold snare polypectomy. 3 mm sigmoid colon polyp removed with cold forceps. Mild scattered sigmoid diverticulosis noted. Internal and external hemorrhoids. Retroflexion was performed in the rectum and no lesions were noted. Patient tolerated the procedure well. Impression: 1. Mild gastritis antrum and body, biopsied. Duodenal biopsies. No evidence of active bleeding or old blood noted. 2. Cold snare polypectomy of descending colon polyp. Cold forcep polypectomy of sigmoid polyp. Mild diverticulosis. Hemorrhoids. No evidence of old blood or active bleeding noted. Recommendations: Findings of this examination were discussed with the patient as well as his [id number]. Okay to start low fiber diet. Continue to monitor hemoglobin and transfuse as needed. No plans for further endoscopic evaluation at this time. Can change Protonix to daily. Local hemorrhoidal care if further bleeding.
[2019-04-30 21:45] LABS: Basophils % (A) 1 %; Eosinophils # (A) 0.3 k/uL (0-0.7); Eosinophils % (A) 4 %; HCT 27.5 % (39.0-53.0); HGB 8.5 gm/dL (13.0-17.5); Hypochromasia Moderate; Lymphocytes # (A) 1.7 k/uL (1.0-4.8); Lymphocytes % (A) 23 %; MCH 25.6 pg (25.0-35.0); MCHC 30.8 g/dL (31.0-37.0); MCV 83.2 fL (80.0-100.0); Mean Platelet Volume 7.1; Monocytes # (A) 0.4 k/uL (0-1.0); Monocytes % (A) 5 %; Neutrophils # (A) 4.7 k/uL (1.3-7.7); Neutrophils % (A) 64 %; Platelet Count 332 k/uL (150-450); Poikilocytosis Slight; RDW 15.3 % (11.5-15.5); WBC 7.3 k/uL (3.8-10.6)
[2019-04-30] MEDS: CHOLECALCIFEROL 1,000 UNIT TAB PO SCH (21:50)
[2019-04-30] MEDS: MAGNESIUM OXIDE 400 MG TAB PO SCH (21:50)
[2019-05-01] MEDS: VANCOMYCIN ORAL SOLUTION 250 MG/5 ML BOTTLE PO SCH ×4 (05:43→23:37)
[2019-05-01] MEDS: CHERRY FLAVOR 60 ML BOTTLE PO PRN ×3 (05:43→23:37)
[2019-05-01 06:46] LABS: Basophils # (A) 0.1 k/uL (0-0.2); Basophils % (A) 1 %; Eosinophils # (A) 0.3 k/uL (0-0.7); Eosinophils % (A) 5 %; HCT 28.4 % (39.0-53.0); HGB 9.3 gm/dL (13.0-17.5); Hypochromasia Marked; Lymphocytes # (A) 1.7 k/uL (1.0-4.8); Lymphocytes % (A) 22 %; MCHC 32.8 g/dL (31.0-37.0); MCV 82.3 fL (80.0-100.0); Mean Platelet Volume 7.8; Monocytes # (A) 0.4 k/uL (0-1.0); Monocytes % (A) 5 %; Neutrophils # (A) 5.1 k/uL (1.3-7.7); Neutrophils % (A) 66 %; Platelet Count 353 k/uL (150-450); Poikilocytosis Moderate; RBC 3.45 m/uL (4.30-5.90); WBC 7.6 k/uL (3.8-10.6)
[2019-05-01 06:54] LABS: Potassium 4.1 mmol/L (3.5-5.1)
[2019-05-01] MEDS: levETIRAcetam 500 MG TAB PO SCH ×2 (07:24→17:45)
[2019-05-01] MEDS: CARVEDILOL 3.125 MG TAB PO SCH ×2 (07:24→17:45)
[2019-05-01] MEDS: PANTOPRAZOLE 40 MG/10 ML VIAL IVP SCH (07:24)
[2019-05-01] MEDS: LISINOPRIL 20 MG TAB PO SCH (07:24)
[2019-05-01] MEDS: ATORVASTATIN 40 MG TAB PO SCH (07:24)
[2019-05-01] MEDS ORDERED: PANTOPRAZOLE 40 MG TABLET PO SCH (07:30)
[2019-05-01 12:06] VITALS: BMI 32.5
[2019-05-01 13:06] LABS: Basophils # (A) 0.1 k/uL (0-0.2); Basophils % (A) 1 %; Eosinophils # (A) 0.4 k/uL (0-0.7); Eosinophils % (A) 4 %; HCT 30.1 % (39.0-53.0); HGB 9.3 gm/dL (13.0-17.5); Hypochromasia Moderate; Lymphocytes # (A) 1.5 k/uL (1.0-4.8); Lymphocytes % (A) 19 %; MCH 25.7 pg (25.0-35.0); MCHC 30.8 g/dL (31.0-37.0); MCV 83.4 fL (80.0-100.0); Mean Platelet Volume 6.6; Monocytes # (A) 0.5 k/uL (0-1.0); Monocytes % (A) 6 %; Neutrophils # (A) 5.3 k/uL (1.3-7.7); Neutrophils % (A) 67 %; Platelet Count 357 k/uL (150-450); Poikilocytosis Slight; RBC 3.61 m/uL (4.30-5.90); RDW 15.4 % (11.5-15.5); WBC 7.9 k/uL (3.8-10.6)
--- NOTE | 2019-05-01 14:04 | P.PN ---
Subjective Progress Note Date: 05/01/19 CHIEF COMPLAINT: rectal bleeding HISTORY OF PRESENT ILLNESS: Patient examined at the bedside. Denies abdominal pain. Denies nausea or vomiting. Reports episode of rectal bleeding this morning. Hemoglobin has improved from 8.5-9.3 today. PHYSICAL EXAM: VITAL SIGNS: Reviewed. GENERAL: Well-developed in no acute distress. HEENT: No sclera icterus. Extraocular movements grossly intact. Moist buccal mucosa. Head is atraumatic, normocephalic. ABDOMEN: Soft. Nondistended. Nontender. NEUROLOGIC: Alert and oriented. Cranial nerves II through XII grossly intact. ASSESSMENT: 1. Acute lower GI bleed 2. Acute blood loss anemia 3. C. difficile colitis PLAN: Continue diet as tolerated Monitor hemoglobin No surgical intervention recommended at this time. Nurse practitioner note has been reviewed by physician. Signing provider agrees with the documented findings, assessment, and plan of care. Objective - Vital Signs Vital signs: Vital Signs Temp 97.9 F 05/01/19 13:17 Pulse 62 05/01/19 13:17 Resp 18 05/01/19 13:17 BP 135/79 05/01/19 13:17 Pulse Ox 97 05/01/19 13:17 Intake & Output 04/30/19 05/01/19 05/01/19 18:59 06:59 18:59 Intake Total 240 200 Output Total 856 600 100 Balance -616 -400 -100 Weight 94.2 kg Intake: Oral 240 200 Output: Urine 850 100 Stool 6 400 Other 200 Other: Voiding Method Urinal Urinal Urinal # Voids 1 2 2 # Bowel Movements 0 1 0 - Labs CBC & Chem 7: 05/01/19 12:10 05/01/19 06:29 Labs: Abnormal Lab Results - Last 24 Hours (Table) 04/30/19 05/01/19 05/01/19 Range/Units 21:33 06:29 06:29 RBC 3.30 L 3.45 L (4.30-5.90) m/uL Hgb 8.5 L 9.3 L (13.0-17.5) gm/dL Hct 27.5 L 28.4 L (39.0-53.0) % MCHC 30.8 L (31.0-37.0) g/dL Glucose 111 H (74-99) mg/dL 05/01/19 Range/Units 12:10 RBC 3.61 L (4.30-5.90) m/uL Hgb 9.3 L (13.0-17.5) gm/dL Hct 30.1 L (39.0-53.0) % MCHC 30.8 L (31.0-37.0) g/dL Glucose (74-99) mg/dL
--- NOTE | 2019-05-01 15:53 | P.DS ---
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 want consulting provider notified?: Already Contacted 04/29/19 09:02 Consult Physician Routine Consulting Provider: Shane Irwin Consult Reason/Comments: rectal bleeding Do you want consulting provider notified?: Yes Primary care physician: Devora Varma [facility] Course: Final diagnosis Acute lower GI bleed History of CVA with residual weakness of the right upper and lower extremities Lipidemia Hypertension Seizure disorder Coronary artery disease with cardiac catheterization and stent placement in the RCA in February 2019 Clostridium difficile EGD and colonoscopy performed with descending colon polyp removal as well as sigmoid polyp removal: Biopsies pending Mild diverticulosis Internal and external hemorrhoids Discharge disposition Patient will be discharged in a stable condition with guarded prognosis to [facility] for rehabilitation. GI is following closely. Patient will follow-up with GI. History of present illness Patient was admitted to [facility] with an acute lower GI bleed as he was having multiple bowel movements with bright red blood noted. Patient was also found to have C. diff and is being treated with oral vancomycin. Patient underwent an EGD and colonoscopy due to continuing episodes of bloody bowel movements. Polyps within the descending colon and sigmoid were removed and biopsies were sent to pathology there was also noted in the report that the patient does have internal and external hemorrhoids, and mild diverticulosis. Patient is tolerating diet and states that he is still having some blood noted in the stool but it is dark with some clots. Patient is hemodynamically stable. Current hemoglobin is 9.3. Patient was restarted on aspirin and Plavix due to recent stent placement in February 2019. Discussed with GI and patient is stable for discharge and to follow-up this week. On exam vital signs are stable patient is sitting up in recliner in no acute distress. Cardio S1 and S2 are normal. Respiratory system is clear to auscultation. Abdomen is soft and non-tender. Nervous system shows no new focal deficits, right side upper and lower extremity residual deficits from a previous history of CVA is noted. Gait is steady with a walker and standby assistance. Please refer to medication reconciliation sheet for list of medications Patient Condition at Discharge: Fair Plan - Discharge Summary Discharge Rx Participant: No New Discharge Prescriptions: New Vancomycin Oral Solution 125 mg PO Q6HR ml Continue Potassium Chloride ER [K-Dur 20] 20 meq PO DAILY levETIRAcetam [Keppra] 500 mg PO BID@0700,1800 Lisinopril 40 mg PO DAILY Clopidogrel [Plavix] 75 mg PO HS Cholecalciferol [Vitamin D3 (25 Mcg = 1000 Iu)] 2,000 unit PO HS@2100 Bisacodyl 10 mg RECTAL DAILY PRN PRN Reason: Constipation Carvedilol [Coreg] 3.125 mg PO BID Acetaminophen Tab [Tylenol] 650 mg PO Q4H PRN PRN Reason: Pain Ascorbic Acid [Vitamin C] 500 mg PO HS@2100 Aspirin [Children's Aspirin] 81 mg PO HS@2100 Magnesium Oxide [Mag-Ox] 400 mg PO HS Geritussin Dm 10 ml PO Q6H PRN PRN Reason: Cough Major-Prep Henrroid Oint 1 applic TOPICAL DAILY PRN PRN Reason: Hemorrhoids Atorvastatin [Lipitor] 40 mg PO DAILY Discharge Medication List Acetaminophen Tab [Tylenol] 650 mg PO Q4H PRN 01/06/19 [History] Ascorbic Acid [Vitamin C] 500 mg PO HS@2100 01/06/19 [History] Aspirin [Children's Aspirin] 81 mg PO HS@2100 01/06/19 [History] Bisacodyl 10 mg RECTAL DAILY PRN 01/06/19 [History] Carvedilol [Coreg] 3.125 mg PO BID 01/06/19 [History] Cholecalciferol [Vitamin D3 (25 Mcg = 1000 Iu)] 2,000 unit PO HS@2100 01/06/19 [History] Clopidogrel [Plavix] 75 mg PO HS 01/06/19 [History] Lisinopril 40 mg PO DAILY 01/06/19 [History] Potassium Chloride ER [K-Dur 20] 20 meq PO DAILY 01/06/19 [History] levETIRAcetam [Keppra] 500 mg PO BID@0700,1800 01/06/19 [History] Magnesium Oxide [Mag-Ox] 400 mg PO HS 02/18/19 [History] Atorvastatin [Lipitor] 40 mg PO DAILY 04/26/19 [History] Geritussin Dm 10 ml PO Q6H PRN 04/26/19 [History] Major-Prep Henrroid Oint 1 applic TOPICAL DAILY PRN 04/26/19 [History] Vancomycin Oral Solution 125 mg PO Q6HR ml 05/01/19 [Rx] Follow up Appointment(s)/Referral(s): Devora Varma MD [Primary Care Provider] - 1-2 days Sanjeev Orosco MD [STAFF PHYSICIAN] - 06/01/19 1:30 pm Activity/Diet/Wound Care/Special Instructions: Patient to be transferred to [facility] Activity as tolerated Continue current diet Discharge Disposition: TRANSFER TO SNF/ECF
--- NOTE | 2019-05-01 16:00 | P.PN ---
Subjective Progress Note Date: 05/01/19 Principal diagnosis: This is a 64-year-old male who was admitted with GI bleed that is being closely monitored. Patient states that he was having bright red blood with bowel moveme nts and last episode was yesterday. Patient states that he is currently on aspirin and Plavix for CVA with right side upper and lower involvement that is still currently active. Patient denies any shortness of breath, chest pain, palpitations at this time. Patient is currently still nothing by mouth. Patient denies any abdominal pain just having some mild cramping at times. Patient denies any nausea or vomiting at this time patient is afebrile. Awaiting gastric consult at this time. 04/28/2019 This is a 64-year-old male who was admitted with acute GI bleed that is being closely monitored. Patient did have a lot of loose bowel movements last night and some this morning that did not have any blood in them. Around 11 AM today the patient experienced 2 loose bowel movements with large amounts of bright red blood noted. Patient's stool culture also tested positive for C. diff and is currently being monitored with GI. Patient is starting oral vanco today. Currently we are still holding his aspirin and Plavix as he is active bleeding rectally again. Patient is currently not a candidate for a scope with GI due to the C. diff until the infection is cleared. Patient denies having any nausea, or vomiting and denies any stomach pain at this time. Patient is afebrile. Repeat CBC done this afternoon shows a hemoglobin of 9.2. Per GI they will be ordering a tagged RBC scan as he is still actively bleeding. Patient is currently on a clear liquid diet and tolerating well. 04/29/19 Overnight patient was moved from his previous floor to the ICU for closer monitoring due to an increase in the amount of blood in the stool. Patient is currently at the side of the bed getting up with assistance due to his history of CVA with right side deficits to the bedside commode. This will be the second loose bowel movement with patricia red blood noted in a small amount. Hemoglobin is currently stable at 8.8. Patient denies any shortness of breath, chest pain, palpitations, nausea, or vomiting at this time. Patient denies any abdominal pain and is afebrile. Patient is NPO except ice chips at this time and is scheduled to go for an EGD and colonoscopy in the morning per GI. Patient was positive for cdiff and is being treated with oral vancomycin. Patient will be monitored closely of vitals and labs. 04/30/2019 Patient is sitting up in bed in no acute distress. Patient did have a clear liquid diet this morning and tolerated well. Patient did complete bowel prep with GoLYTELY overnight and is scheduled for an EGD and colonoscopy this morning with GI. Patient denies any abdominal pain, nausea, vomiting. Patient states that his bowel movements are still liquid and almost clear with no new bright red blood noted at this time. Patient remains afebrile. Patient denies any chest pain, shortness of breath, or palpitations at this time. Anticoagulation is still being held until after the procedures this afternoon. Will continue to monitor closely. Vital signs are stable. Current hemoglobin is 8.5. Patient is hemodynamically stable. Patient is going to have a midline placed today due to poor IV access. Patient refusing all IV access in the right side as he has a history of CVA with deficits on the right. 05/01/2019 Patient is sitting up in recliner in no acute distress. Patient states he is having some blood noted in his bowel movements that are dark with clots noted. Hemoglobin is stable at this time at 9.3. Patient is hemodynamically stable. Patient denies any abdominal pain, nausea, or vomiting at this time. Patient is afebrile. Vital signs are stable. Patient currently denies any chest pain, shortness of breath, or palpitations at this time. Anticoagulation of aspirin and Plavix will be resumed this evening. We will continue to monitor closely. Patient is awaiting for rehab placement at [facility] and is scheduled to go tomorrow morning. Objective - Vital Signs Vital signs: Vital Signs Temp 97.9 F 05/01/19 13:17 Pulse 64 05/01/19 15:18 Resp 18 05/01/19 13:17 BP 138/81 05/01/19 15:18 Pulse Ox 97 05/01/19 13:17 Intake & Output 04/30/19 05/01/19 05/01/19 18:59 06:59 18:59 Intake Total 240 200 Output Total 856 600 100 Balance -616 -400 -100 Weight 94.2 kg Intake: Oral 240 200 Output: Urine 850 100 Stool 6 400 Other 200 Other: Voiding Method Urinal Urinal Urinal # Voids 1 2 2 # Bowel Movements 0 1 1 - Exam Gen: This is a 64-year-old male sitting up in bed in no acute distress. Vital signs are stable HEENT: Head is atraumatic, normocephalic. Pupils equal, round. Sclerae is anicteric. NECK: Supple. No JVD. No lymphadenopathy. No thyromegaly. LUNGS: Clear to auscultation. No wheezes or rhonchi. No intercostal retractions. HEART: Regular rate and rhythm. No murmur. ABDOMEN: Soft. Bowel sounds are present. No masses. No tenderness. EXTREMITIES: No pedal edema. No calf tenderness. NEUROLOGICAL: Patient is awake, alert and oriented x3. Cranial nerves 2 through 12 are grossly intact. Right side weakness of the upper and lower extremities from history of CVA. - Labs CBC & Chem 7: 05/01/19 12:10 05/01/19 06:29 Labs: Abnormal Lab Results - Last 24 Hours (Table) 04/30/19 05/01/19 05/01/19 Range/Units 21:33 06:29 06:29 RBC 3.30 L 3.45 L (4.30-5.90) m/uL Hgb 8.5 L 9.3 L (13.0-17.5) gm/dL Hct 27.5 L 28.4 L (39.0-53.0) % MCHC 30.8 L (31.0-37.0) g/dL Glucose 111 H (74-99) mg/dL 05/01/19 Range/Units 12:10 RBC 3.61 L (4.30-5.90) m/uL Hgb 9.3 L (13.0-17.5) gm/dL Hct 30.1 L (39.0-53.0) % MCHC 30.8 L (31.0-37.0) g/dL Glucose (74-99) mg/dL Assessment and Plan Assessment: Acute lower GI bleed: Either hemorrhoidal or diverticular. EGD and colonoscopy were done yesterday. Biopsies are pending. Aspirin and Plavix being resumed this evening. Patient is tolerating a fiber diet. 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 Will continue to monitor. Seizure disorder Coronary artery disease with cardiac catheterization and stent to the RCA in February 2019 GI prophylaxis Clostridium difficile currently being treated with oral vancomycin. Recommendations and discussion: Recommend to continue current medications, will resume anticoagulants this evening. Continue symptomatic treatment. Patient's hemoglobin is 9.3 and stable. He will be closely monitored. We'll continue to monitor labs and vital signs. Guarded prognosis. Further recommendations to follow. Probable discharge in 24 hours to [facility]. Arrangements have been made. Case management is following.
[2019-05-01 18:15] LABS: Basophils % (A) 1 %; Eosinophils # (A) 0.4 k/uL (0-0.7); Eosinophils % (A) 4 %; HCT 29.6 % (39.0-53.0); HGB 9.1 gm/dL (13.0-17.5); Hypochromasia Marked; Lymphocytes % (A) 24 %; MCHC 30.7 g/dL (31.0-37.0); MCV 84.7 fL (80.0-100.0); Mean Platelet Volume 7.2; Monocytes # (A) 0.5 k/uL (0-1.0); Monocytes % (A) 5 %; Neutrophils # (A) 5.4 k/uL (1.3-7.7); Neutrophils % (A) 64 %; Platelet Count 348 k/uL (150-450); Poikilocytosis Slight; RBC 3.49 m/uL (4.30-5.90); RDW 15.3 % (11.5-15.5); WBC 8.4 k/uL (3.8-10.6)
[2019-05-01] MEDS: CHOLECALCIFEROL 1,000 UNIT TAB PO SCH (21:01)
[2019-05-01] MEDS: ASPIRIN 81 MG PO SCH (21:01)
[2019-05-01] MEDS: CLOPIDOGREL 75 MG TAB PO SCH (21:02)
[2019-05-01] MEDS: MAGNESIUM OXIDE 400 MG TAB PO SCH (21:02)
[2019-05-02] MEDS: CHERRY FLAVOR 60 ML BOTTLE PO PRN ×3 (05:18→17:09)
[2019-05-02] MEDS: VANCOMYCIN ORAL SOLUTION 250 MG/5 ML BOTTLE PO SCH ×3 (05:18→17:10)
[2019-05-02] MEDS: ATORVASTATIN 40 MG TAB PO SCH (07:12)
[2019-05-02] MEDS: levETIRAcetam 500 MG TAB PO SCH ×2 (07:12→17:10)
[2019-05-02] MEDS: PANTOPRAZOLE 40 MG/10 ML VIAL IVP SCH (07:12)
[2019-05-02] MEDS: LISINOPRIL 20 MG TAB PO SCH (07:12)
[2019-05-02] MEDS: CARVEDILOL 3.125 MG TAB PO SCH ×2 (07:13→17:10)
[2019-05-02 09:02] LABS: Basophils # (A) 0.1 k/uL (0-0.2); Basophils % (A) 1 %; Eosinophils # (A) 0.3 k/uL (0-0.7); Eosinophils % (A) 4 %; HCT 26.4 % (39.0-53.0); HGB 8.6 gm/dL (13.0-17.5); Hypochromasia Marked; Lymphocytes # (A) 1.4 k/uL (1.0-4.8); Lymphocytes % (A) 18 %; MCHC 32.4 g/dL (31.0-37.0); MCV 83.5 fL (80.0-100.0); Mean Platelet Volume 7.6; Monocytes # (A) 0.5 k/uL (0-1.0); Monocytes % (A) 6 %; Neutrophils # (A) 5.3 k/uL (1.3-7.7); Neutrophils % (A) 69 %; Platelet Count 319 k/uL (150-450); Poikilocytosis Moderate; RBC 3.17 m/uL (4.30-5.90); RDW 14.7 % (11.5-15.5); WBC 7.7 k/uL (3.8-10.6)
--- NOTE | 2019-05-02 10:40 | P.PN ---
Progress Note - Text Progress Note Date: 05/02/19 The patient's hemoglobin is stable. Hemoglobin is 8.6. He has had no further GI bleed. On exam his vital signs are stable. His abdomen soft. Resolving C. diff colitis. There is no further evidence of GI bleed. Patient will be discharged home per medicine.
--- NOTE | 2019-05-02 14:08 | P.DS ---
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 I did see and evaluate the patient PHYSICAL EXAMINATION: GENERAL: The patient is alert and oriented x3, not in any acute distress. Well developed, well nourished. HEENT: Pupils are round and equally reacting to light. EOMI. No scleral icterus. No conjunctival pallor. Normocephalic, atraumatic. No pharyngeal erythema. No thyromegaly. CARDIOVASCULAR: S1 and S2 present. No murmurs, rubs, or gallops. PULMONARY: Chest is clear to auscultation, no wheezing or crackles. ABDOMEN: Soft, nontender, nondistended, normoactive bowel sounds. No palpable organomegaly. MUSCULOSKELETAL: No joint swelling or deformity. EXTREMITIES: No cyanosis, clubbing, or pedal edema. NEUROLOGICAL: Gross neurological examination did not reveal any focal deficits. SKIN: No rashes. Patient Condition at Discharge: Fair Plan - Discharge Summary Discharge Rx Participant: No New Discharge Prescriptions: New Vancomycin Oral Solution 125 mg PO Q6HR ml Continue Potassium Chloride ER [K-Dur 20] 20 meq PO DAILY levETIRAcetam [Keppra] 500 mg PO BID@0700,1800 Lisinopril 40 mg PO DAILY Clopidogrel [Plavix] 75 mg PO HS Cholecalciferol [Vitamin D3 (25 Mcg = 1000 Iu)] 2,000 unit PO HS@2100 Bisacodyl 10 mg RECTAL DAILY PRN PRN Reason: Constipation Carvedilol [Coreg] 3.125 mg PO BID Acetaminophen Tab [Tylenol] 650 mg PO Q4H PRN PRN Reason: Pain Ascorbic Acid [Vitamin C] 500 mg PO HS@2100 Aspirin [Children's Aspirin] 81 mg PO HS@2100 Magnesium Oxide [Mag-Ox] 400 mg PO HS Geritussin Dm 10 ml PO Q6H PRN PRN Reason: Cough Major-Prep Henrroid Oint 1 applic TOPICAL DAILY PRN PRN Reason: Hemorrhoids Atorvastatin [Lipitor] 40 mg PO DAILY Discharge Medication List Acetaminophen Tab [Tylenol] 650 mg PO Q4H PRN 01/06/19 [History] Ascorbic Acid [Vitamin C] 500 mg PO HS@2100 01/06/19 [History] Aspirin [Children's Aspirin] 81 mg PO HS@2100 01/06/19 [History] Bisacodyl 10 mg RECTAL DAILY PRN 01/06/19 [History] Carvedilol [Coreg] 3.125 mg PO BID 01/06/19 [History] Cholecalciferol [Vitamin D3 (25 Mcg = 1000 Iu)] 2,000 unit PO HS@2100 01/06/19 [History] Clopidogrel [Plavix] 75 mg PO HS 01/06/19 [History] Lisinopril 40 mg PO DAILY 01/06/19 [History] Potassium Chloride ER [K-Dur 20] 20 meq PO DAILY 01/06/19 [History] levETIRAcetam [Keppra] 500 mg PO BID@0700,1800 01/06/19 [History] Magnesium Oxide [Mag-Ox] 400 mg PO HS 02/18/19 [History] Atorvastatin [Lipitor] 40 mg PO DAILY 04/26/19 [History] Geritussin Dm 10 ml PO Q6H PRN 04/26/19 [History] Major-Prep Henrroid Oint 1 applic TOPICAL DAILY PRN 04/26/19 [History] Vancomycin Oral Solution 125 mg PO Q6HR ml 05/01/19 [Rx] Follow up Appointment(s)/Referral(s): Devora Varma MD [Primary Care Provider] - 1-2 days Sanjeev Orosco MD [STAFF PHYSICIAN] - 06/01/19 1:30 pm Activity/Diet/Wound Care/Special Instructions: Patient to be transferred to [facility] as tolerated Continue current diet Discharge Disposition: TRANSFER TO SNF/ECF
[2019-05-02] MEDS: MAGNESIUM OXIDE 400 MG TAB PO SCH (19:59)
[2019-05-02] MEDS: ASPIRIN 81 MG PO SCH (19:59)
[2019-05-02] MEDS: CLOPIDOGREL 75 MG TAB PO SCH (19:59)
[2019-05-02] MEDS: CHOLECALCIFEROL 1,000 UNIT TAB PO SCH (19:59)
[2019-05-03] MEDS: VANCOMYCIN ORAL SOLUTION 250 MG/5 ML BOTTLE PO SCH ×4 (00:11→17:39)
[2019-05-03] MEDS: CHERRY FLAVOR 60 ML BOTTLE PO PRN ×4 (00:11→17:39)
[2019-05-03] MEDS: LISINOPRIL 20 MG TAB PO SCH (07:44)
[2019-05-03] MEDS: CARVEDILOL 3.125 MG TAB PO SCH ×2 (07:44→17:39)
[2019-05-03] MEDS: ATORVASTATIN 40 MG TAB PO SCH (07:44)
[2019-05-03] MEDS: levETIRAcetam 500 MG TAB PO SCH ×2 (07:44→17:39)
[2019-05-03] MEDS: PANTOPRAZOLE 40 MG/10 ML VIAL IVP SCH (07:45)
[2019-05-03] MEDS: PANTOPRAZOLE 40 MG TABLET PO SCH (07:52)
[2019-05-03 08:18] LABS: Basophils # (A) 0.1 k/uL (0-0.2); Basophils % (A) 1 %; Eosinophils # (A) 0.3 k/uL (0-0.7); Eosinophils % (A) 4 %; HCT 26.3 % (39.0-53.0); HGB 8.2 gm/dL (13.0-17.5); Hypochromasia Moderate; Lymphocytes # (A) 1.5 k/uL (1.0-4.8); Lymphocytes % (A) 20 %; MCH 25.9 pg (25.0-35.0); MCHC 31.3 g/dL (31.0-37.0); MCV 82.6 fL (80.0-100.0); Mean Platelet Volume 7.2; Monocytes # (A) 0.4 k/uL (0-1.0); Monocytes % (A) 5 %; Neutrophils # (A) 5.2 k/uL (1.3-7.7); Neutrophils % (A) 67 %; Platelet Count 302 k/uL (150-450); Poikilocytosis Slight; RBC 3.18 m/uL (4.30-5.90); RDW 15.3 % (11.5-15.5); WBC 7.7 k/uL (3.8-10.6)
--- NOTE | 2019-05-03 12:50 | P.PN ---
Progress Note - Text Progress Note Date: 05/03/19 Patient is doing well. He's had no further GI bleed. He has no abdominal pain. Resolving C. diff colitis. Patiently discharged home.
--- NOTE | 2019-05-03 13:58 | P.PN ---
Subjective 64-year-old male who was admitted with GI bleed that is being closely monitored. Patient states that he was having bright red blood with bowel movements and last episode was yesterday. Patient states that he is currently on aspirin and Plavix for CVA with right side upper and lower involvement that is still currently active. Patient denies any shortness of breath, chest pain, palpitations at this time. Patient is currently still nothing by mouth. Patient denies any abdominal pain just having some mild cramping at times. Patient denies any nausea or vomiting at this time patient is afebrile. Awaiting gastric consult at this time. 04/28/2019 This is a 64-year-old male who was admitted with acute GI bleed that is being closely monitored. Patient did have a lot of loose bowel movements last night and some this morning that did not have any blood in them. Around 11 AM today the patient experienced 2 loose bowel movements with large amounts of bright red blood noted. Patient's stool culture also tested positive for C. diff and is currently being monitored with GI. Patient is starting oral vanco today. Currently we are still holding his aspirin and Plavix as he is active bleeding rectally again. Patient is currently not a candidate for a scope with GI due to the C. diff until the infection is cleared. Patient denies having any nausea, or vomiting and denies any stomach pain at this time. Patient is afebrile. Repeat CBC done this afternoon shows a hemoglobin of 9.2. Per GI they will be ordering a tagged RBC scan as he is still actively bleeding. Patient is currently on a clear liquid diet and tolerating well. 04/29/19 Overnight patient was moved from his previous floor to the ICU for closer monitoring due to an increase in the amount of blood in the stool. Patient is currently at the side of the bed getting up with assistance due to his history of CVA with right side deficits to the bedside commode. This will be the second loose bowel movement with patricia red blood noted in a small amount. Hemoglobin is currently stable at 8.8. Patient denies any shortness of breath, chest pain, palpitations, nausea, or vomiting at this time. Patient denies any abdominal pain and is afebrile. Patient is NPO except ice chips at this time and is scheduled to go for an EGD and colonoscopy in the morning per GI. Patient was positive for cdiff and is being treated with oral vancomycin. Patient will be monitored closely of vitals and labs. 04/30/2019 Patient is sitting up in bed in no acute distress. Patient did have a clear liquid diet this morning and tolerated well. Patient did complete bowel prep with GoLYTELY overnight and is scheduled for an EGD and colonoscopy this morning with GI. Patient denies any abdominal pain, nausea, vomiting. Patient states that his bowel movements are still liquid and almost clear with no new bright red blood noted at this time. Patient remains afebrile. Patient denies any chest pain, shortness of breath, or palpitations at this time. Anticoagulation is still being held until after the procedures this afternoon. Will continue to monitor closely. Vital signs are stable. Current hemoglobin is 8.5. Patient is hemodynamically stable. Patient is going to have a midline placed today due to poor IV access. Patient refusing all IV access in the right side as he has a history of CVA with deficits on the right. 05/01/2019 Patient is sitting up in recliner in no acute distress. Patient states he is having some blood noted in his bowel movements that are dark with clots noted. Hemoglobin is stable at this time at 9.3. Patient is hemodynamically stable. Patient denies any abdominal pain, nausea, or vomiting at this time. Patient is afebrile. Vital signs are stable. Patient currently denies any chest pain, shortness of breath, or palpitations at this time. Anticoagulation of aspirin and Plavix will be resumed this evening. We will continue to monitor closely. [facility] is [facility] tomorrow morning. 05/02/2019 Patient doesn't have any more GI bleed stable receiving aspirin and Plavix patient is also on vancomycin for C. diff. 05/03/2019 No overnight events patient is just of an indoor to subacute rehabilitation Constitutional: Denied any fatigue denied any fever. Cardio vascular: denied any chest pain, palpitations Gastrointestinal denied any nausea vomiting Pulmonary: Denied any shortness of breath cough Neurologic denied any new focal deficits All inpatient medications were reviewed and appropriate changes in these medications as dictated in the interval history and assessment and plan. Objective - Vital Signs Vital signs: Vital Signs Temp 97.6 F 05/03/19 04:50 Pulse 62 05/03/19 04:50 Resp 20 05/03/19 04:50 BP 103/55 05/03/19 04:50 Pulse Ox 95 05/03/19 04:50 Intake & Output 05/02/19 05/03/19 05/03/19 18:59 06:59 18:59 Intake Total 250 Output Total 800 1350 Balance -800 -1350 250 Intake: Oral 250 Output: Urine 600 1350 Stool 200 Other: Voiding Method Urinal Urinal # Voids 1 # Bowel Movements 1 - Exam PHYSICAL EXAMINATION: GENERAL: The patient is alert and oriented x3, not in any acute distress. Well developed, well nourished. HEENT: Pupils are round and equally reacting to light. EOMI. No scleral icterus. No conjunctival pallor. Normocephalic, atraumatic. No pharyngeal erythema. No thyromegaly. CARDIOVASCULAR: S1 and S2 present. No murmurs, rubs, or gallops. PULMONARY: Chest is clear to auscultation, no wheezing or crackles. ABDOMEN: Soft, nontender, nondistended, normoactive bowel sounds. No palpable organomegaly. MUSCULOSKELETAL: No joint swelling or deformity. EXTREMITIES: No cyanosis, clubbing, or pedal edema. NEUROLOGICAL: Gross neurological examination did not reveal any new focal deficits. There is chronic weakness on the right side of the body SKIN: No rashes. - Labs CBC & Chem 7: 05/03/19 07:25 05/01/19 06:29 Labs: Abnormal Lab Results - Last 24 Hours (Table) 05/03/19 Range/Units 07:25 RBC 3.18 L (4.30-5.90) m/uL Hgb 8.2 L (13.0-17.5) gm/dL Hct 26.3 L (39.0-53.0) % Assessment and Plan Plan: -Acute lower GI bleed: diverticular bleed does have some mild gastritis as well. No more GI bleed patient was resumed on aspirin and Plavix -History of cerebral vascular accident with residual weakness 4/5 strength in right upper and lower extremities. -Hyperlipidemia -Hypertension: Coreg will be continued but will hold off on lisinopril because of anticipation that his blood pressure will drop because of acute GI bleed. -Seizure disorder -Coronary artery disease with cardiac catheterization and stent to RCA in February 2019
[2019-05-03] MEDS: CLOPIDOGREL 75 MG TAB PO SCH (20:35)
[2019-05-03] MEDS: MAGNESIUM OXIDE 400 MG TAB PO SCH (20:35)
[2019-05-03] MEDS: ASPIRIN 81 MG PO SCH (20:35)
[2019-05-03] MEDS: CHOLECALCIFEROL 1,000 UNIT TAB PO SCH (20:35)
[2019-05-04] MEDS: VANCOMYCIN ORAL SOLUTION 250 MG/5 ML BOTTLE PO SCH ×4 (00:51→17:00)
[2019-05-04] MEDS: CHERRY FLAVOR 60 ML BOTTLE PO PRN (00:51)
[2019-05-04] MEDS: LISINOPRIL 20 MG TAB PO SCH (07:48)
[2019-05-04] MEDS: levETIRAcetam 500 MG TAB PO SCH ×2 (07:49→17:00)
[2019-05-04] MEDS: PANTOPRAZOLE 40 MG TABLET PO SCH (07:49)
[2019-05-04] MEDS: ATORVASTATIN 40 MG TAB PO SCH (07:49)
[2019-05-04] MEDS: CARVEDILOL 3.125 MG TAB PO SCH ×2 (07:49→17:00)
[2019-05-04 09:44] LABS: Basophils # (A) 0.1 k/uL (0-0.2); Basophils % (A) 1 %; Eosinophils # (A) 0.3 k/uL (0-0.7); Eosinophils % (A) 4 %; HCT 26.1 % (39.0-53.0); HGB 8.1 gm/dL (13.0-17.5); Hypochromasia Moderate; Lymphocytes # (A) 1.6 k/uL (1.0-4.8); Lymphocytes % (A) 18 %; MCH 25.8 pg (25.0-35.0); MCV 83.2 fL (80.0-100.0); Mean Platelet Volume 6.9; Monocytes # (A) 0.4 k/uL (0-1.0); Monocytes % (A) 5 %; Neutrophils # (A) 6.2 k/uL (1.3-7.7); Neutrophils % (A) 71 %; Platelet Count 306 k/uL (150-450); Poikilocytosis Slight; RBC 3.13 m/uL (4.30-5.90); RDW 15.3 % (11.5-15.5); WBC 8.7 k/uL (3.8-10.6)
--- NOTE | 2019-05-04 10:13 | P.PN ---
Subjective Progress Note Date: 05/04/19 Principal diagnosis: This is a 64-year-old male who was admitted with GI bleed that is being closely monitored. Patient states that he was having bright red blood with bowel moveme nts and last episode was yesterday. Patient states that he is currently on aspirin and Plavix for CVA with right side upper and lower involvement that is still currently active. Patient denies any shortness of breath, chest pain, palpitations at this time. Patient is currently still nothing by mouth. Patient denies any abdominal pain just having some mild cramping at times. Patient denies any nausea or vomiting at this time patient is afebrile. Awaiting gastric consult at this time. 04/28/2019 This is a 64-year-old male who was admitted with acute GI bleed that is being closely monitored. Patient did have a lot of loose bowel movements last night and some this morning that did not have any blood in them. Around 11 AM today the patient experienced 2 loose bowel movements with large amounts of bright red blood noted. Patient's stool culture also tested positive for C. diff and is currently being monitored with GI. Patient is starting oral vanco today. Currently we are still holding his aspirin and Plavix as he is active bleeding rectally again. Patient is currently not a candidate for a scope with GI due to the C. diff until the infection is cleared. Patient denies having any nausea, or vomiting and denies any stomach pain at this time. Patient is afebrile. Repeat CBC done this afternoon shows a hemoglobin of 9.2. Per GI they will be ordering a tagged RBC scan as he is still actively bleeding. Patient is currently on a clear liquid diet and tolerating well. 04/29/19 Overnight patient was moved from his previous floor to the ICU for closer monitoring due to an increase in the amount of blood in the stool. Patient is currently at the side of the bed getting up with assistance due to his history of CVA with right side deficits to the bedside commode. This will be the second loose bowel movement with patricia red blood noted in a small amount. Hemoglobin is currently stable at 8.8. Patient denies any shortness of breath, chest pain, palpitations, nausea, or vomiting at this time. Patient denies any abdominal pain and is afebrile. Patient is NPO except ice chips at this time and is scheduled to go for an EGD and colonoscopy in the morning per GI. Patient was positive for cdiff and is being treated with oral vancomycin. Patient will be monitored closely of vitals and labs. 04/30/2019 Patient is sitting up in bed in no acute distress. Patient did have a clear liquid diet this morning and tolerated well. Patient did complete bowel prep with GoLYTELY overnight and is scheduled for an EGD and colonoscopy this morning with GI. Patient denies any abdominal pain, nausea, vomiting. Patient states that his bowel movements are still liquid and almost clear with no new bright red blood noted at this time. Patient remains afebrile. Patient denies any chest pain, shortness of breath, or palpitations at this time. Anticoagulation is still being held until after the procedures this afternoon. Will continue to monitor closely. Vital signs are stable. Current hemoglobin is 8.5. Patient is hemodynamically stable. Patient is going to have a midline placed today due to poor IV access. Patient refusing all IV access in the right side as he has a history of CVA with deficits on the right. 05/01/2019 Patient is sitting up in recliner in no acute distress. Patient states he is having some blood noted in his bowel movements that are dark with clots noted. Hemoglobin is stable at this time at 9.3. Patient is hemodynamically stable. Patient denies any abdominal pain, nausea, or vomiting at this time. Patient is afebrile. Vital signs are stable. Patient currently denies any chest pain, shortness of breath, or palpitations at this time. Anticoagulation of aspirin and Plavix will be resumed this evening. We will continue to monitor closely. Patient is awaiting for rehab placement at [facility] and is scheduled to go tomorrow morning. 05/04/19 Patient is sitting up in recliner watching TV eating a banana in no acute distress. Patient just finished having a large formed bowel movement and had some bright red blood noted at 100cc in the bedside commode. Patient denies any pain, nausea, vomiting, or diarrhea at this time. Patient is afebrile. Vital signs are stable. Hgb rechecked this am and is 8.2 currently. Patient has been taking his aspirin and plavix. Patient was to be discharged to [facility] over the weekend but they weren't aware of his cdiff. Patient has one more day of oral Vanco for this. GI was reconsulted for this acute GI bleed. Patient is being closely monitored. Will continue to monitor vital signs and labs. Patient denies any shortness of breath, chest pain, or palpitations at this time. Objective - Vital Signs Vital signs: Vital Signs Temp 97.9 F 05/04/19 05:01 Pulse 61 05/04/19 05:01 Resp 16 05/04/19 05:01 BP 110/49 05/04/19 05:01 Pulse Ox 95 05/04/19 05:01 Intake & Output 05/03/19 05/04/19 05/04/19 18:59 06:59 18:59 Intake Total 550 0 300 Output Total 1300 1050 0 Balance -750 -1050 300 Intake: Intake, IV Titration 0 Amount IV Fluid Continuation 1, 0 000 ml @ 0 mls/hr IV .[employer] ONE Rx#:[id number] Oral 550 300 Output: Urine 1100 1050 Stool 200 0 0 Other: Voiding Method Urinal Urinal Urinal # Voids 300 0 1 # Bowel Movements 1 0 1 - Exam Gen: This is a 64-year-old male sitting up in recliner in no acute distress. Vital signs are stable BP is 110/49, pulse is 61, respirations are 16 and non- labored, temp is 97.9 F, and oxygen saturation is 95% on room air. HEENT: Head is atraumatic, normocephalic. Pupils equal, round. Sclerae is anicteric. NECK: Supple. No JVD. No lymphadenopathy. No thyromegaly. LUNGS: Clear to auscultation. No wheezes or rhonchi. No intercostal retractions. HEART: Regular rate and rhythm. No murmur. ABDOMEN: Soft. Bowel sounds are present. No masses. No tenderness. EXTREMITIES: No pedal edema. No calf tenderness. NEUROLOGICAL: Patient is awake, alert and oriented x3. Cranial nerves 2 through 12 are grossly intact. Right side weakness of the upper and lower extremities from history of CVA. - Labs CBC & Chem 7: 05/04/19 09:06 05/01/19 06:29 Labs: Abnormal Lab Results - Last 24 Hours (Table) 05/04/19 Range/Units 09:06 RBC 3.13 L (4.30-5.90) m/uL Hgb 8.1 L (13.0-17.5) gm/dL Hct 26.1 L (39.0-53.0) % Assessment and Plan Assessment: Acute lower GI bleed: Either hemorrhoidal or diverticular. EGD and colonoscopy was done last week. Biopsies are pending. Aspirin and Plavix has been resumed. Patient is having 1-2 formed bowel movements each day but has had bright red blood with the stool for the last 2 days. Hgb is 8.2 and is hemodynamically stable. GI reconsulted for this. Will await further recommendations. 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 Will continue to monitor. Seizure disorder Coronary artery disease with cardiac catheterization and stent to the RCA in February 2019 GI prophylaxis Clostridium difficile currently being treated with oral vancomycin. One day left of vancomycin treatment. Recommendations and discussion: Recommend to continue current medications and continue symptomatic treatment. Patient's hemoglobin is 8.2 and stable. He will be closely monitored. We'll continue to monitor labs and vital signs. Guarded prognosis. Further recommendations to follow. Probable discharge in 24 hours to [facility]. Arrangements have been made. Case management is following. Will await GI consult.
--- NOTE | 2019-05-04 10:50 | P.PN ---
Subjective Progress Note Date: 05/04/19 Principal diagnosis: Rectal bleeding Admitted with acute GI bleed Clostridium difficile infection. History of CAD maintained on dual antiplatelet therapy. Status post EGD colonoscopy 04/30/2019 polypectomy 2 cold snare colonic diverticular disease internal hemorrhoids EGD was negative. Patient passed a gross painless bloody bowel this morning per nursing about 250 mL's. Patient did receive aspirin and Plavix today. Denies abdominal pain. Hemoglobin 8.1 relatively stable from yesterday's hemoglobin which was 8.2. Objective - Vital Signs Vital signs: Vital Signs Temp 97.9 F 05/04/19 05:01 Pulse 61 05/04/19 05:01 Resp 16 05/04/19 05:01 BP 110/49 05/04/19 05:01 Pulse Ox 95 05/04/19 05:01 Intake & Output 05/03/19 05/04/19 05/04/19 18:59 06:59 18:59 Intake Total 550 0 300 Output Total 1300 1050 0 Balance -750 -1050 300 Intake: Intake, IV Titration 0 Amount IV Fluid Continuation 1, 0 000 ml @ 0 mls/hr IV .[employer] ONE Rx#:[id number] Oral 550 300 Output: Urine 1100 1050 Stool 200 0 0 Other: Voiding Method Urinal Urinal Urinal # Voids 300 0 1 # Bowel Movements 1 0 1 - Exam General appearance: The patient is alert, oriented, in no acute distress. HET: Head is normocephalic and atraumatic. Pupils are equal and reactive. Oropharynx is clear without lesions. Neck: Supple without lymphadenopathy. Trachea midline. Heart: S1 S2. Regular rate and rhythm. Lungs: No crackles or wheezes are heard. Abdomen: Soft, nontender, nondistended with bowel sounds. No peritoneal signs. No palpable organomegaly or masses. Extremities: Normal skin color and turgor. No cyanosis, rash, ulceration, clubbing, or edema. Radial and pedal pulses are 2/4 bilaterally. Neurological: No focal deficits. Strength and sensation are grossly intact. - Labs CBC & Chem 7: 05/04/19 09:06 05/01/19 06:29 Labs: Abnormal Lab Results - Last 24 Hours (Table) 05/04/19 Range/Units 09:06 RBC 3.13 L (4.30-5.90) m/uL Hgb 8.1 L (13.0-17.5) gm/dL Hct 26.1 L (39.0-53.0) % Assessment and Plan (1) GI bleed Current Visit: Yes Status: Acute Code(s): K92.2 - GASTROINTESTINAL HEMORRHAGE, UNSPECIFIED SNOMED Code(s): 66258526 (2) Clostridium difficile colitis Current Visit: Yes Status: Acute Code(s): A04.72 - ENTEROCOLITIS D/T CLOS TRIDIUM DIFFICILE, NOT SPCF RECUR SNOMED Code(s): 926266483 (3) Anemia due to blood loss, acute Current Visit: Yes Status: Acute Code(s): D62 - ACUTE POSTHEMORRHAGIC ANEMIA SNOMED Code(s): 322996135 (4) CAD (coronary artery disease) Current Visit: No Status: Acute Code(s): I25.10 - ATHSCL HEART DISEASE OF [place] CORONARY ARTERY W/O ANG PCTRS SNOMED Code(s): 31717547 Plan: 1. Case was discussed with Dr. Orosco this morning. Dr. Orosco states that during the colonoscopy exam there was a fold near the rectosigmoid junction that appeared to be fissure-like. He suspects bleeding could be coming from this site exacerbated by dual antiplatelet therapy. Polypectomy bleeding, hemorrhoid al, colonic diverticular bleeding, small bowel bleeding is felt to be less likely the source but within the differential. Tagged RBC scan prior to endoscopic evaluation reported blood in the rectum. 2. Dr. Orosco recommends holding aspirin and Plavix in a.m. CBC is scheduled for 1800 tonight and in a.m. Decrease diet to clear liquids. If patient continues to have active bleeding will discuss possible surgical evaluation versus re-surveillance/EUA prior to discharge. Assessment and plan a care discussed with Dr. Orosco
--- NOTE | 2019-05-04 15:37 | P.PN ---
Subjective Progress Note Date: 05/04/19 CHIEF COMPLAINT: rectal bleeding HISTORY OF PRESENT ILLNESS: Patient examined at the bedside. Denies abdominal pain. Denies nausea or vomiting. Patient reports episode of bright red blood per rectum this morning. Hemoglobin remains stable at 8.1. Hemoglobin yesterday 8.2. PHYSICAL EXAM: VITAL SIGNS: Reviewed. GENERAL: Well-developed in no acute distress. HEENT: No sclera icterus. Extraocular movements grossly intact. Moist buccal mucosa. Head is atraumatic, normocephalic. ABDOMEN: Soft. Nondistended. Nontender. NEUROLOGIC: Alert and oriented. Cranial nerves II through XII grossly intact. ASSESSMENT: 1. Acute lower GI bleed 2. Acute blood loss anemia 3. C. difficile colitis PLAN: GI services following. Patient diet downgraded to clear liquid. Recommending plavix and aspirin to be held. Hemoglobin to be repeated at 1800 Monitor for further rectal bleeding Dr. Irwin recommends CT abdomen pelvis with oral contrast Nurse practitioner note has been reviewed by physician. Signing provider agrees with the documented findings, assessment, and plan of care. Objective - Vital Signs Vital signs: Vital Signs Temp 97.0 F L 05/04/19 14:07 Pulse 56 L 05/04/19 14:07 Resp 16 05/04/19 14:07 BP 118/63 05/04/19 14:07 Pulse Ox 99 05/04/19 14:07 Intake & Output 05/03/19 05/04/19 05/04/19 18:59 06:59 18:59 Intake Total 550 0 600 Output Total 1300 1050 0 Balance -750 -1050 600 Intake: Intake, IV Titration 0 Amount IV Fluid Continuation 1, 0 000 ml @ 0 mls/hr IV .[employer] ONE Rx#:[id number] Oral 550 600 Output: Urine 1100 1050 Stool 200 0 0 Other: Voiding Method Urinal Urinal Urinal # Voids 300 0 1 # Bowel Movements 1 0 1 - Labs CBC & Chem 7: 05/04/19 09:06 05/01/19 06:29 Labs: Abnormal Lab Results - Last 24 Hours (Table) 05/04/19 Range/Units 09:06 RBC 3.13 L (4.30-5.90) m/uL Hgb 8.1 L (13.0-17.5) gm/dL Hct 26.1 L (39.0-53.0) %
[2019-05-04] MEDS: IOPAMIDOL-300 CONTRAST 30 ML VIAL (ORAL USE) PO PRN ×2 (15:59→17:00)
--- NOTE | 2019-05-04 16:03 | P.CRDCN ---
History of Present Illness History of present illness: This is a pleasant 64-year-old male past medical history significant for coronary artery disease status post recent angioplasty maintained on dual antiplatelet therapy. He underwent successful stent placement to the mid and distal circumflex 01/05/2019 and successful stent placement to the RCA 02/19/2019. he also has had a CVA in the past with residual right sided weakness, hypert ension, dyslipidemia and seizure disorder. He presented to the hospital 04/26 with symptoms of bleeding in the stool requiring a blood transfusion. Hgb on admission was 8.0 and ropped to 7.0. He has undergone a colonoscopy per Dr. Orosco revealing mild gastritis, no active bleeding, polypectomy and hemorrhoids. He was resumed on dual anti-platelet therapy. This morning he had an episode of bright red bleeding noted in the stool. Dual antiplatelet therapy was discontinued and we were asked to evaluate the patient. He is seen and examined sitting up in the chair in no acute distress. He denies chest pain, shortness of breath, dizziness or palpitations. No further bleeding since this morning. Blood pressure 118/63 with a heart rate of 56. Laboratory data reviewed, hemoglobin this morning 8.1 yesterday was 8.2. Platelets 306. Currently maintained on carvedilol 3.125 mg twice a day, atorvastatin 40 mg daily and lisinopril 40 mg daily. At the time of my exam: CONSTITUTIONAL: Denies fever. Denies chills. EYES: Denies blurred vision. Denies vision changes. Denies eye pain. EARS, NOSE, MOUTH & THROAT: Denies headache. Denies sore throat. Denies ear pain. CARDIOVASCULAR: Denies chest pain. Denies shortness of breath. Denies orthopnea. Denies PND. Denies palpitations. RESPIRATORY: Denies cough. GASTROINTESTINAL: Denies abdominal pain. Denies diarrhea. Denies constipation. Denies nausea. Denies vomiting. MUSCULOSKELETAL: Denies myalgias. INTEGUMENTARY: Denies pruitis. Denies rash. NEUROLOGIC: Denies numbness. Denies tingling. Denies weakness. PSYCHIATRIC: Denies anxiety. Denies depression. ENDOCRINE: Denies fatigue. Denies weight change. Denies polydipsia. Denies polyurina. GENITOURINARY: Denies burning, hematuria or urgency with micturation. HEMATOLOGIC: Denies history of anemia. Denies bleeding. Blood pressure 118/63 heart rate 56 afebrile maintaining oxygen saturation on room air GENERAL: This is a 64-year-old male in no apparent distress at the time of my examination. Right-sided weakness secondary to CVA in the past. HEENT: Head is atraumatic, normocephalic. Pupils are equal, round. Sclerae anicteric. Conjunctivae are clear. Mucous membranes of the mouth are moist. Neck is supple. There is no jugular venous distention. No carotid bruit is heard. LUNGS: Clear to auscultation no wheezes, rales or rhonchi. No chest wall tenderness is noted on palpation or with deep breathing. HEART: Regular rate and rhythm without murmurs, rubs or gallops. S1 and S2 heard. ABDOMEN: Soft, nontender. Bowel sounds are heard. No organomegaly noted. EXTREMITIES: No evidence of peripheral edema and no calf tenderness noted. VASCULAR: Radial and dorsalis pedis pulses palpated, no evidence of clubbing. NEUROLOGIC: Patient is awake, alert and oriented x3. ASSESSMENT Acute GI bleed Recent multi-vessel angioplasty maintained on dual anti-platelet therapy Coronary artery disease Hypertension Dyslipidemia History of CVA PLAN Due to his recent multi-vessel PCI with a total of 4 stents he is very high risk for in-stent restenosis. Recommend daily hemoglobin/hematocrit and ongoing close evaluation of further episodes of bleeding. If levels remain stable and there is no further bleeding, recommend resuming plavix only in 72 hours. We will continue to follow and make recommendations accordingly. Thank you kindly for this consultation. Nurse Practitioner note has been reviewed, I agree with a documented findings and plan of care. Patient was seen and examined. Past Medical History Past Medical History: Coronary Artery Disease (CAD), CVA/TIA, Hyperlipidemia, Hypertension, Seizure Disorder Additional Past Medical History / Comment(s): Right SIDED WEAKNESS AFTER STROKE- NOT MUCH USE OF Right HAND , USES A WHEEL CHAIR,PIVOTS USES A QUAD CANE. History of Any Multi-Drug Resistant Organisms: None Reported Past Surgical History: Heart Catheterization With Stent Additional Past Surgical History / Comment(s): right hand surgery for pins, one testicle removed, 2 stents RCA 02/19/2019 Past Anesthesia/Blood Transfusion Reactions: No Reported Reaction Date of Last Stent Placement:: 02/19/2018 Past Psychological History: No Psychological Hx Reported Smoking Status: Former smoker Past Alcohol Use History: None Reported Additional Past Alcohol Use History / Comment(s): NO HISTORY AVAILABLE REGARDING HOW LONG HE SMOKED OR WHEN HE QUIT Past Drug Use History: None Reported - Past Family History Mother Family Medical History: Cancer Medications and Allergies Home Medications Medication Instructions Recorded Confirmed Type Acetaminophen Tab [Tylenol] 650 mg PO Q4H PRN 01/06/19 04/26/19 History Ascorbic Acid [Vitamin C] 500 mg PO HS@2100 01/06/19 04/26/19 History Aspirin [Children's Aspirin] 81 mg PO HS@2100 01/06/19 04/26/19 History Bisacodyl 10 mg RECTAL DAILY PRN 01/06/19 04/26/19 History Carvedilol [Coreg] 3.125 mg PO BID 01/06/19 04/26/19 History Cholecalciferol [Vitamin D3 (25 2,000 unit PO HS@2100 01/06/19 04/26/19 History Mcg = 1000 Iu)] Clopidogrel [Plavix] 75 mg PO HS 01/06/19 04/26/19 History Lisinopril 40 mg PO DAILY 01/06/19 04/26/19 History Potassium Chloride ER [K-Dur 20] 20 meq PO DAILY 01/06/19 04/26/19 History levETIRAcetam [Keppra] 500 mg PO BID@0700,1800 01/06/19 04/26/19 History Magnesium Oxide [Mag-Ox] 400 mg PO HS 02/18/19 04/26/19 History Atorvastatin [Lipitor] 40 mg PO DAILY 04/26/19 04/26/19 History Geritussin Dm 10 ml PO Q6H PRN 04/26/19 04/26/19 History Major-Prep Henrroid Oint 1 applic TOPICAL DAILY PRN 04/26/19 04/26/19 History Vancomycin Oral Solution 125 mg PO Q6HR ml 05/01/19 Rx Allergies Allergy/AdvReac Type Severity Reaction Status Date / Time No Known Allergies Allergy Verified 04/26/19 14:00 Physical Exam Vitals: Vital Signs Temp Pulse Pulse Resp BP BP Pulse Ox 05/04/19 14:07 97.0 F L 56 L 16 118/63 99 05/04/19 05:01 97.9 F 61 16 110/49 95 05/03/19 21:57 53 L 60 18 05/03/19 21:00 98.0 F 63 18 136/72 96 Intake and Output 05/04/19 05/04/19 05/04/19 06:59 14:59 22:59 Intake Total 600 Output Total 700 0 Balance -700 600 Intake: Oral 600 Output: Urine 700 Stool 0 0 Other: Voiding Method Urinal # Voids 0 1 # Bowel Movements 1 Results 05/04/19 09:06 05/01/19 06:29 CBC 05/04/19 Range/Units 09:06 WBC 8.7 (3.8-10.6) k/uL RBC 3.13 L (4.30-5.90) m/uL Hgb 8.1 L (13.0-17.5) gm/dL Hct 26.1 L (39.0-53.0) % Plt Count 306 (150-450) k/uL Current Medications Generic Name Dose Route Start Last Admin Trade Name Freq PRN Reason Stop Dose Admin Acetaminophen 650 mg 04/26/19 16:26 Tylenol Tab PO Q4H PRN Mild Pain Atorvastatin Calcium 40 mg 04/27/19 09:00 05/04/19 07:49 Lipitor PO 40 mg DAILY CAMRYN Administration Bisacodyl 10 mg 04/26/19 16:26 Dulcolax RECTAL DAILY PRN Constipation Carvedilol 3.125 mg 04/26/19 17:30 05/04/19 07:49 Coreg PO 3.125 mg AC-BID CAMRYN Administration Toth Syrup 5 ml 04/28/19 10:06 05/04/19 00:51 Toth Syrup PO 5 ml Q6H PRN Administration VANCO FLAVORING Cholecalciferol 2,000 unit 04/26/19 21:00 05/03/19 20:35 Vitamin D3 (25 Mcg = 1000 Iu) PO 2,000 unit HS@2100 CAMRYN Administration Iopamidol 30 ml 05/04/19 15:36 Isovue-300 30 Ml (For Oral Use) PO 05/05/19 15:[address] Scan Levetiracetam 500 mg 04/26/19 18:00 05/04/19 07:49 Keppra PO 500 mg BID@0700,1800 CAMRYN Administration Lisinopril 40 mg 04/29/19 19:00 05/04/19 07:48 Zestril PO 40 mg DAILY CAMRYN Administration Magnesium Oxide 400 mg 04/26/19 21:00 05/03/19 20:35 Mag-Ox PO 400 mg HS CAMRYN Administration Pantoprazole Sodium 40 mg 05/03/19 08:00 05/04/19 07:49 Protonix PO 40 mg AC-BRKFST CAMRYN Administration Vancomycin HCl 125 mg 04/28/19 06:00 05/04/19 12:03 Vancomycin Oral Solution PO 125 mg Q6HR CAMRYN Administration Intake and Output 05/04/19 05/04/19 05/04/19 06:59 14:59 22:59 Intake Total 600 Output Total 700 0 Balance -700 600 Intake: Oral 600 Output: Urine 700 Stool 0 0 Other: Voiding Method Urinal # Voids 0 1 # Bowel Movements 1 05/04/19 09:06 05/01/19 06:29
[2019-05-04 19:57] LABS: Basophils # (A) 0.1 k/uL (0-0.2); Basophils % (A) 1 %; Eosinophils # (A) 0.4 k/uL (0-0.7); Eosinophils % (A) 4 %; HGB 8.6 gm/dL (13.0-17.5); Hypochromasia Moderate; Lymphocytes # (A) 2.3 k/uL (1.0-4.8); Lymphocytes % (A) 24 %; MCH 25.6 pg (25.0-35.0); MCHC 30.6 g/dL (31.0-37.0); MCV 83.7 fL (80.0-100.0); Mean Platelet Volume 6.7; Monocytes # (A) 0.6 k/uL (0-1.0); Monocytes % (A) 6 %; Neutrophils # (A) 5.9 k/uL (1.3-7.7); Neutrophils % (A) 61 %; Platelet Count 337 k/uL (150-450); Poikilocytosis Slight; RBC 3.35 m/uL (4.30-5.90); RDW 15.3 % (11.5-15.5); WBC 9.6 k/uL (3.8-10.6)
[2019-05-04] MEDS: MAGNESIUM OXIDE 400 MG TAB PO SCH (20:20)
[2019-05-04] MEDS: CHOLECALCIFEROL 1,000 UNIT TAB PO SCH (20:20)
--- NOTE | 2019-05-04 21:30 | CT ---
EXAMINATION TYPE: CT abdomen pelvis wo con DATE OF EXAM: 05/04/2019 HISTORY: rectal bleeding and generalized pain CT DLP: 919 mGycm. Automated Exposure Control for Dose Reduction was Utilized. TECHNIQUE: CT scan of the abdomen and pelvis is performed without oral or IV contrast. COMPARISON: NONE FINDINGS: Within the limitations of a non-contrast study, the following observations are made. LUNG BASES: Coronary artery calcification and/or stents are present. LIVER/GB: A a few small simple appearing thin-walled cysts left hepatic lobe are identified. There is 2.9 cm calculus in gallbladder without surrounding inflammatory change. PANCREAS: No significant abnormality is seen. SPLEEN: Occasional calcification throughout the spleen is presumed product of old granulomatous disea se. ADRENALS: No significant abnormality is seen. 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 Asymmetric right-sided cortical volume loss and atrophy with central 5 to 6 mm metallic density presumed product of prior surgery or possible aneurysm coiling along the course of central artery. There is similar slightly more prominen t metallic density centrally in the left kidney. There are several simple-appearing thin-walled cysts throughout the left kidney. Bladder is mildly distended. BOWEL: Oral contrast does not reach level of the terminal ileum making evaluation of distal bowel sub optimal. No suspicious small or large bowel dilatation. Few diverticula near the junction of left and sigmoid colon without CT evidence for acute diverticulitis. GENITAL ORGANS: No gross abnormality seen. LYMPH NODES: No greater than 1cm abdominal or pelvic lymph nodes are appreciated. OSSEOUS STRUCTURES: S-shaped scoliosis with moderate to severe multilevel spurring. Moderate to sever e disc space narrowing and vacuum disc phenomenon right L3-L4 through the L5-S1 levels is present. Mu ltilevel facet arthropathy in the lower lumbar spine is noted. OTHER: There is aortobiiliac stent graft. Additional coil suspected anterior to stent graft axial rodney ge 37 IMPRESSION: A few distal colonic diverticula. No CT evidence for acute diverticulitis.
[2019-05-05] MEDS: VANCOMYCIN ORAL SOLUTION 250 MG/5 ML BOTTLE PO SCH ×2 (00:41→06:03)
[2019-05-05 01:10] LABS: Basophils # (A) 0.1 k/uL (0-0.2); Basophils % (A) 1 %; Eosinophils # (A) 0.4 k/uL (0-0.7); Eosinophils % (A) 4 %; HCT 25.4 % (39.0-53.0); HGB 7.8 gm/dL (13.0-17.5); Hypochromasia Moderate; Lymphocytes # (A) 2.2 k/uL (1.0-4.8); Lymphocytes % (A) 28 %; MCH 25.4 pg (25.0-35.0); MCHC 30.5 g/dL (31.0-37.0); MCV 83.2 fL (80.0-100.0); Mean Platelet Volume 8.1; Monocytes # (A) 0.5 k/uL (0-1.0); Monocytes % (A) 6 %; Neutrophils # (A) 4.7 k/uL (1.3-7.7); Neutrophils % (A) 58 %; Platelet Count 266 k/uL (150-450); Poikilocytosis Slight; RBC 3.05 m/uL (4.30-5.90); RDW 15.3 % (11.5-15.5); WBC 8.1 k/uL (3.8-10.6)
[2019-05-05] MEDS: PANTOPRAZOLE 40 MG TABLET PO SCH (08:16)
[2019-05-05] MEDS: LISINOPRIL 20 MG TAB PO SCH (08:16)
[2019-05-05] MEDS: levETIRAcetam 500 MG TAB PO SCH ×2 (08:16→16:50)
[2019-05-05] MEDS: ATORVASTATIN 40 MG TAB PO SCH (08:16)
[2019-05-05] MEDS: CARVEDILOL 3.125 MG TAB PO SCH ×2 (08:16→16:50)
[2019-05-05 11:41] LABS: Basophils # (A) 0.1 k/uL (0-0.2); Basophils % (A) 1 %; Eosinophils # (A) 0.3 k/uL (0-0.7); Eosinophils % (A) 4 %; HGB 8.5 gm/dL (13.0-17.5); Hypochromasia Marked; Lymphocytes # (A) 1.3 k/uL (1.0-4.8); Lymphocytes % (A) 17 %; MCH 26.6 pg (25.0-35.0); MCHC 31.4 g/dL (31.0-37.0); MCV 84.5 fL (80.0-100.0); Mean Platelet Volume 7.1; Monocytes # (A) 0.7 k/uL (0-1.0); Monocytes % (A) 9 %; Neutrophils # (A) 5.2 k/uL (1.3-7.7); Neutrophils % (A) 67 %; Platelet Count 303 k/uL (150-450); Poikilocytosis Slight; RBC 3.19 m/uL (4.30-5.90); RDW 15.3 % (11.5-15.5); WBC 7.8 k/uL (3.8-10.6)
--- NOTE | 2019-05-05 13:14 | P.PN ---
Subjective Progress Note Date: 05/05/19 CHIEF COMPLAINT: rectal bleeding HISTORY OF PRESENT ILLNESS: Patient examined at the bedside. patient reports 2 episodes of bloody bowel movements yesterday. Per nursing, patient had 2 brown bowel movements this morning with some bright red blood on the toilet paper when wiping. hemoglobin yesterday 0.6. Repeat overnight 7.8. Repeat this morning 8.5. Patient tolerating diet. Denies nausea or vomiting. CT scan completed yesterday reviewed. PHYSICAL EXAM: VITAL SIGNS: Reviewed. GENERAL: Well-developed in no acute distress. HEENT: No sclera icterus. Extraocular movements grossly intact. Moist buccal mucosa. Head is atraumatic, normocephalic. ABDOMEN: Soft. Nondistended. Mild tenderness to mid abdomen. NEUROLOGIC: Alert and oriented. Cranial nerves II through XII grossly intact. ASSESSMENT: 1. Acute lower GI bleed 2. Acute blood loss anemia 3. C. difficile colitis PLAN: GI services following. Patient diet downgraded to clear liquid. Diet advancement per GI. GI services recommending plavix and aspirin to be held. Will defer to cardiology Monitor for further rectal bleeding No surgical intervention recommended at this time Nurse practitioner note has been reviewed by physician. Signing provider agrees with the documented findings, assessment, and plan of care. Objective - Vital Signs Vital signs: Vital Signs Temp 98.2 F 05/05/19 06:40 Pulse 61 05/05/19 06:40 Resp 18 05/05/19 06:40 BP 125/59 05/05/19 06:40 Pulse Ox 100 05/05/19 06:40 Intake & Output 05/04/19 05/05/19 05/05/19 18:59 06:59 18:59 Intake Total 600 300 Output Total 700 1500 Balance -100 -1200 Intake: Oral 600 300 Output: Urine 700 1500 Stool 0 0 Other: Voiding Method Urinal Urinal # Voids 1 0 # Bowel Movements 1 0 1 - Labs CBC & Chem 7: 05/05/19 10:24 05/01/19 06:29 Labs: Abnormal Lab Results - Last 24 Hours (Table) 05/04/19 05/05/19 05/05/19 Range/Units 19:36 00:57 10:24 RBC 3.35 L 3.05 L 3.19 L (4.30-5.90) m/uL Hgb 8.6 L 7.8 L 8.5 L (13.0-17.5) gm/dL Hct 28.0 L 25.4 L 27.0 L (39.0-53.0) % MCHC 30.6 L 30.5 L (31.0-37.0) g/dL
--- NOTE | 2019-05-05 13:54 | P.PN ---
Subjective Progress Note Date: 05/05/19 Principal diagnosis: Rectal bleeding Admitted with acute GI bleed Clostridium difficile infection. History of CAD maintained on dual antiplatelet therapy. Status post EGD colonoscopy 04/30/2019 polypectomy 2 cold snare colonic diverticular disease internal hemorrhoids EGD was negative. Patient passed 3 bowel movements today 3 were brown in color however nursing noted some red blood-tinged residue upon wiping. Aspirin and Plavix on hold. Denies abdominal pain. Hemoglobin 8.5. No abdominal complaints. Objective - Vital Signs Vital signs: Vital Signs Temp 98.2 F 05/05/19 06:40 Pulse 61 05/05/19 06:40 Resp 18 05/05/19 06:40 BP 125/59 05/05/19 06:40 Pulse Ox 100 05/05/19 06:40 Intake & Output 05/04/19 05/05/19 05/05/19 18:59 06:59 18:59 Intake Total 600 300 Output Total 700 1500 Balance -100 -1200 Intake: Oral 600 300 Output: Urine 700 1500 Stool 0 0 Other: Voiding Method Urinal Urinal # Voids 1 0 # Bowel Movements 1 0 1 - Exam General appearance: The patient is alert, oriented, in no acute distress. HET: Head is normocephalic and atraumatic. Pupils are equal and reactive. Oropharynx is clear without lesions. Neck: Supple without lymphadenopathy. Trachea midline. Heart: S1 S2. Regular rate and rhythm. Lungs: No crackles or wheezes are heard. Abdomen: Soft, nontender, nondistended with bowel sounds. No peritoneal signs. No palpable organomegaly or masses. Extremities: Normal skin color and turgor. No cyanosis, rash, ulceration, clubbing, or edema. Radial and pedal pulses are 2/4 bilaterally. Neurological: No focal deficits. Strength and sensation are grossly intact. - Labs CBC & Chem 7: 05/05/19 10:24 05/01/19 06:29 Labs: Abnormal Lab Results - Last 24 Hours (Table) 05/04/19 05/05/19 05/05/19 Range/Units 19:36 00:57 10:24 RBC 3.35 L 3.05 L 3.19 L (4.30-5.90) m/uL Hgb 8.6 L 7.8 L 8.5 L (13.0-17.5) gm/dL Hct 28.0 L 25.4 L 27.0 L (39.0-53.0) % MCHC 30.6 L 30.5 L (31.0-37.0) g/dL Assessment and Plan (1) GI bleed Narrative/Plan: Acute rectal bleeding abdominal pain component of acute blood loss anemia with underlying C. diff infection tag RBC scan reported bleeding within the rectum differentials include but cannot be excluded inflammatory colitis proctitis, colonic diverticular bleed, bleeding AVM, stercoral ulcer, possible neoplasm. Current Visit: Yes Status: Acute Code(s): K92.2 - GASTROINTESTINAL HEMORRHAGE, UNSPECIFIED SNOMED Code(s): 57811582 (2) Clostridium difficile colitis Current Visit: Yes Status: Acute Code(s): A04.72 - ENTEROCOLITIS D/T CLOST RIDIUM DIFFICILE, NOT SPCF RECUR SNOMED Code(s): 108255794 (3) Anemia due to blood loss, acute Current Visit: Yes Status: Acute Code(s): D62 - ACUTE POSTHEMORRHAGIC ANEMIA SNOMED Code(s): 018719090 (4) CAD (coronary artery disease) Current Visit: No Status: Acute Code(s): I25.10 - ATHSCL HEART DISEASE OF [place] CORONARY ARTERY W/O ANG PCTRS SNOMED Code(s): 56246239 Plan: 1. Dr. Orosco states that during the colonoscopy exam there was a fold near the rectosigmoid junction that appeared to be fissure-like. He suspects bleeding could be coming from this site exacerbated by dual antiplatelet therapy. Polypectomy bleeding, hemorrhoidal, colonic diverticular bleeding, small bowel bleeding is felt to be less likely the source but within the differential. Tagged RBC scan prior to endoscopic evaluation reported blood in the rectum. 2. Dr. Orosco recommends holding aspirin and Plavix. Daily CBC. Full liquids. If patient continues to have active bleeding will discuss possible surgical evaluation versus re-surveillance/EUA prior to discharge. Assessment and plan a care discussed with Dr. Orosco
--- NOTE | 2019-05-05 15:17 | P.PN ---
Subjective This is a pleasant 64-year-old male past medical history significant for coronary artery disease status post recent angioplasty maintained on dual antiplatelet therapy. He underwent successful stent placement to the mid and distal circumflex 01/05/2019 and successful stent placement to the RCA 02/19/2019. 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 He presented to the hospital 04/26 with symptoms of bleeding in the stool requiring a blood transfusion. Hgb on admission was 8.0 and ropped to 7.0. He has undergone a colonoscopy per Dr. Orosco revealing mild gastritis, no active bleeding, polypectomy and hemorrhoids. He was resumed on dual anti-platelet therapy. This morning he had an episode of bright red bleeding noted in the stool. Dual antiplatelet therapy was discontinued and we were asked to evaluate the patient. He is seen and examined sitting up in the chair in no acute distress. He denies chest pain, shortness of breath, dizziness or palpitations. No further bleeding since this morning. Blood pressure 118/63 with a heart rate of 56. Laboratory data reviewed, hemoglobin this morning 8.1 yesterday was 8.2. Platelets 306. Currently maintained on carvedilol 3.125 mg twice a day, atorvastatin 40 mg daily and lisinopril 40 mg daily. 05/05/2019 Pt is seen and examined sitting up in the chair. He had a witnessed bright red stool prior to this exam in the commode. There was dark brown loose stool noted with approximately 40% of the stool noted to be bright red and bright red blood noted on the patients brief and on the sanitary napkin. He denies chest pain, shortness of breath, dizziness or palpitations. Blood pressure 125/59 heart rate 61 afebrile maintaining oxygen saturation on room air. Serial hgbs are stable. EKG obtained reveals right bundle branch block with flat T-waves inferiorly and PVC's noted. No acute changes. GENERAL: This is a 64-year-old male in no apparent distress at the time of my examination. Right-sided weakness secondary to CVA in the past. HEENT: Head is atraumatic, normocephalic. Pupils are equal, round. Sclerae anicteric. Conjunctivae are clear. Mucous membranes of the mouth are moist. Neck is supple. There is no jugular venous distention. No carotid bruit is heard. LUNGS: Clear to auscultation no wheezes, rales or rhonchi. No chest wall tenderness is noted on palpation or with deep breathing. HEART: Regular rate and rhythm without murmurs, rubs or gallops. S1 and S2 heard. EXTREMITIES: No evidence of peripheral edema and no calf tenderness noted. ASSESSMENT Acute GI bleed Recent multi-vessel angioplasty maintained on dual anti-platelet therapy Coronary artery disease Hypertension Dyslipidemia History of CVA PLAN Due to his recent multi-vessel PCI with a total of 4 stents he is very high risk for in-stent restenosis. Continue to hold aspirin and plavix. Follow hgb/hct trend. Ongoing evaluation and consideration for repeat colonoscopy per GI. We will continue to follow. Nurse Practitioner note has been reviewed, I agree with a documented findings and plan of care. Patient was seen and examined. Objective - Vital Signs Vital signs: Vital Signs Temp 98.2 F 05/05/19 06:40 Pulse 61 05/05/19 06:40 Resp 18 05/05/19 06:40 BP 125/59 05/05/19 06:40 Pulse Ox 100 05/05/19 06:40 Intake & Output 05/04/19 05/05/19 05/05/19 18:59 06:59 18:59 Intake Total 600 300 Output Total 700 1500 Balance -100 -1200 Intake: Oral 600 300 Output: Urine 700 1500 Stool 0 0 Other: Voiding Method Urinal Urinal # Voids 1 0 # Bowel Movements 1 0 1 - Labs CBC & Chem 7: 05/05/19 10:24 05/01/19 06:29 Labs: Abnormal Lab Results - Last 24 Hours (Table) 05/04/19 05/05/19 05/05/19 Range/Units 19:36 00:57 10:24 RBC 3.35 L 3.05 L 3.19 L (4.30-5.90) m/uL Hgb 8.6 L 7.8 L 8.5 L (13.0-17.5) gm/dL Hct 28.0 L 25.4 L 27.0 L (39.0-53.0) % MCHC 30.6 L 30.5 L (31.0-37.0) g/dL
--- NOTE | 2019-05-05 16:06 | P.PN ---
Subjective Progress Note Date: 05/05/19 Principal diagnosis: This is a 64-year-old male who was admitted with GI bleed that is being closely monitored. Patient states that he was having bright red blood with bowel moveme nts and last episode was yesterday. Patient states that he is currently on aspirin and Plavix for CVA with right side upper and lower involvement that is still currently active. Patient denies any shortness of breath, chest pain, palpitations at this time. Patient is currently still nothing by mouth. Patient denies any abdominal pain just having some mild cramping at times. Patient denies any nausea or vomiting at this time patient is afebrile. Awaiting gastric consult at this time. 04/28/2019 This is a 64-year-old male who was admitted with acute GI bleed that is being closely monitored. Patient did have a lot of loose bowel movements last night and some this morning that did not have any blood in them. Around 11 AM today the patient experienced 2 loose bowel movements with large amounts of bright red blood noted. Patient's stool culture also tested positive for C. diff and is currently being monitored with GI. Patient is starting oral vanco today. Currently we are still holding his aspirin and Plavix as he is active bleeding rectally again. Patient is currently not a candidate for a scope with GI due to the C. diff until the infection is cleared. Patient denies having any nausea, or vomiting and denies any stomach pain at this time. Patient is afebrile. Repeat CBC done this afternoon shows a hemoglobin of 9.2. Per GI they will be ordering a tagged RBC scan as he is still actively bleeding. Patient is currently on a clear liquid diet and tolerating well. 04/29/19 Overnight patient was moved from his previous floor to the ICU for closer monitoring due to an increase in the amount of blood in the stool. Patient is currently at the side of the bed getting up with assistance due to his history of CVA with right side deficits to the bedside commode. This will be the second loose bowel movement with patricia red blood noted in a small amount. Hemoglobin is currently stable at 8.8. Patient denies any shortness of breath, chest pain, palpitations, nausea, or vomiting at this time. Patient denies any abdominal pain and is afebrile. Patient is NPO except ice chips at this time and is scheduled to go for an EGD and colonoscopy in the morning per GI. Patient was positive for cdiff and is being treated with oral vancomycin. Patient will be monitored closely of vitals and labs. 04/30/2019 Patient is sitting up in bed in no acute distress. Patient did have a clear liquid diet this morning and tolerated well. Patient did complete bowel prep with GoLYTELY overnight and is scheduled for an EGD and colonoscopy this morning with GI. Patient denies any abdominal pain, nausea, vomiting. Patient states that his bowel movements are still liquid and almost clear with no new bright red blood noted at this time. Patient remains afebrile. Patient denies any chest pain, shortness of breath, or palpitations at this time. Anticoagulation is still being held until after the procedures this afternoon. Will continue to monitor closely. Vital signs are stable. Current hemoglobin is 8.5. Patient is hemodynamically stable. Patient is going to have a midline placed today due to poor IV access. Patient refusing all IV access in the right side as he has a history of CVA with deficits on the right. 05/01/2019 Patient is sitting up in recliner in no acute distress. Patient states he is having some blood noted in his bowel movements that are dark with clots noted. Hemoglobin is stable at this time at 9.3. Patient is hemodynamically stable. Patient denies any abdominal pain, nausea, or vomiting at this time. Patient is afebrile. Vital signs are stable. Patient currently denies any chest pain, shortness of breath, or palpitations at this time. Anticoagulation of aspirin and Plavix will be resumed this evening. We will continue to monitor closely. Patient is awaiting for rehab placement at [facility] and is scheduled to go tomorrow morning. 05/04/19 Patient is sitting up in recliner watching TV eating a banana in no acute distress. Patient just finished having a large formed bowel movement and had some bright red blood noted at 100cc in the bedside commode. Patient denies any pain, nausea, vomiting, or diarrhea at this time. Patient is afebrile. Vital signs are stable. Hgb rechecked this am and is 8.2 currently. Patient has been taking his aspirin and plavix. Patient was to be discharged to [facility] over the weekend but they weren't aware of his cdiff. Patient has one more day of oral Vanco for this. GI was reconsulted for this acute GI bleed. Patient is being closely monitored. Will continue to monitor vital signs and labs. Patient denies any shortness of breath, chest pain, or palpitations at this time. 05/05/2019 Patient is sitting up in the recliner in no acute distress eating a clear liquid diet and tolerating. Patient states that he had another bowel movement today with bright red blood noted and formed brown stool. GI and surgery are following. CBCs are being monitored closely this acute blood loss. At this time aspirin and Plavix are being held and will resume Plavix in 3 days provided the patient is hemodynamically stable. Patient denies any abdominal pain, na usea, or vomiting. Patient denies any chest pain, shortness of breath, or palpitations at this time. Patient's vital signs are stable and patient remains afebrile. Patient completed his oral Vanco course of antibiotics for his C. diff. We will continue to monitor closely. Objective - Vital Signs Vital signs: Vital Signs Temp 97.5 F L 05/05/19 13:45 Pulse 59 L 05/05/19 13:45 Resp 16 05/05/19 13:45 BP 137/71 05/05/19 13:45 Pulse Ox 99 05/05/19 13:45 Intake & Output 05/04/19 05/05/19 05/05/19 18:59 06:59 18:59 Intake Total 600 300 Output Total 700 1500 Balance -100 -1200 Intake: Oral 600 300 Output: Urine 700 1500 Stool 0 0 Other: Voiding Method Urinal Urinal # Voids 1 0 # Bowel Movements 1 0 1 - Exam Gen: This is a 64-year-old male sitting up in recliner in no acute distress. Vital signs are stable BP is 125/59, pulse is 61, respirations are 18 and non- labored, temp is 98.2 F, and oxygen saturation is 100 % on room air. HEENT: Head is atraumatic, normocephalic. Pupils equal, round. Sclerae is anicteric. Oral mucosa is pale NECK: Supple. No JVD. No lymphadenopathy. No thyromegaly. LUNGS: Clear to auscultation. No wheezes or rhonchi. No intercostal retractions. HEART: Regular rate and rhythm. No murmur. ABDOMEN: Soft. Bowel sounds are present. No masses. No tenderness. EXTREMITIES: No pedal edema. No calf tenderness. NEUROLOGICAL: Patient is awake, alert and oriented x3. Cranial nerves 2 through 12 are grossly intact. Right side weakness of the upper and lower extremities from history of CVA. - Labs CBC & Chem 7: 05/05/19 10:24 05/01/19 06:29 Labs: Abnormal Lab Results - Last 24 Hours (Table) 05/04/19 05/05/19 05/05/19 Range/Units 19:36 00:57 10:24 RBC 3.35 L 3.05 L 3.19 L (4.30-5.90) m/uL Hgb 8.6 L 7.8 L 8.5 L (13.0-17.5) gm/dL Hct 28.0 L 25.4 L 27.0 L (39.0-53.0) % MCHC 30.6 L 30.5 L (31.0-37.0) g/dL Assessment and Plan Assessment: Acute lower GI bleed: Either hemorrhoidal or diverticular. EGD and colonoscopy was done last week. Biopsies are pending. Aspirin and Plavix are being held for 3 days due to bright red blood noted with each bowel movement in the morning. CBCs are being monitored. Current Hgb is 8.5 and is hemodynamically stable. GI is following. Will await further recommendations. 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 Will continue to monitor. Seizure disorder Coronary artery disease with cardiac catheterization and stent to the RCA in February 2019. Cardiology is following GI prophylaxis Clostridium difficile currently finished oral vancomycin yesterday Recommendations and discussion: Recommend to continue current medications and continue symptomatic treatment. Patient's hemoglobin is 8.5 and stable. He will be closely monitored. We'll continue to monitor labs and vital signs. Guarded prognosis. Further recommendations to follow. Probable discharge in 24-48 hours to [facility] provided no surgical intervention is needed for the continued rectal bleeding. Arrangements have been made. Case management is following. Will await GI consult.
[2019-05-05 18:09] LABS: HCT 28.8 % (39.0-53.0); HGB 8.9 gm/dL (13.0-17.5); Hypochromasia Marked; MCH 26.3 pg (25.0-35.0); MCV 84.9 fL (80.0-100.0); Mean Platelet Volume 6.8; Platelet Count 286 k/uL (150-450); Poikilocytosis Slight; RDW 15.3 % (11.5-15.5); WBC 9.1 k/uL (3.8-10.6)
[2019-05-05] MEDS: MAGNESIUM OXIDE 400 MG TAB PO SCH (20:37)
[2019-05-05] MEDS: CHOLECALCIFEROL 1,000 UNIT TAB PO SCH (20:37)
[2019-05-06 05:50] LABS: HCT 24.2 % (39.0-53.0); HGB 7.6 gm/dL (13.0-17.5); Hypochromasia Moderate; MCH 25.9 pg (25.0-35.0); MCHC 31.2 g/dL (31.0-37.0); MCV 83.2 fL (80.0-100.0); Mean Platelet Volume 6.8; Platelet Count 253 k/uL (150-450); Poikilocytosis Slight; RBC 2.91 m/uL (4.30-5.90); RDW 15.2 % (11.5-15.5)
[2019-05-06] MEDS: ATORVASTATIN 40 MG TAB PO SCH (07:55)
[2019-05-06] MEDS: LISINOPRIL 20 MG TAB PO SCH (07:55)
[2019-05-06] MEDS: CARVEDILOL 3.125 MG TAB PO SCH ×2 (07:55→17:16)
[2019-05-06] MEDS: levETIRAcetam 500 MG TAB PO SCH ×2 (07:55→17:16)
[2019-05-06] MEDS: PANTOPRAZOLE 40 MG TABLET PO SCH (07:55)
--- NOTE | 2019-05-06 11:55 | P.PN ---
Subjective This is a pleasant 64-year-old male past medical history significant for coronary artery disease status post recent angioplasty maintained on dual antiplatelet therapy. He underwent successful stent placement to the mid and distal circumflex 01/05/2019 and successful stent placement to the RCA 02/19/2019. 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 He presented to the hospital 04/26 with symptoms of bleeding in the stool requiring a blood transfusion. Hgb on admission was 8.0 and ropped to 7.0. He has undergone a colonoscopy per Dr. Orosco revealing mild gastritis, no active bleeding, polypectomy and hemorrhoids. He was resumed on dual anti-platelet therapy. This morning he had an episode of bright red bleeding noted in the stool. Dual antiplatelet therapy was discontinued and we were asked to evaluate the patient. He is seen and examined sitting up in the chair in no acute distress. He denies chest pain, shortness of breath, dizziness or palpitations. No further bleeding since this morning. Blood pressure 118/63 with a heart rate of 56. Laboratory data reviewed, hemoglobin this morning 8.1 yesterday was 8.2. Platelets 306. Currently maintained on carvedilol 3.125 mg twice a day, atorvastatin 40 mg daily and lisinopril 40 mg daily. 05/05/2019 Pt is seen and examined sitting up in the chair. He had a witnessed bright red stool prior to this exam in the commode. There was dark brown loose stool noted with approximately 40% of the stool noted to be bright red and bright red blood noted on the patients brief and on the sanitary napkin. He denies chest pain, shortness of breath, dizziness or palpitations. Blood pressure 125/59 heart rate 61 afebrile maintaining oxygen saturation on room air. Serial hgbs are stable. EKG obtained reveals right bundle branch block with flat T-waves inferiorly and PVC's noted. No acute changes. 05/06/2019 Pt is currently up using the commode having a bowel movement. Per the staff this is his third bowel movement this morning. Each time there is a similar appearance with brown stool and bright red blood on top of the stool with significant amount of bright red blood on the sanitary napkin after wiping. He denies chest pain, shortness of breath, dizziness or palpitations. Laboratory data reviewed, hgb last evening was 8.9 with repeat this morning 7.6. Blood pressure 112/58 heart rate 59 afebrile and maintaining oxygen saturation on room air. Aspirin and plavix continue to be held. GENERAL: This is a 64-year-old male in no apparent distress at the time of my examination. Right-sided weakness secondary to CVA in the past. HEENT: Head is atraumatic, normocephalic. Pupils are equal, round. Sclerae anicteric. Conjunctivae are clear. Mucous membranes of the mouth are moist. Neck is supple. There is no jugular venous distention. No carotid bruit is heard. LUNGS: Clear to auscultation no wheezes, rales or rhonchi. No chest wall tenderness is noted on palpation or with deep breathing. HEART: Regular rate and rhythm without murmurs, rubs or gallops. S1 and S2 heard. EXTREMITIES: No evidence of peripheral edema and no calf tenderness noted. ASSESSMENT Acute GI bleed Recent multi-vessel angioplasty maintained on dual anti-platelet therapy Coronary artery disease Hypertension Dyslipidemia History of CVA PLAN Dr. Sparks spoke directly with Dr. Orosco and discussed the possibility of another scope. He states there was thought to be a mucosal tear that could be contributing to the bleeding. Recommend surgical evaluation. Continue to hold aspirin and plavix. Follow hgb/hct trend. Nurse Practitioner note has been reviewed, I agree with a documented findings and plan of care. Patient was seen and examined. Objective - Vital Signs Vital signs: Vital Signs Temp 97.1 F L 05/06/19 06:21 Pulse 59 L 05/06/19 06:21 Resp 16 05/06/19 06:21 BP 112/58 05/06/19 06:21 Pulse Ox 100 05/06/19 06:21 Intake & Output 05/05/19 05/06/19 05/06/19 18:59 06:59 18:59 Output Total 1800 Balance -1800 Output: Urine 1800 Other: # Voids 4 # Bowel Movements 5 1 - Labs CBC & Chem 7: 05/06/19 05:31 05/01/19 06:29 Labs: Abnormal Lab Results - Last 24 Hours (Table) 05/05/19 05/06/19 Range/Units 17:53 05:31 RBC 3.40 L 2.91 L (4.30-5.90) m/uL Hgb 8.9 L 7.6 L (13.0-17.5) gm/dL Hct 28.8 L 24.2 L (39.0-53.0) %
--- NOTE | 2019-05-06 14:23 | P.PN ---
Subjective Progress Note Date: 05/06/19 CHIEF COMPLAINT: rectal bleeding HISTORY OF PRESENT ILLNESS: Patient examined at the bedside. patient denies abdominal pain. Patient's hemoglobin today is 7.6, down from 8.9. Plavix and aspirin remain on hold. Patient reports two stools today that were brown in color with bright red blood dripping from rectum after his BM. PHYSICAL EXAM: VITAL SIGNS: Reviewed. GENERAL: Well-developed in no acute distress. HEENT: No sclera icterus. Extraocular movements grossly intact. Moist buccal mucosa. Head is atraumatic, normocephalic. ABDOMEN: Soft. Nondistended. Nontender. NEUROLOGIC: Alert and oriented. Cranial nerves II through XII grossly intact. ASSESSMENT: 1. Acute lower GI bleed 2. Acute blood loss anemia 3. C. difficile colitis PLAN: Dr. Irwin will perform rectal exam under anesthesia tomorrow. Continue liquid diet today. Nothing by mouth after midnight. Monitor hemoglobin. Nurse practitioner note has been reviewed by physician. Signing provider agrees with the documented findings, assessment, and plan of care. Objective - Vital Signs Vital signs: Vital Signs Temp 97.1 F L 05/06/19 06:21 Pulse 59 L 05/06/19 06:21 Resp 16 05/06/19 06:21 BP 112/58 05/06/19 06:21 Pulse Ox 100 05/06/19 06:21 Intake & Output 05/05/19 05/06/19 05/06/19 18:59 06:59 18:59 Output Total 1800 Balance -1800 Output: Urine 1800 Other: # Voids 4 # Bowel Movements 5 1 - Labs CBC & Chem 7: 05/06/19 05:31 05/01/19 06:29 Labs: Abnormal Lab Results - Last 24 Hours (Table) 05/05/19 05/06/19 Range/Units 17:53 05:31 RBC 3.40 L 2.91 L (4.30-5.90) m/uL Hgb 8.9 L 7.6 L (13.0-17.5) gm/dL Hct 28.8 L 24.2 L (39.0-53.0) %
--- NOTE | 2019-05-06 15:33 | P.PN ---
Subjective Progress Note Date: 05/06/19 Principal diagnosis: This is a 64-year-old male who was admitted with GI bleed that is being closely monitored. Patient states that he was having bright red blood with bowel moveme nts and last episode was yesterday. Patient states that he is currently on aspirin and Plavix for CVA with right side upper and lower involvement that is still currently active. Patient denies any shortness of breath, chest pain, palpitations at this time. Patient is currently still nothing by mouth. Patient denies any abdominal pain just having some mild cramping at times. Patient denies any nausea or vomiting at this time patient is afebrile. Awaiting gastric consult at this time. 04/28/2019 This is a 64-year-old male who was admitted with acute GI bleed that is being closely monitored. Patient did have a lot of loose bowel movements last night and some this morning that did not have any blood in them. Around 11 AM today the patient experienced 2 loose bowel movements with large amounts of bright red blood noted. Patient's stool culture also tested positive for C. diff and is currently being monitored with GI. Patient is starting oral vanco today. Currently we are still holding his aspirin and Plavix as he is active bleeding rectally again. Patient is currently not a candidate for a scope with GI due to the C. diff until the infection is cleared. Patient denies having any nausea, or vomiting and denies any stomach pain at this time. Patient is afebrile. Repeat CBC done this afternoon shows a hemoglobin of 9.2. Per GI they will be ordering a tagged RBC scan as he is still actively bleeding. Patient is currently on a clear liquid diet and tolerating well. 04/29/19 Overnight patient was moved from his previous floor to the ICU for closer monitoring due to an increase in the amount of blood in the stool. Patient is currently at the side of the bed getting up with assistance due to his history of CVA with right side deficits to the bedside commode. This will be the second loose bowel movement with patricia red blood noted in a small amount. Hemoglobin is currently stable at 8.8. Patient denies any shortness of breath, chest pain, palpitations, nausea, or vomiting at this time. Patient denies any abdominal pain and is afebrile. Patient is NPO except ice chips at this time and is scheduled to go for an EGD and colonoscopy in the morning per GI. Patient was positive for cdiff and is being treated with oral vancomycin. Patient will be monitored closely of vitals and labs. 04/30/2019 Patient is sitting up in bed in no acute distress. Patient did have a clear liquid diet this morning and tolerated well. Patient did complete bowel prep with GoLYTELY overnight and is scheduled for an EGD and colonoscopy this morning with GI. Patient denies any abdominal pain, nausea, vomiting. Patient states that his bowel movements are still liquid and almost clear with no new bright red blood noted at this time. Patient remains afebrile. Patient denies any chest pain, shortness of breath, or palpitations at this time. Anticoagulation is still being held until after the procedures this afternoon. Will continue to monitor closely. Vital signs are stable. Current hemoglobin is 8.5. Patient is hemodynamically stable. Patient is going to have a midline placed today due to poor IV access. Patient refusing all IV access in the right side as he has a history of CVA with deficits on the right. 05/01/2019 Patient is sitting up in recliner in no acute distress. Patient states he is having some blood noted in his bowel movements that are dark with clots noted. Hemoglobin is stable at this time at 9.3. Patient is hemodynamically stable. Patient denies any abdominal pain, nausea, or vomiting at this time. Patient is afebrile. Vital signs are stable. Patient currently denies any chest pain, shortness of breath, or palpitations at this time. Anticoagulation of aspirin and Plavix will be resumed this evening. We will continue to monitor closely. Patient is awaiting for rehab placement at [facility] and is scheduled to go tomorrow morning. 05/04/19 Patient is sitting up in recliner watching TV eating a banana in no acute distress. Patient just finished having a large formed bowel movement and had some bright red blood noted at 100cc in the bedside commode. Patient denies any pain, nausea, vomiting, or diarrhea at this time. Patient is afebrile. Vital signs are stable. Hgb rechecked this am and is 8.2 currently. Patient has been taking his aspirin and plavix. Patient was to be discharged to [facility] over the weekend but they weren't aware of his cdiff. Patient has one more day of oral Vanco for this. GI was reconsulted for this acute GI bleed. Patient is being closely monitored. Will continue to monitor vital signs and labs. Patient denies any shortness of breath, chest pain, or palpitations at this time. 05/05/2019 Patient is sitting up in the recliner in no acute distress eating a clear liquid diet and tolerating. Patient states that he had another bowel movement today with bright red blood noted and formed brown stool. GI and surgery are following. CBCs are being monitored closely this acute blood loss. At this time aspirin and Plavix are being held and will resume Plavix in 3 days provided the patient is hemodynamically stable. Patient denies any abdominal pain, na usea, or vomiting. Patient denies any chest pain, shortness of breath, or palpitations at this time. Patient's vital signs are stable and patient remains afebrile. Patient completed his oral Vanco course of antibiotics for his C. diff. We will continue to monitor closely. 05/06/2019 Patient is currently on the commode having a bowel movement. The bowel movement was brown and formed with bright red blood noted with wiping. Patient is in no acute distress. Patient denies any abdominal pain, nausea, vomiting, or diarrhea at this time. Patient denies any chest pain, shortness of breath, palpitations, dizziness, or lightheadedness at this time. Patient is hemodynamically stable. current hemoglobin is 7.6 down from 8.9 yesterday. Will continue to monitor cbc and vitals closely. Surgery was consulted and patient will be put back on clear liquid diet and NPO after midnight and will be performing a rectal exam under anesthesia tomorrow. During the colonoscopy last week, Dr. Orosco stated that there was a fold near the rectosigmoid junction that appeared to be fissure-like. Bleeding may possibly be occurring from this fold. Plavix and aspirin being held at this time. Cardiology is following as well. Objective - Vital Signs Vital signs: Vital Signs Temp 97.1 F L 05/06/19 06:21 Pulse 59 L 05/06/19 06:21 Resp 16 05/06/19 06:21 BP 112/58 05/06/19 06:21 Pulse Ox 100 05/06/19 06:21 Intake & Output 05/05/19 05/06/19 05/06/19 18:59 06:59 18:59 Output Total 1800 Balance -1800 Output: Urine 1800 Other: # Voids 4 # Bowel Movements 5 1 - Exam Gen: This is a 64-year-old male sitting up in recliner in no acute distress. Vital signs are stable BP is 112/58, pulse is 59, respirations are 15 and non- labored, temp is 97.1 F, and oxygen saturation is 100 % on room air. HEENT: Head is atraumatic, normocephalic. Pupils equal, round. Sclerae is anicteric. Oral mucosa is pale but moist NECK: Supple. No JVD. No lymphadenopathy. No thyromegaly. LUNGS: Clear to auscultation. No wheezes or rhonchi. No intercostal retractions. HEART: Regular rate and rhythm. No murmur. ABDOMEN: Soft. Bowel sounds are present. No masses. No tenderness. EXTREMITIES: No pedal edema. No calf tenderness. Right lower extremity brace noted NEUROLOGICAL: Patient is awake, alert and oriented x3. Cranial nerves 2 through 12 are grossly intact. Right side weakness of the upper and lower extremities from history of CVA. - Labs CBC & Chem 7: 05/06/19 05:31 05/01/19 06:29 Labs: Abnormal Lab Results - Last 24 Hours (Table) 05/05/19 05/06/19 Range/Units 17:53 05:31 RBC 3.40 L 2.91 L (4.30-5.90) m/uL Hgb 8.9 L 7.6 L (13.0-17.5) gm/dL Hct 28.8 L 24.2 L (39.0-53.0) % Assessment and Plan Assessment: Acute lower GI bleed: Either hemorrhoidal or diverticular. EGD and colonoscopy was done last week. Biopsies are pending. Aspirin and Plavix are being held for 3 days due to bright red blood noted with each bowel movement in the morning. CBCs are being monitored. Current Hgb is 7.6 down from 8.9 yesterday. Patient is hemodynamically stable. GI is following. 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 Will continue to monitor. Seizure disorder Coronary artery disease with cardiac catheterization and stent to the RCA in February 2019. Cardiology is following. Aspirin and Plavix are being held due to the rectal bleeding. Cardiology is following closely and will discuss the case tomorrow after surgical evaluation to possibly resume the Plavix 75 mg daily. GI prophylaxis Clostridium difficile on 04/28/19: currently treating with oral vancomycin Recommendations and discussion: Recommend to continue current medications and continue symptomatic treatment. Patient's hemoglobin is 7.6. He will be closely monitored. We'll continue to monitor labs and vital signs. May transfuse 1 unit of PRBC if hgb is under 7. Guarded prognosis. Further recommendations to follow. Will await surgical report in the a.m. Cardiology is following as well. Possible discharge in 24-48 hours to [facility]. Arrangements have been made. Case management is following.
[2019-05-06 15:48] LABS: HCT 28.8 % (39.0-53.0); Hypochromasia Marked; MCH 26.5 pg (25.0-35.0); MCHC 31.4 g/dL (31.0-37.0); MCV 84.5 fL (80.0-100.0); Mean Platelet Volume 7.3; Platelet Count 324 k/uL (150-450); Poikilocytosis Moderate; RBC 3.41 m/uL (4.30-5.90); RDW 14.8 % (11.5-15.5); WBC 8.9 k/uL (3.8-10.6)
[2019-05-06] MEDS: VANCOMYCIN ORAL SOLUTION 250 MG/5 ML BOTTLE PO SCH (17:16)
[2019-05-06] MEDS: CHERRY FLAVOR 60 ML BOTTLE PO PRN (17:17)
[2019-05-06] MEDS: CHOLECALCIFEROL 1,000 UNIT TAB PO SCH (21:30)
[2019-05-06] MEDS: MAGNESIUM OXIDE 400 MG TAB PO SCH (21:30)
[2019-05-07] MEDS: VANCOMYCIN ORAL SOLUTION 250 MG/5 ML BOTTLE PO SCH ×5 (00:18→23:06)
[2019-05-07] MEDS: CHERRY FLAVOR 60 ML BOTTLE PO PRN ×4 (00:18→17:30)
--- NOTE | 2019-05-07 00:32 | P.PN ---
Subjective Progress Note Date: 05/06/19 Principal diagnosis: Hematochezia Patient seen lying in bed, tolerating diet. No abdominal pain. He is having brown bowel movements with some blood streaking. Objective - Vital Signs Vital signs: Vital Signs Temp 97.1 F L 05/06/19 06:21 Pulse 59 L 05/06/19 06:21 Resp 16 05/06/19 06:21 BP 112/58 05/06/19 06:21 Pulse Ox 100 05/06/19 06:21 Intake & Output 05/05/19 05/06/19 05/06/19 18:59 06:59 18:59 Output Total 1800 Balance -1800 Output: Urine 1800 Other: # Voids 4 # Bowel Movements 5 1 - Exam On physical examination, patient appears comfortable in no apparent distress. HEAD: Normocephalic, atraumatic. EYES: No scleral icterus. No conjunctival injection. MOUTH: No lesions, tongue midline. NECK: Trachea midline, no gross abnormalities. CHEST: Clear to auscultation with no wheezing or rhonchi appreciated. HEART: S1-S2 appreciated. ABDOMEN: Soft, obese. Bowel sounds are positive. No organomegaly. No guarding or rigidity. EXTREMITIES: No pedal edema. SKIN: No rashes, no jaundice. NEUROLOGIC: Alert and oriented x3. Digital right-sided weakness status post CVA. - Labs CBC & Chem 7: 05/06/19 15:28 05/01/19 06:29 Labs: Abnormal Lab Results - Last 24 Hours (Table) 05/05/19 05/06/19 Range/Units 17:53 05:31 RBC 3.40 L 2.91 L (4.30-5.90) m/uL Hgb 8.9 L 7.6 L (13.0-17.5) gm/dL Hct 28.8 L 24.2 L (39.0-53.0) % Assessment and Plan (1) Anemia due to blood loss, acute Narrative/Plan: 64-year-old male with history of CVA maintained on Plavix therapy who presented to the hospital due to bright red blood per rectum. This has been going on for the past 6 months but has increased prior to presentation with the patient reporting 2-3 bowel movements per day with gross blood in the toilet. Denies any prior history of GI bleed, nausea or vomiting, coffee-ground emesis or melena. EGD performed in significant for gastritis with biopsies taken, and colonoscopy significant for polypectomy, diverticulosis, internal hemorrhoids as well as what appeared to be mucosal abnormality consistent with tear/fissure in the distal rectum/anal region. Current Visit: Yes Status: Acute Code(s): D62 - ACUTE POSTHEMORRHAGIC ANEMIA SNOMED Code(s): 816187411 (2) History of CVA with residual deficit Current Visit: Yes Status: Acute Code(s): I69.30 - UNSPECIFIED SEQUELAE OF CEREBRAL INFARCTION SNOMED Code(s): 209017994 (3) GI bleed Current Visit: Yes Status: Acute Code(s): K92.2 - GASTROINTESTINAL HEMORRHAGE, UNSPECIFIED SNOMED Code(s): 31659938 Plan: Supportive care Okay for liquids, nothing by mouth after midnight Continue to monitor hemoglobin and transfuse as needed Continue to hold antiplatelet therapy The case was discussed with the cardiology and surgical services, at this time plan is for rectal exam under anesthesia tomorrow Thank you for allowing us to participate in the care of the patient we will continue to monitor
[2019-05-07] MEDS ORDERED: NA PHOS,M-B/NA PHOS,DI-BA 133 ML ENEMA RECTAL ONE (06:00)
[2019-05-07] MEDS: LISINOPRIL 20 MG TAB PO SCH (09:18)
[2019-05-07] MEDS: CARVEDILOL 3.125 MG TAB PO SCH ×2 (09:18→17:30)
[2019-05-07 10:02] LABS: HCT 25.4 % (39.0-53.0); Hypochromasia Moderate; MCHC 31.6 g/dL (31.0-37.0); MCV 82.1 fL (80.0-100.0); Mean Platelet Volume 6.9; Platelet Count 265 k/uL (150-450); Poikilocytosis Slight; WBC 6.7 k/uL (3.8-10.6)
[2019-05-07] MEDS ORDERED: LACTATED RINGERS 1,000 ML IV ONE (11:06)
[2019-05-07] MEDS: PANTOPRAZOLE 40 MG TABLET PO SCH (11:29)
[2019-05-07] MEDS: levETIRAcetam 500 MG TAB PO SCH ×2 (11:29→17:31)
[2019-05-07] MEDS ORDERED: LIDOCAINE 1% INJ 10MG/ML (20 ML MDV) ONE (11:33)
[2019-05-07] MEDS ORDERED: MIDAZOLAM 2 MG/2 ML VIAL ONE (11:33)
[2019-05-07] MEDS ORDERED: KETAMINE 10 MG/ML 20 ML VIAL ONE (11:33)
[2019-05-07] MEDS ORDERED: fentaNYL (PF) 50 MCG/ML 2 ML AMP ONE (11:33)
[2019-05-07] MEDS ORDERED: PROPOFOL 10 MG/ML 20 ML VIAL IV ONE (11:33)
[2019-05-07] MEDS ORDERED: GLYCOPYRROLATE 0.2 MG/ML 2 ML VIAL ONE (11:33)
[2019-05-07] MEDS ORDERED: BUPIVACAINE (PF) 0.5% 30 ML VIAL SQ ONE (12:03)
--- NOTE | 2019-05-07 12:14 | P.OP ---
Date of Procedure: 05/07/19 Preoperative Diagnosis: Anal bleeding Postoperative Diagnosis: No evidence of any anal/rectal bleeding Significant internal and external hemorrhoids Procedure(s) Performed: Anal exam under anesthesia Anesthesia: MAC Surgeon: Shane Irwin Pathology: none sent Condition: stable Disposition: PACU Description of Procedure: The patient's placed on the operating table in the prone position. He received IV sedation. Digital rectal exam was performed which revealed internal and external hemorrhoids. The anal retractors placed anus. In the anus was examined. There is no evidence of any bleeding. There is no evidence of any anal fissures. The patient had a large fleshy external hemorrhoids and internal hemorrhoids. There is known to any active bleeding. The anus was rechecked with a single valve anal retractor and once again no source of bleeding could be found. The patient has significant internal and external hemorrhoids. He may need a hemorrhoidectomy in the future. Patient was sent to recovery in stable condition.
--- NOTE | 2019-05-07 12:28 | P.PN ---
Subjective Progress Note Date: 05/07/19 Principal diagnosis: This is a 64-year-old male who was admitted with GI bleed that is being closely monitored. Patient states that he was having bright red blood with bowel moveme nts and last episode was yesterday. Patient states that he is currently on aspirin and Plavix for CVA with right side upper and lower involvement that is still currently active. Patient denies any shortness of breath, chest pain, palpitations at this time. Patient is currently still nothing by mouth. Patient denies any abdominal pain just having some mild cramping at times. Patient denies any nausea or vomiting at this time patient is afebrile. Awaiting gastric consult at this time. 04/28/2019 This is a 64-year-old male who was admitted with acute GI bleed that is being closely monitored. Patient did have a lot of loose bowel movements last night and some this morning that did not have any blood in them. Around 11 AM today the patient experienced 2 loose bowel movements with large amounts of bright red blood noted. Patient's stool culture also tested positive for C. diff and is currently being monitored with GI. Patient is starting oral vanco today. Currently we are still holding his aspirin and Plavix as he is active bleeding rectally again. Patient is currently not a candidate for a scope with GI due to the C. diff until the infection is cleared. Patient denies having any nausea, or vomiting and denies any stomach pain at this time. Patient is afebrile. Repeat CBC done this afternoon shows a hemoglobin of 9.2. Per GI they will be ordering a tagged RBC scan as he is still actively bleeding. Patient is currently on a clear liquid diet and tolerating well. 04/29/19 Overnight patient was moved from his previous floor to the ICU for closer monitoring due to an increase in the amount of blood in the stool. Patient is currently at the side of the bed getting up with assistance due to his history of CVA with right side deficits to the bedside commode. This will be the second loose bowel movement with patricia red blood noted in a small amount. Hemoglobin is currently stable at 8.8. Patient denies any shortness of breath, chest pain, palpitations, nausea, or vomiting at this time. Patient denies any abdominal pain and is afebrile. Patient is NPO except ice chips at this time and is scheduled to go for an EGD and colonoscopy in the morning per GI. Patient was positive for cdiff and is being treated with oral vancomycin. Patient will be monitored closely of vitals and labs. 04/30/2019 Patient is sitting up in bed in no acute distress. Patient did have a clear liquid diet this morning and tolerated well. Patient did complete bowel prep with GoLYTELY overnight and is scheduled for an EGD and colonoscopy this morning with GI. Patient denies any abdominal pain, nausea, vomiting. Patient states that his bowel movements are still liquid and almost clear with no new bright red blood noted at this time. Patient remains afebrile. Patient denies any chest pain, shortness of breath, or palpitations at this time. Anticoagulation is still being held until after the procedures this afternoon. Will continue to monitor closely. Vital signs are stable. Current hemoglobin is 8.5. Patient is hemodynamically stable. Patient is going to have a midline placed today due to poor IV access. Patient refusing all IV access in the right side as he has a history of CVA with deficits on the right. 05/01/2019 Patient is sitting up in recliner in no acute distress. Patient states he is having some blood noted in his bowel movements that are dark with clots noted. Hemoglobin is stable at this time at 9.3. Patient is hemodynamically stable. Patient denies any abdominal pain, nausea, or vomiting at this time. Patient is afebrile. Vital signs are stable. Patient currently denies any chest pain, shortness of breath, or palpitations at this time. Anticoagulation of aspirin and Plavix will be resumed this evening. We will continue to monitor closely. Patient is awaiting for rehab placement at [facility] and is scheduled to go tomorrow morning. 05/04/19 Patient is sitting up in recliner watching TV eating a banana in no acute distress. Patient just finished having a large formed bowel movement and had some bright red blood noted at 100cc in the bedside commode. Patient denies any pain, nausea, vomiting, or diarrhea at this time. Patient is afebrile. Vital signs are stable. Hgb rechecked this am and is 8.2 currently. Patient has been taking his aspirin and plavix. Patient was to be discharged to [facility] over the weekend but they weren't aware of his cdiff. Patient has one more day of oral Vanco for this. GI was reconsulted for this acute GI bleed. Patient is being closely monitored. Will continue to monitor vital signs and labs. Patient denies any shortness of breath, chest pain, or palpitations at this time. 05/05/2019 Patient is sitting up in the recliner in no acute distress eating a clear liquid diet and tolerating. Patient states that he had another bowel movement today with bright red blood noted and formed brown stool. GI and surgery are following. CBCs are being monitored closely this acute blood loss. At this time aspirin and Plavix are being held and will resume Plavix in 3 days provided the patient is hemodynamically stable. Patient denies any abdominal pain, na usea, or vomiting. Patient denies any chest pain, shortness of breath, or palpitations at this time. Patient's vital signs are stable and patient remains afebrile. Patient completed his oral Vanco course of antibiotics for his C. diff. We will continue to monitor closely. 05/06/2019 Patient is currently on the commode having a bowel movement. The bowel movement was brown and formed with bright red blood noted with wiping. Patient is in no acute distress. Patient denies any abdominal pain, nausea, vomiting, or diarrhea at this time. Patient denies any chest pain, shortness of breath, palpitations, dizziness, or lightheadedness at this time. Patient is hemodynamically stable. current hemoglobin is 7.6 down from 8.9 yesterday. Will continue to monitor cbc and vitals closely. Surgery was consulted and patient will be put back on clear liquid diet and NPO after midnight and will be performing a rectal exam under anesthesia tomorrow. During the colonoscopy last week, Dr. Orosco stated that there was a fold near the rectosigmoid junction that appeared to be fissure-like. Bleeding may possibly be occurring from this fold. Plavix and aspirin being held at this time. Cardiology is following as well. 05/07/2019 Patient was currently lying in bed resting but easily arousable. Patient did receive a bowel prep enema and tolerated well with no blood noted per staff radiologist. Patient is going down for a rectal exam under anesthesia in the OR today. Patient was nothing by mouth for the procedure. Patient's current hemoglobin is 8.0 and last night reading was 9.0. Patient denied having any bloody bowel movements last night into this morning. Patient is hemodynamically stable. Patient denies any chest pain, shortness of breath, or palpitations at this time. Patient denies any dizziness or lightheadedness. Patient denies any abdominal discomfort, nausea, vomiting, or diarrhea at this time. Patient remains afebrile. Anticoagulation is still being held at this time and will await cardiology recommendations for resuming the Plavix after today's procedure. Objective - Vital Signs Vital signs: Vital Signs Temp 99.0 F 05/07/19 11:06 Pulse 62 05/07/19 11:06 Resp 18 05/07/19 11:06 BP 130/58 05/07/19 11:06 Pulse Ox 95 05/07/19 11:06 Intake & Output 05/06/19 05/07/19 05/07/19 18:59 06:59 18:59 Intake Total 1000 350 100 Output Total 0 Balance 1000 350 100 Intake: IV 100 Oral 1000 350 Output: Estimated Blood Loss 0 Other: # Voids 4 2 # Bowel Movements 1 1 - Exam Gen: This is a 64-year-old male lying in bed in no acute distress. Vital signs are stable BP is 110/58, pulse is 69, respirations are 18 and non-labored, temp is 97.5 F, and oxygen saturation is 95 % on room air. HEENT: Head is atraumatic, normocephalic. Pupils equal, round. Sclerae is anicteric. Oral mucosa is moist NECK: Supple. No JVD. No lymphadenopathy. No thyromegaly. LUNGS: Clear to auscultation. No wheezes or rhonchi. No intercostal retractions. HEART: Regular rate and rhythm. No murmur. ABDOMEN: Soft. Bowel sounds are present. No masses. No tenderness. EXTREMITIES: No pedal edema. No calf tenderness. NEUROLOGICAL: Patient is awake, alert and oriented x3. Cranial nerves 2 through 12 are grossly intact. Right side weakness of the upper and lower extremities from history of CVA. - Constitutional General appearance: Present: no acute distress - Labs CBC & Chem 7: 05/07/19 09:09 05/01/19 06:29 Labs: Abnormal Lab Results - Last 24 Hours (Table) 05/06/19 05/07/19 Range/Units 15:28 09:09 RBC 3.41 L 3.10 L (4.30-5.90) m/uL Hgb 9.0 L 8.0 L (13.0-17.5) gm/dL Hct 28.8 L 25.4 L (39.0-53.0) % Assessment and Plan Assessment: Acute lower GI bleed: Either hemorrhoidal or diverticular. EGD and colonoscopy was done last week. Biopsies are pending. Aspirin and Plavix are being held for 3 days due to bright red blood noted with each bowel movement in the morning. CBCs are being monitored. Current Hgb is 8.0 down from 9.0 yesterday. Patient is hemodynamically stable. GI is following. Surgery is currently performing a rectal exam under anesthesia at this time. Will await for report. 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 Will continue to monitor. Seizure disorder Coronary artery disease with cardiac catheterization and stent to the RCA in February 2019. Cardiology is following. Aspirin and Plavix are being held due to the rectal bleeding. Cardiology is following closely and will discuss the case tomorrow after surgical evaluation to possibly resume the Plavix 75 mg daily. GI prophylaxis Clostridium difficile on 04/28/19: currently treating with oral vancomycin Recommendations and discussion: Recommend to continue current medications and continue symptomatic treatment. Patient's hemoglobin is 8.0. He will be closely monitored. We'll continue to monitor labs and vital signs. May transfuse 1 unit of PRBC if hgb is under 7. Guarded prognosis. Further recommendations to follow. Will await surgical report of the rectal exam done today. Cardiology is following as well. Possible discharge in 24-48 hours to [facility]. Arrangements have been made. Case management is following.
[2019-05-07] MEDS ORDERED: HYDROmorphone 0.5 MG/0.5 ML SYRINGE IVP PRN (14:34)
[2019-05-07] MEDS ORDERED: ONDANSETRON 4 MG/2 ML VIAL IVP ONE (14:34)
[2019-05-07] MEDS ORDERED: DEXAMETHASONE SOD PHOSPHATE 10 MG/ML 1 ML VIAL IV ONE (14:34)
[2019-05-07] MEDS: ATORVASTATIN 40 MG TAB PO SCH (14:36)
[2019-05-07] MEDS: LACTATED RINGERS 1,000 ML IV SCH (14:39)
[2019-05-07] MEDS: MAGNESIUM OXIDE 400 MG TAB PO SCH (19:49)
[2019-05-07] MEDS: CHOLECALCIFEROL 1,000 UNIT TAB PO SCH (19:49)
[2019-05-08] MEDS: VANCOMYCIN ORAL SOLUTION 250 MG/5 ML BOTTLE PO SCH ×4 (05:03→23:37)
[2019-05-08] MEDS: PANTOPRAZOLE 40 MG TABLET PO SCH (07:53)
[2019-05-08] MEDS: ATORVASTATIN 40 MG TAB PO SCH (07:53)
[2019-05-08] MEDS: LISINOPRIL 20 MG TAB PO SCH (07:53)
[2019-05-08] MEDS: levETIRAcetam 500 MG TAB PO SCH ×2 (07:54→17:26)
[2019-05-08] MEDS: CARVEDILOL 3.125 MG TAB PO SCH ×2 (07:54→17:26)
[2019-05-08 10:08] LABS: HCT 28.9 % (39.0-53.0); HGB 8.5 gm/dL (13.0-17.5); Hypochromasia Marked; MCH 24.6 pg (25.0-35.0); MCHC 29.3 g/dL (31.0-37.0); Platelet Count 288 k/uL (150-450); Poikilocytosis Slight; RBC 3.45 m/uL (4.30-5.90); RDW 15.2 % (11.5-15.5); WBC 9.5 k/uL (3.8-10.6)
--- NOTE | 2019-05-08 11:50 | P.PN ---
<Queenie Bhat Adri - Last Filed: 05/08/19 11:46> Subjective Progress Note Date: 05/08/19 CHIEF COMPLAINT: rectal bleeding HISTORY OF PRESENT ILLNESS: Patient examined at the bedside. patient denies abdominal pain. Patient underwent rectal exam under anesthesia yesterday with Dr. Irwin revealing significant internal and external hemorrhoids. Patient reports brown bowel movement this morning with some blood upon wiping. Hemoglobin 8.5. PHYSICAL EXAM: VITAL SIGNS: Reviewed. GENERAL: Well-developed in no acute distress. HEENT: No sclera icterus. Extraocular movements grossly intact. Moist buccal mucosa. Head is atraumatic, normocephalic. ABDOMEN: Soft. Nondistended. Nontender. NEUROLOGIC: Alert and oriented. Cranial nerves II through XII grossly intact. ASSESSMENT: 1. Acute lower GI bleed, secondary to hemorrhoids 2. Acute blood loss anemia 3. C. difficile colitis PLAN: Continue diet as tolerated. Begin Colace 100 mg twice a day to prevent constipation. Patient may require hemorrhoidectomy. He is to follow-up with Dr. Irwin on an outpatient basis Patient with recent stent placement to mid and distal circumflex and RCA. Okay to resume Plavix from surgical standpoint. Will defer to cardiology. Continue to monitor hemoglobin and further bleeding once Plavix is resumed. Nurse practitioner note has been reviewed by physician. Signing provider agrees with the documented findings, assessment, and plan of care. Objective - Vital Signs Vital signs: Vital Signs Temp 98.0 F 05/08/19 07:00 Pulse 61 05/08/19 07:00 Resp 17 05/08/19 07:00 BP 105/55 05/08/19 07:00 Pulse Ox 98 05/08/19 07:00 Intake & Output 05/07/19 05/08/19 05/08/19 18:59 06:59 18:59 Intake Total 300 120 Output Total 0 1925 Balance 300 -1805 Intake: IV 300 Intake, IV Titration 0 Amount Lactated Ringers 1,000 ml 0 @ 20 mls/hr IV .Q24H [facility] Rx#:[id number] Oral 120 Output: Urine 1925 Estimated Blood Loss 0 - Labs CBC & Chem 7: 05/08/19 09:32 05/01/19 06:29 Labs: Abnormal Lab Results - Last 24 Hours (Table) 05/08/19 Range/Units 09:32 RBC 3.45 L (4.30-5.90) m/uL Hgb 8.5 L (13.0-17.5) gm/dL Hct 28.9 L (39.0-53.0) % MCH 24.6 L (25.0-35.0) pg MCHC 29.3 L (31.0-37.0) g/dL <Neri Castanon - Last Filed: 05/08/19 16:17> Subjective As above. Patient doing well. Small amount of bleeding with wiping. Continue diet. We'll sign off. Objective - Vital Signs Vital signs: Vital Signs Temp 97.2 F L 05/08/19 15:00 Pulse 62 05/08/19 15:00 Resp 14 05/08/19 15:00 BP 146/80 05/08/19 15:00 Pulse Ox 93 L 05/08/19 15:00 Intake & Output 05/07/19 05/08/19 05/08/19 18:59 06:59 18:59 Intake Total 300 120 Output Total 0 1925 300 Balance 300 -1805 -300 Weight 94.2 kg Intake: IV 300 Intake, IV Titration 0 Amount Lactated Ringers 1,000 ml 0 @ 20 mls/hr IV .Q24H [facility] Rx#:[id number] Oral 120 Output: Urine 1925 300 Estimated Blood Loss 0 Other: # Bowel Movements 2 - Labs CBC & Chem 7: 05/08/19 09:32 05/01/19 06:29 Labs: Abnormal Lab Results - Last 24 Hours (Table) 05/08/19 Range/Units 09:32 RBC 3.45 L (4.30-5.90) m/uL Hgb 8.5 L (13.0-17.5) gm/dL Hct 28.9 L (39.0-53.0) % MCH 24.6 L (25.0-35.0) pg MCHC 29.3 L (31.0-37.0) g/dL
--- NOTE | 2019-05-08 12:00 | P.PN ---
Subjective This is a pleasant 64-year-old male past medical history significant for coronary artery disease status post recent angioplasty maintained on dual antiplatelet therapy. He underwent successful stent placement to the mid and distal circumflex 01/05/2019 and successful stent placement to the RCA 02/19/2019. 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 He presented to the hospital 04/26 with symptoms of bleeding in the stool requiring a blood transfusion. Hgb on admission was 8.0 and ropped to 7.0. He has undergone a colonoscopy per Dr. Orosco revealing mild gastritis, no active bleeding, polypectomy and hemorrhoids. He was resumed on dual anti-platelet therapy. This morning he had an episode of bright red bleeding noted in the stool. Dual antiplatelet therapy was discontinued and we were asked to evaluate the patient. He is seen and examined sitting up in the chair in no acute distress. He denies chest pain, shortness of breath, dizziness or palpitations. No further bleeding since this morning. Blood pressure 118/63 with a heart rate of 56. Laboratory data reviewed, hemoglobin this morning 8.1 yesterday was 8.2. Platelets 306. Currently maintained on carvedilol 3.125 mg twice a day, atorvastatin 40 mg daily and lisinopril 40 mg daily. 05/05/2019 Pt is seen and examined sitting up in the chair. He had a witnessed bright red stool prior to this exam in the commode. There was dark brown loose stool noted with approximately 40% of the stool noted to be bright red and bright red blood noted on the patients brief and on the sanitary napkin. He denies chest pain, shortness of breath, dizziness or palpitations. Blood pressure 125/59 heart rate 61 afebrile maintaining oxygen saturation on room air. Serial hgbs are stable. EKG obtained reveals right bundle branch block with flat T-waves inferiorly and PVC's noted. No acute changes. 05/06/2019 Pt is currently up using the commode having a bowel movement. Per the staff this is his third bowel movement this morning. Each time there is a similar appearance with brown stool and bright red blood on top of the stool with significant amount of bright red blood on the sanitary napkin after wiping. He denies chest pain, shortness of breath, dizziness or palpitations. Laboratory data reviewed, hgb last evening was 8.9 with repeat this morning 7.6. Blood pressure 112/58 heart rate 59 afebrile and maintaining oxygen saturation on room air. Aspirin and plavix continue to be held. 05/08/2019 Hgb has remained stable. He underwent a rectal exam under anesthesia yesterday per Dr. Ramos revealing internal and external hemorrhoids with no active bleeding noted. Blood pressure 105/55 heart rate 61 afebrile and maintaining oxygen saturation on room air. No chest pain, shortness of breath, dizziness or palpitations. GENERAL: This is a 64-year-old male in no apparent distress at the time of my examination. Right-sided weakness secondary to CVA in the past. HEENT: Head is atraumatic, normocephalic. Pupils are equal, round. Sclerae anicteric. Conjunctivae are clear. Mucous membranes of the mouth are moist. Neck is supple. There is no jugular venous distention. No carotid bruit is heard. LUNGS: Clear to auscultation no wheezes, rales or rhonchi. No chest wall tenderness is noted on palpation or with deep breathing. HEART: Regular rate and rhythm without murmurs, rubs or gallops. S1 and S2 heard. EXTREMITIES: No evidence of peripheral edema and no calf tenderness noted. ASSESSMENT Acute GI bleed Recent multi-vessel angioplasty maintained on dual anti-platelet therapy Coronary artery disease Hypertension Dyslipidemia History of CVA PLAN Resume plavix only today. May be discharged on this regimen. Follow up with Dr. Tomlinson in 1 week. CBC in 3 days. Nurse Practitioner note has been reviewed, I agree with a documented findings and plan of care. Patient was seen and examined. Objective - Vital Signs Vital signs: Vital Signs Temp 98.0 F 05/08/19 07:00 Pulse 61 05/08/19 07:00 Resp 17 05/08/19 07:00 BP 105/55 05/08/19 07:00 Pulse Ox 98 05/08/19 07:00 Intake & Output 05/07/19 05/08/19 05/08/19 18:59 06:59 18:59 Intake Total 300 120 Output Total 0 1925 Balance 300 -1805 Intake: IV 300 Intake, IV Titration 0 Amount Lactated Ringers 1,000 ml 0 @ 20 mls/hr IV .Q24H [facility] Rx#:[id number] Oral 120 Output: Urine 1925 Estimated Blood Loss 0 - Labs CBC & Chem 7: 05/08/19 09:32 05/01/19 06:29 Labs: Abnormal Lab Results - Last 24 Hours (Table) 05/08/19 Range/Units 09:32 RBC 3.45 L (4.30-5.90) m/uL Hgb 8.5 L (13.0-17.5) gm/dL Hct 28.9 L (39.0-53.0) % MCH 24.6 L (25.0-35.0) pg MCHC 29.3 L (31.0-37.0) g/dL
[2019-05-08] MEDS: CHERRY FLAVOR 60 ML BOTTLE PO PRN ×3 (12:05→23:41)
[2019-05-08] MEDS: LACTATED RINGERS 1,000 ML IV SCH (16:23)
--- NOTE | 2019-05-08 16:33 | P.PN ---
Subjective Progress Note Date: 05/08/19 Principal diagnosis: This is a 64-year-old male who was admitted with GI bleed that is being closely monitored. Patient states that he was having bright red blood with bowel moveme nts and last episode was yesterday. Patient states that he is currently on aspirin and Plavix for CVA with right side upper and lower involvement that is still currently active. Patient denies any shortness of breath, chest pain, palpitations at this time. Patient is currently still nothing by mouth. Patient denies any abdominal pain just having some mild cramping at times. Patient denies any nausea or vomiting at this time patient is afebrile. Awaiting gastric consult at this time. 04/28/2019 This is a 64-year-old male who was admitted with acute GI bleed that is being closely monitored. Patient did have a lot of loose bowel movements last night and some this morning that did not have any blood in them. Around 11 AM today the patient experienced 2 loose bowel movements with large amounts of bright red blood noted. Patient's stool culture also tested positive for C. diff and is currently being monitored with GI. Patient is starting oral vanco today. Currently we are still holding his aspirin and Plavix as he is active bleeding rectally again. Patient is currently not a candidate for a scope with GI due to the C. diff until the infection is cleared. Patient denies having any nausea, or vomiting and denies any stomach pain at this time. Patient is afebrile. Repeat CBC done this afternoon shows a hemoglobin of 9.2. Per GI they will be ordering a tagged RBC scan as he is still actively bleeding. Patient is currently on a clear liquid diet and tolerating well. 04/29/19 Overnight patient was moved from his previous floor to the ICU for closer monitoring due to an increase in the amount of blood in the stool. Patient is currently at the side of the bed getting up with assistance due to his history of CVA with right side deficits to the bedside commode. This will be the second loose bowel movement with patricia red blood noted in a small amount. Hemoglobin is currently stable at 8.8. Patient denies any shortness of breath, chest pain, palpitations, nausea, or vomiting at this time. Patient denies any abdominal pain and is afebrile. Patient is NPO except ice chips at this time and is scheduled to go for an EGD and colonoscopy in the morning per GI. Patient was positive for cdiff and is being treated with oral vancomycin. Patient will be monitored closely of vitals and labs. 04/30/2019 Patient is sitting up in bed in no acute distress. Patient did have a clear liquid diet this morning and tolerated well. Patient did complete bowel prep with GoLYTELY overnight and is scheduled for an EGD and colonoscopy this morning with GI. Patient denies any abdominal pain, nausea, vomiting. Patient states that his bowel movements are still liquid and almost clear with no new bright red blood noted at this time. Patient remains afebrile. Patient denies any chest pain, shortness of breath, or palpitations at this time. Anticoagulation is still being held until after the procedures this afternoon. Will continue to monitor closely. Vital signs are stable. Current hemoglobin is 8.5. Patient is hemodynamically stable. Patient is going to have a midline placed today due to poor IV access. Patient refusing all IV access in the right side as he has a history of CVA with deficits on the right. 05/01/2019 Patient is sitting up in recliner in no acute distress. Patient states he is having some blood noted in his bowel movements that are dark with clots noted. Hemoglobin is stable at this time at 9.3. Patient is hemodynamically stable. Patient denies any abdominal pain, nausea, or vomiting at this time. Patient is afebrile. Vital signs are stable. Patient currently denies any chest pain, shortness of breath, or palpitations at this time. Anticoagulation of aspirin and Plavix will be resumed this evening. We will continue to monitor closely. Patient is awaiting for rehab placement at [facility] and is scheduled to go tomorrow morning. 05/04/19 Patient is sitting up in recliner watching TV eating a banana in no acute distress. Patient just finished having a large formed bowel movement and had some bright red blood noted at 100cc in the bedside commode. Patient denies any pain, nausea, vomiting, or diarrhea at this time. Patient is afebrile. Vital signs are stable. Hgb rechecked this am and is 8.2 currently. Patient has been taking his aspirin and plavix. Patient was to be discharged to [facility] over the weekend but they weren't aware of his cdiff. Patient has one more day of oral Vanco for this. GI was reconsulted for this acute GI bleed. Patient is being closely monitored. Will continue to monitor vital signs and labs. Patient denies any shortness of breath, chest pain, or palpitations at this time. 05/05/2019 Patient is sitting up in the recliner in no acute distress eating a clear liquid diet and tolerating. Patient states that he had another bowel movement today with bright red blood noted and formed brown stool. GI and surgery are following. CBCs are being monitored closely this acute blood loss. At this time aspirin and Plavix are being held and will resume Plavix in 3 days provided the patient is hemodynamically stable. Patient denies any abdominal pain, na usea, or vomiting. Patient denies any chest pain, shortness of breath, or palpitations at this time. Patient's vital signs are stable and patient remains afebrile. Patient completed his oral Vanco course of antibiotics for his C. diff. We will continue to monitor closely. 05/06/2019 Patient is currently on the commode having a bowel movement. The bowel movement was brown and formed with bright red blood noted with wiping. Patient is in no acute distress. Patient denies any abdominal pain, nausea, vomiting, or diarrhea at this time. Patient denies any chest pain, shortness of breath, palpitations, dizziness, or lightheadedness at this time. Patient is hemodynamically stable. current hemoglobin is 7.6 down from 8.9 yesterday. Will continue to monitor cbc and vitals closely. Surgery was consulted and patient will be put back on clear liquid diet and NPO after midnight and will be performing a rectal exam under anesthesia tomorrow. During the colonoscopy last week, Dr. Orosco stated that there was a fold near the rectosigmoid junction that appeared to be fissure-like. Bleeding may possibly be occurring from this fold. Plavix and aspirin being held at this time. Cardiology is following as well. 05/07/2019 Patient was currently lying in bed resting but easily arousable. Patient did receive a bowel prep enema and tolerated well with no blood noted per nurse staff. Patient is going down for a rectal exam under anesthesia in the OR today. Patient was nothing by mouth for the procedure. Patient's current hemoglobin is 8.0 and last night reading was 9.0. Patient denied having any bloody bowel movements last night into this morning. Patient is hemodynamically stable. Patient denies any chest pain, shortness of breath, or palpitations at this time. Patient denies any dizziness or lightheadedness. Patient denies any abdominal discomfort, nausea, vomiting, or diarrhea at this time. Patient remains afebrile. Anticoagulation is still being held at this time and will await cardiology recommendations for resuming the Plavix after today's procedure. 05/08/2019 Patient is currently sitting up in recliner in no acute distress. Patient underwent a rectal exam under anesthesia yesterday which revealed internal and external hemorrhoids with no active bleeding. Patient denies having any bleeding with bowel movements today. Patient denies having any chest pain, shortness of breath, or palpitations at this time. Patient denies any nausea or vomiting or abdominal discomfort. Patient will be resumed on Plavix per cardiology recommendations. Awaiting for authorization from [facility] for rehab. Patient is hemodynamically stable the last hemoglobin of 8.5. We'll continue to monitor closely. Patient remains afebrile and tolerating diet. Objective - Vital Signs Vital signs: Vital Signs Temp 97.2 F L 05/08/19 15:00 Pulse 62 05/08/19 15:00 Resp 14 05/08/19 15:00 BP 146/80 05/08/19 15:00 Pulse Ox 93 L 05/08/19 15:00 Intake & Output 05/07/19 05/08/19 05/08/19 18:59 06:59 18:59 Intake Total 300 120 Output Total 0 1925 300 Balance 300 -1805 -300 Weight 94.2 kg Intake: IV 300 Intake, IV Titration 0 Amount Lactated Ringers 1,000 ml 0 @ 20 mls/hr IV .[facility] Rx#:[id number] Oral 120 Output: Urine 1925 300 Estimated Blood Loss 0 Other: # Bowel Movements 2 - Exam Gen: This is a 64-year-old male sitting up in the recliner in no acute distress. Vital signs are stable BP is 105/55, pulse is 62, respirations are 17 and non- labored, temp is 98.0F, and oxygen saturation is 98% on room air. HEENT: Head is atraumatic, normocephalic. Pupils equal, round. Sclerae is anicteric. Oral mucosa is moist NECK: Supple. No JVD. No lymphadenopathy. No thyromegaly. LUNGS: Clear to auscultation. No wheezes or rhonchi. No intercostal retractions. HEART: Regular rate and rhythm. No murmur. ABDOMEN: Soft. Bowel sounds are present. No masses. No tenderness. EXTREMITIES: No pedal edema. No calf tenderness. NEUROLOGICAL: Patient is awake, alert and oriented x3. Cranial nerves 2 through 12 are grossly intact. Right side weakness of the upper and lower extremities from history of CVA. - Labs CBC & Chem 7: 05/08/19 09:32 05/01/19 06:29 Labs: Abnormal Lab Results - Last 24 Hours (Table) 05/08/19 Range/Units 09:32 RBC 3.45 L (4.30-5.90) m/uL Hgb 8.5 L (13.0-17.5) gm/dL Hct 28.9 L (39.0-53.0) % MCH 24.6 L (25.0-35.0) pg MCHC 29.3 L (31.0-37.0) g/dL Assessment and Plan Assessment: Acute lower GI bleed: Either hemorrhoidal or diverticular. EGD and colonoscopy was done last week. Biopsies are pending. Aspirin and Plavix are being held for 3 days due to bright red blood noted with each bowel movement in the morning. CBCs are being monitored. Current Hgb is 8.5. Patient is hemodynamically stable. GI is following. Surgery performed a rectal exam under anesthesia yesterday showing internal and external hemorrhoids with no active bleeding. Plavix is being restarted today and we'll continue to monitor per cardiology. 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 Will continue to monitor. Seizure disorder Coronary artery disease with cardiac catheterization and stent to the RCA in February 2019. Cardiology is following. Plavix 75 mg daily will be resumed today GI prophylaxis Clostridium difficile on 04/28/19: currently treating with oral vancomycin Recommendations and discussion: Recommend to continue current medications and continue symptomatic treatment. Patient's hemoglobin is 8.5. He will be closely monitored. We'll continue to monitor labs and vital signs. Guarded prognosis. Further recommendations to follow. Cardiology is following as well. Possible discharge [facility]. Authorization is pending and awaiting approval. Arrangements have been made. Case management is following.
[2019-05-08] MEDS: CLOPIDOGREL 75 MG TAB PO SCH (17:26)
[2019-05-08] MEDS: CHOLECALCIFEROL 1,000 UNIT TAB PO SCH (21:40)
[2019-05-08] MEDS: MAGNESIUM OXIDE 400 MG TAB PO SCH (21:40)
[2019-05-08] MEDS: DOCUSATE 100 MG CAP PO SCH (21:40)
--- NOTE | 2019-05-08 22:32 | P.PN ---
Subjective Progress Note Date: 05/08/19 Principal diagnosis: Hematochezia Patient seen lying in bed, tolerating diet. No abdominal pain. He is having brown bowel movements with some blood streaking, with hemoglobin stable at 8.5 today. Objective - Vital Signs Vital signs: Vital Signs Temp 97.2 F L 05/08/19 15:00 Pulse 62 05/08/19 15:00 Resp 14 05/08/19 15:00 BP 146/80 05/08/19 15:00 Pulse Ox 93 L 05/08/19 15:00 Intake & Output 05/08/19 05/08/19 05/09/19 06:59 18:59 06:59 Intake Total 120 Output Total 1925 300 Balance -1805 -300 Weight 94.2 kg Intake: Oral 120 Output: Urine 1925 300 Other: # Bowel Movements 2 - Exam On physical examination, patient appears comfortable in no apparent distress. HEAD: Normocephalic, atraumatic. EYES: No scleral icterus. No conjunctival injection. MOUTH: No lesions, tongue midline. NECK: Trachea midline, no gross abnormalities. CHEST: Clear to auscultation with no wheezing or rhonchi appreciated. HEART: S1-S2 appreciated. ABDOMEN: Soft, obese. Bowel sounds are positive. No organomegaly. No guarding or rigidity. EXTREMITIES: No pedal edema. SKIN: No rashes, no jaundice. NEUROLOGIC: Alert and oriented x3. Digital right-sided weakness status post CVA. - Labs CBC & Chem 7: 05/08/19 09:32 05/01/19 06:29 Labs: Abnormal Lab Results - Last 24 Hours (Table) 05/08/19 Range/Units 09:32 RBC 3.45 L (4.30-5.90) m/uL Hgb 8.5 L (13.0-17.5) gm/dL Hct 28.9 L (39.0-53.0) % MCH 24.6 L (25.0-35.0) pg MCHC 29.3 L (31.0-37.0) g/dL Assessment and Plan (1) Anemia due to blood loss, acute Narrative/Plan: 64-year-old male with history of CVA maintained on Plavix therapy who presented to the hospital due to bright red blood per rectum. This has been going on for the past 6 months but has increased prior to presentation with the patient reporting 2-3 bowel movements per day with gross blood in the toilet. Denies any prior history of GI bleed, nausea or vomiting, coffee-ground emesis or melena. EGD performed in significant for gastritis with biopsies taken, and colonoscopy significant for polypectomy, diverticulosis, internal hemorrhoids as well as what appeared to be mucosal abnormality consistent with tear/fissure in the distal rectum/anal region however exam under anesthesia by surgical service was only significant for internal and external hemorrhoids. Current Visit: Yes Status: Acute Code(s): D62 - ACUTE POSTHEMORRHAGIC ANEMIA SNOMED Code(s): 621384895 (2) History of CVA with residual deficit Current Visit: Yes Status: Acute Code(s): I69.30 - UNSPECIFIED SEQUELAE OF CEREBRAL INFARCTION SNOMED Code(s): 579549035 (3) GI bleed Current Visit: Yes Status: Acute Code(s): K92.2 - GASTROINTESTINAL HEMORRHAGE, UNSPECIFIED SNOMED Code(s): 37183487 Plan: Supportive care Okay for low residual diet Continue to monitor hemoglobin and transfuse as needed Antiplatelet therapy resumed We'll start Anusol twice a day, can treat for duration of 14 days for hemorrhoidal therapy Thank you for allowing us to participate in the care of the patient to gastroenterology service will stand by, please call us back with any questions or concerns
[2019-05-08] MEDS: HYDROCORTISONE SUPPOSITORY 25 MG SUPP RECTAL SCH (23:50)
[2019-05-09] MEDS: CHERRY FLAVOR 60 ML BOTTLE PO PRN ×2 (06:16→11:18)
[2019-05-09] MEDS: VANCOMYCIN ORAL SOLUTION 250 MG/5 ML BOTTLE PO SCH ×3 (06:16→17:06)
[2019-05-09] MEDS: PANTOPRAZOLE 40 MG TABLET PO SCH (07:38)
[2019-05-09] MEDS: CLOPIDOGREL 75 MG TAB PO SCH (07:38)
[2019-05-09] MEDS: levETIRAcetam 500 MG TAB PO SCH ×2 (07:38→17:06)
[2019-05-09] MEDS: CARVEDILOL 3.125 MG TAB PO SCH ×2 (07:38→17:06)
[2019-05-09] MEDS: LISINOPRIL 20 MG TAB PO SCH (07:38)
[2019-05-09] MEDS: ATORVASTATIN 40 MG TAB PO SCH (07:38)
[2019-05-09] MEDS: HYDROCORTISONE SUPPOSITORY 25 MG SUPP RECTAL SCH ×2 (07:39→20:58)
[2019-05-09] MEDS: DOCUSATE 100 MG CAP PO SCH ×2 (07:39→20:58)
[2019-05-09 11:48] LABS: HCT 27.6 % (39.0-53.0); HGB 8.5 gm/dL (13.0-17.5); Hypochromasia Marked; MCH 26.3 pg (25.0-35.0); MCHC 30.8 g/dL (31.0-37.0); MCV 85.4 fL (80.0-100.0); Mean Platelet Volume 7.1; Platelet Count 278 k/uL (150-450); Poikilocytosis Moderate; RBC 3.23 m/uL (4.30-5.90); RDW 14.7 % (11.5-15.5); WBC 9.5 k/uL (3.8-10.6)
[2019-05-09] MEDS: LACTATED RINGERS 1,000 ML IV SCH (12:35)
[2019-05-09] MEDS: CHOLECALCIFEROL 1,000 UNIT TAB PO SCH (20:58)
[2019-05-09] MEDS: MAGNESIUM OXIDE 400 MG TAB PO SCH (20:58)
--- NOTE | 2019-05-09 21:13 | PN ---
PROGRESS NOTE DATE OF SERVICE: 05/09/2019 DATE OF SERVICE: This 64-year-old gentleman who was admitted with significant medical issues including acute lower GI bleed also had hemorrhoids. The patient also had recent stents. Plavix has been initiated at this time. Hemoglobin is stable. No chest pain. No palpitations. The most recent hemoglobin is 8.5 today. PHYSICAL EXAM: Alert and oriented x3. Pulse is 56. Blood pressure 126/67, respiration 16, temperature 97.4, pulse ox 99% on room air. HEENT: Conjunctivae pale. NECK: No JVD. CARDIOVASCULAR: S1, S2 muffled. RESPIRATIONS: Breath sounds diminished in the bases. No rhonchi. No crackles. ABDOMEN soft, nontender. No mass palpable. LEGS: No edema. No swelling. CENTRAL NERVOUS SYSTEM: No focal deficits. LABS: WBC 9.2, hemoglobin is 8.5. ASSESSMENT: 1. Acute lower gastrointestinal bleed, possibly from hemorrhoidal or diverticular, status post . 2. History of cerebrovascular accident with residual weakness on the right upper and lower extremity with contractures. 3. Hyperlipidemia. 4. History of hypertension. 5. Seizure disorder. 6. History of coronary artery disease/ stent. 7. Acute C difficile colitis. 8. Gastrointestinal prophylaxis. RECOMMENDATIONS AND DISCUSSION: In this 64-year-old gentleman who presented with multiple medical issues, at this time, I recommend to continue current medications, management and symptomatic treatment. Continue with the Plavix. Watch for any bleeding. Hemoglobin is stable currently. I would recommend repeat labs tomorrow. Closely follow with multiple consultants. Guarded prognosis because of multiple complex medical issues. If the patient's hemoglobin is stable, the patient might be able to go home probably on Saturday. MMODL / IJN: [id number] /
[2019-05-10] MEDS: VANCOMYCIN ORAL SOLUTION 250 MG/5 ML BOTTLE PO SCH ×4 (00:46→16:53)
[2019-05-10] MEDS: LISINOPRIL 20 MG TAB PO SCH (07:31)
[2019-05-10] MEDS: CLOPIDOGREL 75 MG TAB PO SCH (07:31)
[2019-05-10] MEDS: CARVEDILOL 3.125 MG TAB PO SCH ×2 (07:31→16:48)
[2019-05-10] MEDS: PANTOPRAZOLE 40 MG TABLET PO SCH (07:31)
[2019-05-10] MEDS: levETIRAcetam 500 MG TAB PO SCH ×2 (07:31→16:45)
[2019-05-10] MEDS: ATORVASTATIN 40 MG TAB PO SCH (07:31)
[2019-05-10] MEDS: HYDROCORTISONE SUPPOSITORY 25 MG SUPP RECTAL SCH ×2 (07:32→20:32)
[2019-05-10] MEDS: DOCUSATE 100 MG CAP PO SCH ×2 (07:32→20:32)
[2019-05-10 12:32] LABS: HCT 29.2 % (39.0-53.0); HGB 8.8 gm/dL (13.0-17.5); Hypochromasia Marked; MCH 24.9 pg (25.0-35.0); MCV 82.9 fL (80.0-100.0); Mean Platelet Volume 7.1; Platelet Count 285 k/uL (150-450); Poikilocytosis Slight; RBC 3.52 m/uL (4.30-5.90); RDW 15.2 % (11.5-15.5); WBC 10.6 k/uL (3.8-10.6)
[2019-05-10] MEDS: LACTATED RINGERS 1,000 ML IV SCH (13:28)
[2019-05-10] MEDS: CHERRY FLAVOR 60 ML BOTTLE PO PRN (16:49)
[2019-05-10] MEDS: MAGNESIUM OXIDE 400 MG TAB PO SCH (20:32)
[2019-05-10] MEDS: CHOLECALCIFEROL 1,000 UNIT TAB PO SCH (20:32)
--- NOTE | 2019-05-10 20:40 | PN ---
PROGRESS NOTE DATE OF SERVICE: 05/10/2019 This 64-year-old gentleman who was admitted with acute lower GI bleed, possibly from hemorrhoidal or diverticular source had an examination under anesthesia. The patient is restarted on Plavix because of concerns of recent stents. Patient came with significant GI bleed. The patient being closely monitored at this time. Once the patient is stable, patient will be ready to be discharged to [facility]. Multiple consultants including surgery, Gastroenterology and as well as cardiology are following the patient closely. No chest pain. No palpitations. No fever. PHYSICAL EXAM: Alert and oriented x3. Pulse is 58, blood pressure 124/70, respirations 16, temperature 97.3. Pulse ox 100 percent on room air. HEENT: Conjunctivae pale. NECK: No JVD. CARDIOVASCULAR: S1, S2 muffled. RESPIRATORY: Breath sounds diminished in the bases. No rhonchi. No crackles. ABDOMEN is soft, nontender. No mass palpable. LEGS no edema. No swelling. CENTRAL NERVOUS SYSTEM: No focal deficits. LAB STUDIES: WBC 10.3, hemoglobin is 8.8. ASSESSMENT: 1. Acute lower gastrointestinal bleeding, possibly from hemorrhoidal diverticular source status post examination under anesthesia. 2. History of cerebrovascular accident with residual weakness with right upper and lower extremity contractures. 3. Hyperlipidemia. 4. Acute blood loss anemia. 5. History of hypertension. 6. History of seizure disorder. 7. History of coronary artery disease/ stent. 8. History of C difficile colitis. 9. Gastrointestinal prophylaxis. RECOMMENDATIONS AND DISCUSSION: Recommend to continue current medications, symptomatic treatment. We will order repeat hemoglobin. If hemoglobin is stable, the patient will be able to be discharged to ECF. Continue the rest of medications. Further recommendations to follow. MMODL / IJN: [id number] /
[2019-05-11] MEDS: VANCOMYCIN ORAL SOLUTION 250 MG/5 ML BOTTLE PO SCH ×5 (00:01→22:51)
[2019-05-11] MEDS: CHERRY FLAVOR 60 ML BOTTLE PO PRN ×3 (06:16→17:36)
[2019-05-11] MEDS: LISINOPRIL 20 MG TAB PO SCH (07:37)
[2019-05-11] MEDS: CARVEDILOL 3.125 MG TAB PO SCH ×2 (07:37→17:36)
[2019-05-11] MEDS: ATORVASTATIN 40 MG TAB PO SCH (07:37)
[2019-05-11] MEDS: DOCUSATE 100 MG CAP PO SCH ×2 (07:37→19:41)
[2019-05-11] MEDS: CLOPIDOGREL 75 MG TAB PO SCH (07:37)
[2019-05-11] MEDS: levETIRAcetam 500 MG TAB PO SCH ×2 (07:37→17:38)
[2019-05-11] MEDS: HYDROCORTISONE SUPPOSITORY 25 MG SUPP RECTAL SCH ×2 (07:37→19:41)
[2019-05-11] MEDS: PANTOPRAZOLE 40 MG TABLET PO SCH (07:37)
[2019-05-11 15:35] LABS: HCT 28.3 % (39.0-53.0); HGB 8.7 gm/dL (13.0-17.5); Hypochromasia Marked; MCH 25.6 pg (25.0-35.0); MCHC 30.8 g/dL (31.0-37.0); Mean Platelet Volume 7.2; Platelet Count 268 k/uL (150-450); Poikilocytosis Slight; RBC 3.41 m/uL (4.30-5.90); RDW 15.5 % (11.5-15.5); WBC 9.4 k/uL (3.8-10.6)
[2019-05-11] MEDS: LACTATED RINGERS 1,000 ML IV SCH (15:47)
--- NOTE | 2019-05-11 16:23 | P.PN ---
Subjective Progress Note Date: 05/11/19 Principal diagnosis: This is a 64-year-old male who was admitted with GI bleed that is being closely monitored. Patient states that he was having bright red blood with bowel moveme nts and last episode was yesterday. Patient states that he is currently on aspirin and Plavix for CVA with right side upper and lower involvement that is still currently active. Patient denies any shortness of breath, chest pain, palpitations at this time. Patient is currently still nothing by mouth. Patient denies any abdominal pain just having some mild cramping at times. Patient denies any nausea or vomiting at this time patient is afebrile. Awaiting gastric consult at this time. 04/28/2019 This is a 64-year-old male who was admitted with acute GI bleed that is being closely monitored. Patient did have a lot of loose bowel movements last night and some this morning that did not have any blood in them. Around 11 AM today the patient experienced 2 loose bowel movements with large amounts of bright red blood noted. Patient's stool culture also tested positive for C. diff and is currently being monitored with GI. Patient is starting oral vanco today. Currently we are still holding his aspirin and Plavix as he is active bleeding rectally again. Patient is currently not a candidate for a scope with GI due to the C. diff until the infection is cleared. Patient denies having any nausea, or vomiting and denies any stomach pain at this time. Patient is afebrile. Repeat CBC done this afternoon shows a hemoglobin of 9.2. Per GI they will be ordering a tagged RBC scan as he is still actively bleeding. Patient is currently on a clear liquid diet and tolerating well. 04/29/19 Overnight patient was moved from his previous floor to the ICU for closer monitoring due to an increase in the amount of blood in the stool. Patient is currently at the side of the bed getting up with assistance due to his history of CVA with right side deficits to the bedside commode. This will be the second loose bowel movement with patricia red blood noted in a small amount. Hemoglobin is currently stable at 8.8. Patient denies any shortness of breath, chest pain, palpitations, nausea, or vomiting at this time. Patient denies any abdominal pain and is afebrile. Patient is NPO except ice chips at this time and is scheduled to go for an EGD and colonoscopy in the morning per GI. Patient was positive for cdiff and is being treated with oral vancomycin. Patient will be monitored closely of vitals and labs. 04/30/2019 Patient is sitting up in bed in no acute distress. Patient did have a clear liquid diet this morning and tolerated well. Patient did complete bowel prep with GoLYTELY overnight and is scheduled for an EGD and colonoscopy this morning with GI. Patient denies any abdominal pain, nausea, vomiting. Patient states that his bowel movements are still liquid and almost clear with no new bright red blood noted at this time. Patient remains afebrile. Patient denies any chest pain, shortness of breath, or palpitations at this time. Anticoagulation is still being held until after the procedures this afternoon. Will continue to monitor closely. Vital signs are stable. Current hemoglobin is 8.5. Patient is hemodynamically stable. Patient is going to have a midline placed today due to poor IV access. Patient refusing all IV access in the right side as he has a history of CVA with deficits on the right. 05/01/2019 Patient is sitting up in recliner in no acute distress. Patient states he is having some blood noted in his bowel movements that are dark with clots noted. Hemoglobin is stable at this time at 9.3. Patient is hemodynamically stable. Patient denies any abdominal pain, nausea, or vomiting at this time. Patient is afebrile. Vital signs are stable. Patient currently denies any chest pain, shortness of breath, or palpitations at this time. Anticoagulation of aspirin and Plavix will be resumed this evening. We will continue to monitor closely. Patient is awaiting for rehab placement at [facility] and is scheduled to go tomorrow morning. 05/04/19 Patient is sitting up in recliner watching TV eating a banana in no acute distress. Patient just finished having a large formed bowel movement and had some bright red blood noted at 100cc in the bedside commode. Patient denies any pain, nausea, vomiting, or diarrhea at this time. Patient is afebrile. Vital signs are stable. Hgb rechecked this am and is 8.2 currently. Patient has been taking his aspirin and plavix. Patient was to be discharged to [facility] over the weekend but they weren't aware of his cdiff. Patient has one more day of oral Vanco for this. GI was reconsulted for this acute GI bleed. Patient is being closely monitored. Will continue to monitor vital signs and labs. Patient denies any shortness of breath, chest pain, or palpitations at this time. 05/05/2019 Patient is sitting up in the recliner in no acute distress eating a clear liquid diet and tolerating. Patient states that he had another bowel movement today with bright red blood noted and formed brown stool. GI and surgery are following. CBCs are being monitored closely this acute blood loss. At this time aspirin and Plavix are being held and will resume Plavix in 3 days provided the patient is hemodynamically stable. Patient denies any abdominal pain, na usea, or vomiting. Patient denies any chest pain, shortness of breath, or palpitations at this time. Patient's vital signs are stable and patient remains afebrile. Patient completed his oral Vanco course of antibiotics for his C. diff. We will continue to monitor closely. 05/06/2019 Patient is currently on the commode having a bowel movement. The bowel movement was brown and formed with bright red blood noted with wiping. Patient is in no acute distress. Patient denies any abdominal pain, nausea, vomiting, or diarrhea at this time. Patient denies any chest pain, shortness of breath, palpitations, dizziness, or lightheadedness at this time. Patient is hemodynamically stable. current hemoglobin is 7.6 down from 8.9 yesterday. Will continue to monitor cbc and vitals closely. Surgery was consulted and patient will be put back on clear liquid diet and NPO after midnight and will be performing a rectal exam under anesthesia tomorrow. During the colonoscopy last week, Dr. Orosco stated that there was a fold near the rectosigmoid junction that appeared to be fissure-like. Bleeding may possibly be occurring from this fold. Plavix and aspirin being held at this time. Cardiology is following as well. 05/07/2019 Patient was currently lying in bed resting but easily arousable. Patient did receive a bowel prep enema and tolerated well with no blood noted per research staff member. Patient is going down for a rectal exam under anesthesia in the OR today. Patient was nothing by mouth for the procedure. Patient's current hemoglobin is 8.0 and last night reading was 9.0. Patient denied having any bloody bowel movements last night into this morning. Patient is hemodynamically stable. Patient denies any chest pain, shortness of breath, or palpitations at this time. Patient denies any dizziness or lightheadedness. Patient denies any abdominal discomfort, nausea, vomiting, or diarrhea at this time. Patient remains afebrile. Anticoagulation is still being held at this time and will await cardiology recommendations for resuming the Plavix after today's procedure. 05/08/2019 Patient is currently sitting up in recliner in no acute distress. Patient underwent a rectal exam under anesthesia yesterday which revealed internal and external hemorrhoids with no active bleeding. Patient denies having any bleeding with bowel movements today. Patient denies having any chest pain, shortness of breath, or palpitations at this time. Patient denies any nausea or vomiting or abdominal discomfort. Patient will be resumed on Plavix per cardiology recommendations. Awaiting for authorization from [facility] for rehab. Patient is hemodynamically stable the last hemoglobin of 8.5. We'll continue to monitor closely. Patient remains afebrile and tolerating diet. 05/11/2019 This is a 64-year-old male who was admitted with acute lower GI bleed, possibly from hemorrhoidal or diverticular source and underwent a rectal exam last week under anesthesia with reports of internal and external hemorrhoids with no active bleeding patient is currently hemodynamically stable. patient hemoglobin is 8.7 and is being closely monitored. Patient was restarted on oral Plavix per cardiology as they are following as well. Currently awaiting authorization for [facility] as we were told by social work that the authorization and need to reapply. Gastroenterology is following the patient as well. Patient denies any abdominal discomfort, nausea, vomiting, diarrhea, or any blood loss at this time. Patient denies any chest pain, shortness of breath, or palpitations at this time. Patient remains afebrile. Objective - Vital Signs Vital signs: Vital Signs Temp 97.0 F L 05/11/19 13:31 Pulse 64 05/11/19 13:31 Resp 16 05/11/19 13:31 BP 166/82 05/11/19 13:31 Pulse Ox 99 05/11/19 13:31 Intake & Output 05/10/19 05/11/19 05/11/19 18:59 06:59 18:59 Output Total 1450 1075 Balance -1450 -1075 Output: Urine 1450 1075 Other: Voiding Method Urinal # Voids 3 2 2 # Bowel Movements 4 1 - Exam Gen: This is a 64-year-old male sitting up in the recliner in no acute distress. Vital signs are stable BP is 166/82, pulse is 64, respirations are 16 and non- labored, temp is 97.0F, and oxygen saturation is 99% on room air. HEENT: Head is atraumatic, normocephalic. Pupils equal, round. Sclerae is anicteric. Oral mucosa is moist NECK: Supple. No JVD. No lymphadenopathy. No thyromegaly. LUNGS: Clear to auscultation. No wheezes or rhonchi. No intercostal retractions. HEART: Regular rate and rhythm. No murmur. ABDOMEN: Soft. Bowel sounds are present. No masses. No tenderness. EXTREMITIES: No pedal edema. No calf tenderness. NEUROLOGICAL: Patient is awake, alert and oriented x3. Cranial nerves 2 through 12 are grossly intact. Right side weakness of the upper and lower extremities from history of CVA. - Labs CBC & Chem 7: 05/11/19 14:54 05/01/19 06:29 Labs: Abnormal Lab Results - Last 24 Hours (Table) 05/11/19 Range/Units 14:54 RBC 3.41 L (4.30-5.90) m/uL Hgb 8.7 L (13.0-17.5) gm/dL Hct 28.3 L (39.0-53.0) % MCHC 30.8 L (31.0-37.0) g/dL Assessment and Plan Assessment: Acute lower GI bleed: Either hemorrhoidal or diverticular. EGD and colonoscopy was done last week. Biopsies are pending. CBCs are being monitored. Current Hgb is 8.3. Patient is hemodynamically stable. GI is following. Surgery performed a rectal exam under anesthesia last week showing internal and external hemorrhoids with no active bleeding. Plavix was restarted today and we'll continue to monitor per cardiology. 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 Will continue to monitor. Seizure disorder Acute blood loss anemia Coronary artery disease with cardiac catheterization and stent to the RCA in February 2019. Cardiology is following. Plavix 75 mg daily was resumed GI prophylaxis History of Clostridium difficile on 04/28/19: Was treated with oral Vanco. Recommendations and discussion: Recommend to continue current medications and continue symptomatic treatment. Patient's hemoglobin is 8.3. He will be closely monitored. We'll continue to monitor labs and vital signs. Guarded prognosis. Further recommendations to follow. Cardiology is following as well. Possible discharge in 24-48 hours to [facility]. Authorization is pending and awaiting approval again. Social work is following. Case management is following.
[2019-05-11] MEDS: CHOLECALCIFEROL 1,000 UNIT TAB PO SCH (19:41)
[2019-05-11] MEDS: MAGNESIUM OXIDE 400 MG TAB PO SCH (19:41)
[2019-05-12] MEDS: VANCOMYCIN ORAL SOLUTION 250 MG/5 ML BOTTLE PO SCH ×4 (05:29→23:30)
[2019-05-12] MEDS: CLOPIDOGREL 75 MG TAB PO SCH (07:02)
[2019-05-12] MEDS: CARVEDILOL 3.125 MG TAB PO SCH ×2 (07:02→17:27)
[2019-05-12] MEDS: ATORVASTATIN 40 MG TAB PO SCH (07:02)
[2019-05-12] MEDS: LISINOPRIL 20 MG TAB PO SCH (07:02)
[2019-05-12] MEDS: PANTOPRAZOLE 40 MG TABLET PO SCH (07:02)
[2019-05-12] MEDS: DOCUSATE 100 MG CAP PO SCH ×2 (07:02→23:27)
[2019-05-12] MEDS: levETIRAcetam 500 MG TAB PO SCH ×2 (07:03→17:27)
[2019-05-12] MEDS: HYDROCORTISONE SUPPOSITORY 25 MG SUPP RECTAL SCH ×2 (07:03→23:27)
[2019-05-12 09:44] LABS: HCT 26.1 % (39.0-53.0); Hypochromasia Marked; MCHC 30.6 g/dL (31.0-37.0); MCV 81.6 fL (80.0-100.0); Mean Platelet Volume 7.4; Platelet Count 264 k/uL (150-450); Poikilocytosis Slight; RDW 15.5 % (11.5-15.5); WBC 9.4 k/uL (3.8-10.6)
[2019-05-12] MEDS: CHERRY FLAVOR 60 ML BOTTLE PO PRN ×3 (11:21→23:29)
[2019-05-12] MEDS: LACTATED RINGERS 1,000 ML IV SCH (14:09)
--- NOTE | 2019-05-12 16:14 | P.PN ---
Subjective Progress Note Date: 05/12/19 Principal diagnosis: This is a 64-year-old male who was admitted with GI bleed that is being closely monitored. Patient states that he was having bright red blood with bowel moveme nts and last episode was yesterday. Patient states that he is currently on aspirin and Plavix for CVA with right side upper and lower involvement that is still currently active. Patient denies any shortness of breath, chest pain, palpitations at this time. Patient is currently still nothing by mouth. Patient denies any abdominal pain just having some mild cramping at times. Patient denies any nausea or vomiting at this time patient is afebrile. Awaiting gastric consult at this time. 04/28/2019 This is a 64-year-old male who was admitted with acute GI bleed that is being closely monitored. Patient did have a lot of loose bowel movements last night and some this morning that did not have any blood in them. Around 11 AM today the patient experienced 2 loose bowel movements with large amounts of bright red blood noted. Patient's stool culture also tested positive for C. diff and is currently being monitored with GI. Patient is starting oral vanco today. Currently we are still holding his aspirin and Plavix as he is active bleeding rectally again. Patient is currently not a candidate for a scope with GI due to the C. diff until the infection is cleared. Patient denies having any nausea, or vomiting and denies any stomach pain at this time. Patient is afebrile. Repeat CBC done this afternoon shows a hemoglobin of 9.2. Per GI they will be ordering a tagged RBC scan as he is still actively bleeding. Patient is currently on a clear liquid diet and tolerating well. 04/29/19 Overnight patient was moved from his previous floor to the ICU for closer monitoring due to an increase in the amount of blood in the stool. Patient is currently at the side of the bed getting up with assistance due to his history of CVA with right side deficits to the bedside commode. This will be the second loose bowel movement with patricia red blood noted in a small amount. Hemoglobin is currently stable at 8.8. Patient denies any shortness of breath, chest pain, palpitations, nausea, or vomiting at this time. Patient denies any abdominal pain and is afebrile. Patient is NPO except ice chips at this time and is scheduled to go for an EGD and colonoscopy in the morning per GI. Patient was positive for cdiff and is being treated with oral vancomycin. Patient will be monitored closely of vitals and labs. 04/30/2019 Patient is sitting up in bed in no acute distress. Patient did have a clear liquid diet this morning and tolerated well. Patient did complete bowel prep with GoLYTELY overnight and is scheduled for an EGD and colonoscopy this morning with GI. Patient denies any abdominal pain, nausea, vomiting. Patient states that his bowel movements are still liquid and almost clear with no new bright red blood noted at this time. Patient remains afebrile. Patient denies any chest pain, shortness of breath, or palpitations at this time. Anticoagulation is still being held until after the procedures this afternoon. Will continue to monitor closely. Vital signs are stable. Current hemoglobin is 8.5. Patient is hemodynamically stable. Patient is going to have a midline placed today due to poor IV access. Patient refusing all IV access in the right side as he has a history of CVA with deficits on the right. 05/01/2019 Patient is sitting up in recliner in no acute distress. Patient states he is having some blood noted in his bowel movements that are dark with clots noted. Hemoglobin is stable at this time at 9.3. Patient is hemodynamically stable. Patient denies any abdominal pain, nausea, or vomiting at this time. Patient is afebrile. Vital signs are stable. Patient currently denies any chest pain, shortness of breath, or palpitations at this time. Anticoagulation of aspirin and Plavix will be resumed this evening. We will continue to monitor closely. Patient is awaiting for rehab placement at [facility] and is scheduled to go tomorrow morning. 05/04/19 Patient is sitting up in recliner watching TV eating a banana in no acute distress. Patient just finished having a large formed bowel movement and had some bright red blood noted at 100cc in the bedside commode. Patient denies any pain, nausea, vomiting, or diarrhea at this time. Patient is afebrile. Vital signs are stable. Hgb rechecked this am and is 8.2 currently. Patient has been taking his aspirin and plavix. Patient was to be discharged to [facility] over the weekend but they weren't aware of his cdiff. Patient has one more day of oral Vanco for this. GI was reconsulted for this acute GI bleed. Patient is being closely monitored. Will continue to monitor vital signs and labs. Patient denies any shortness of breath, chest pain, or palpitations at this time. 05/05/2019 Patient is sitting up in the recliner in no acute distress eating a clear liquid diet and tolerating. Patient states that he had another bowel movement today with bright red blood noted and formed brown stool. GI and surgery are following. CBCs are being monitored closely this acute blood loss. At this time aspirin and Plavix are being held and will resume Plavix in 3 days provided the patient is hemodynamically stable. Patient denies any abdominal pain, na usea, or vomiting. Patient denies any chest pain, shortness of breath, or palpitations at this time. Patient's vital signs are stable and patient remains afebrile. Patient completed his oral Vanco course of antibiotics for his C. diff. We will continue to monitor closely. 05/06/2019 Patient is currently on the commode having a bowel movement. The bowel movement was brown and formed with bright red blood noted with wiping. Patient is in no acute distress. Patient denies any abdominal pain, nausea, vomiting, or diarrhea at this time. Patient denies any chest pain, shortness of breath, palpitations, dizziness, or lightheadedness at this time. Patient is hemodynamically stable. current hemoglobin is 7.6 down from 8.9 yesterday. Will continue to monitor cbc and vitals closely. Surgery was consulted and patient will be put back on clear liquid diet and NPO after midnight and will be performing a rectal exam under anesthesia tomorrow. During the colonoscopy last week, Dr. Orosco stated that there was a fold near the rectosigmoid junction that appeared to be fissure-like. Bleeding may possibly be occurring from this fold. Plavix and aspirin being held at this time. Cardiology is following as well. 05/07/2019 Patient was currently lying in bed resting but easily arousable. Patient did receive a bowel prep enema and tolerated well with no blood noted per technical staff assistant. Patient is going down for a rectal exam under anesthesia in the OR today. Patient was nothing by mouth for the procedure. Patient's current hemoglobin is 8.0 and last night reading was 9.0. Patient denied having any bloody bowel movements last night into this morning. Patient is hemodynamically stable. Patient denies any chest pain, shortness of breath, or palpitations at this time. Patient denies any dizziness or lightheadedness. Patient denies any abdominal discomfort, nausea, vomiting, or diarrhea at this time. Patient remains afebrile. Anticoagulation is still being held at this time and will await cardiology recommendations for resuming the Plavix after today's procedure. 05/08/2019 Patient is currently sitting up in recliner in no acute distress. Patient underwent a rectal exam under anesthesia yesterday which revealed internal and external hemorrhoids with no active bleeding. Patient denies having any bleeding with bowel movements today. Patient denies having any chest pain, shortness of breath, or palpitations at this time. Patient denies any nausea or vomiting or abdominal discomfort. Patient will be resumed on Plavix per cardiology recommendations. Awaiting for authorization from [facility] for rehab. Patient is hemodynamically stable the last hemoglobin of 8.5. We'll continue to monitor closely. Patient remains afebrile and tolerating diet. 05/11/2019 This is a 64-year-old male who was admitted with acute lower GI bleed, possibly from hemorrhoidal or diverticular source and underwent a rectal exam last week under anesthesia with reports of internal and external hemorrhoids with no active bleeding patient is currently hemodynamically stable. patient hemoglobin is 8.7 and is being closely monitored. Patient was restarted on oral Plavix per cardiology as they are following as well. Currently awaiting authorization for [facility] as we were told by social work that the authorization and need to reapply. Gastroenterology is following the patient as well. Patient denies any abdominal discomfort, nausea, vomiting, diarrhea, or any blood loss at this time. Patient denies any chest pain, shortness of breath, or palpitations at this time. Patient remains afebrile. 05/12/2019 Patient is sitting up in the recliner next to the bed and is stating that he is having some mild mid epigastric abdominal discomfort. Patient did tolerate his diet this morning. Patient denies any nausea or vomiting. Patient did have a bowel movement today and per the nursing staff there is some mucus with a small amount of blood noted. Patient is hemodynamically stable at this time her hemoglobin is 8.0. We'll continue to monitor labs closely. Patient is still awaiting authorization for [facility] as this has been reinitiated as of yesterday. Was told by social work and case management that the authorization has . Patient is aware. Patient is denying any chest pain, shortness of breath, or palpitations at this time. Patient is still currently on Plavix for anticoagulation. Prognosis is guarded. Objective - Vital Signs Vital signs: Vital Signs Temp 97.8 F 05/12/19 12:30 Pulse 61 05/12/19 12:30 Resp 18 05/12/19 12:30 BP 131/62 05/12/19 12:30 Pulse Ox 98 05/12/19 12:30 Intake & Output 05/11/19 05/12/19 05/12/19 18:59 06:59 18:59 Intake Total 300 Balance 300 Intake: Oral 300 Other: Voiding Method Urinal # Voids 2 2 2 # Bowel Movements 1 2 - Exam Gen: This is a 64-year-old male sitting up in the recliner in no acute distress. Vital signs are stable BP is 121/70, pulse is 65, respirations are 20 and non-labored, temp is 98.6F, and oxygen saturation is 95% on room air. HEENT: Head is atraumatic, normocephalic. Pupils equal, round. Sclerae is anicteric. Oral mucosa is moist NECK: Supple. No JVD. No lymphadenopathy. No thyromegaly. LUNGS: Clear to auscultation. No wheezes or rhonchi. No intercostal retr actions. HEART: Regular rate and rhythm. No murmur. ABDOMEN: Soft. Bowel sounds are present. No masses. Mild mid epigastric tenderness upon palpation. EXTREMITIES: No pedal edema. No calf tenderness. NEUROLOGICAL: Patient is awake, alert and oriented x3. Cranial nerves 2 through 12 are grossly intact. Right side weakness of the upper and lower extremities from history of CVA. - Labs CBC & Chem 7: 05/12/19 09:25 05/01/19 06:29 Labs: Abnormal Lab Results - Last 24 Hours (Table) 05/12/19 Range/Units 09:25 RBC 3.20 L (4.30-5.90) m/uL Hgb 8.0 L (13.0-17.5) gm/dL Hct 26.1 L (39.0-53.0) % MCHC 30.6 L (31.0-37.0) g/dL Assessment and Plan Assessment: Acute lower GI bleed: Either hemorrhoidal or diverticular. EGD and colonoscopy was done last week. Biopsies are pending. CBCs are being monitored. Current Hgb is 8.0. Patient is hemodynamically stable. GI is following. Surgery performed a rectal exam under anesthesia last week showing internal and external hemorrhoids with no active bleeding. Plavix was resumed and we'll continue to monitor per cardiology. Patient had a bowel movement today with a small amount of blood noted. We'll continue to monitor CBC History of CVA with residual weakness in the right upper and lower extremities Hyperlipidemia Hypertension: Lisinopril has been resumed. Will continue to monitor. Seizure disorder Acute blood loss anemia Coronary artery disease with cardiac catheterization and stent to the RCA in February 2019. Cardiology is following. Plavix 75 mg daily was resumed GI prophylaxis History of Clostridium difficile on 04/28/19: Was treated with oral Vanco. Recommendations and discussion: Recommend to continue current medications and continue symptomatic treatment. Patient's hemoglobin is 8.0. He will be closely monitored. We'll continue to monitor labs and vital signs. Guarded prognosis. Further recommendations to follow. Cardiology is following as well. Possible discharge in 24-48 hours to [facility]. Authorization is pending and awaiting approval again. Soc ial work is following. Case management is following. Will follow up with [facility] in the am.
[2019-05-12] MEDS: CHOLECALCIFEROL 1,000 UNIT TAB PO SCH (23:26)
[2019-05-12] MEDS: MAGNESIUM OXIDE 400 MG TAB PO SCH (23:27)
[2019-05-13] MEDS: levETIRAcetam 500 MG TAB PO SCH ×2 (06:29→17:28)
[2019-05-13] MEDS: VANCOMYCIN ORAL SOLUTION 250 MG/5 ML BOTTLE PO SCH ×2 (06:30→11:42)
[2019-05-13] MEDS: CHERRY FLAVOR 60 ML BOTTLE PO PRN (06:30)
[2019-05-13] MEDS: CLOPIDOGREL 75 MG TAB PO SCH (08:04)
[2019-05-13] MEDS: LISINOPRIL 20 MG TAB PO SCH (08:04)
[2019-05-13] MEDS: ATORVASTATIN 40 MG TAB PO SCH (08:04)
[2019-05-13] MEDS: DOCUSATE 100 MG CAP PO SCH ×2 (08:04→20:19)
[2019-05-13] MEDS: PANTOPRAZOLE 40 MG TABLET PO SCH (08:04)
[2019-05-13] MEDS: CARVEDILOL 3.125 MG TAB PO SCH ×2 (08:04→17:28)
[2019-05-13] MEDS: HYDROCORTISONE SUPPOSITORY 25 MG SUPP RECTAL SCH ×2 (08:04→20:22)
[2019-05-13 09:08] LABS: Basophils # (A) 0.1 k/uL (0-0.2); Basophils % (A) 1 %; Eosinophils # (A) 0.3 k/uL (0-0.7); Eosinophils % (A) 4 %; HCT 27.3 % (39.0-53.0); HGB 8.3 gm/dL (13.0-17.5); Hypochromasia Marked; Lymphocytes # (A) 1.6 k/uL (1.0-4.8); Lymphocytes % (A) 19 %; MCH 24.9 pg (25.0-35.0); MCHC 30.5 g/dL (31.0-37.0); MCV 81.8 fL (80.0-100.0); Mean Platelet Volume 7.4; Monocytes # (A) 0.3 k/uL (0-1.0); Monocytes % (A) 4 %; Neutrophils # (A) 6.1 k/uL (1.3-7.7); Neutrophils % (A) 71 %; Platelet Count 286 k/uL (150-450); Poikilocytosis Slight; RBC 3.33 m/uL (4.30-5.90); RDW 15.4 % (11.5-15.5); WBC 8.5 k/uL (3.8-10.6)
[2019-05-13] MEDS: LACTATED RINGERS 1,000 ML IV SCH (13:50)
--- NOTE | 2019-05-13 18:09 | P.PN ---
Subjective Progress Note Date: 05/13/19 Principal diagnosis: This is a 64-year-old male who was admitted with GI bleed that is being closely monitored. Patient states that he was having bright red blood with bowel moveme nts and last episode was yesterday. Patient states that he is currently on aspirin and Plavix for CVA with right side upper and lower involvement that is still currently active. Patient denies any shortness of breath, chest pain, palpitations at this time. Patient is currently still nothing by mouth. Patient denies any abdominal pain just having some mild cramping at times. Patient denies any nausea or vomiting at this time patient is afebrile. Awaiting gastric consult at this time. 04/28/2019 This is a 64-year-old male who was admitted with acute GI bleed that is being closely monitored. Patient did have a lot of loose bowel movements last night and some this morning that did not have any blood in them. Around 11 AM today the patient experienced 2 loose bowel movements with large amounts of bright red blood noted. Patient's stool culture also tested positive for C. diff and is currently being monitored with GI. Patient is starting oral vanco today. Currently we are still holding his aspirin and Plavix as he is active bleeding rectally again. Patient is currently not a candidate for a scope with GI due to the C. diff until the infection is cleared. Patient denies having any nausea, or vomiting and denies any stomach pain at this time. Patient is afebrile. Repeat CBC done this afternoon shows a hemoglobin of 9.2. Per GI they will be ordering a tagged RBC scan as he is still actively bleeding. Patient is currently on a clear liquid diet and tolerating well. 04/29/19 Overnight patient was moved from his previous floor to the ICU for closer monitoring due to an increase in the amount of blood in the stool. Patient is currently at the side of the bed getting up with assistance due to his history of CVA with right side deficits to the bedside commode. This will be the second loose bowel movement with patricia red blood noted in a small amount. Hemoglobin is currently stable at 8.8. Patient denies any shortness of breath, chest pain, palpitations, nausea, or vomiting at this time. Patient denies any abdominal pain and is afebrile. Patient is NPO except ice chips at this time and is scheduled to go for an EGD and colonoscopy in the morning per GI. Patient was positive for cdiff and is being treated with oral vancomycin. Patient will be monitored closely of vitals and labs. 04/30/2019 Patient is sitting up in bed in no acute distress. Patient did have a clear liquid diet this morning and tolerated well. Patient did complete bowel prep with GoLYTELY overnight and is scheduled for an EGD and colonoscopy this morning with GI. Patient denies any abdominal pain, nausea, vomiting. Patient states that his bowel movements are still liquid and almost clear with no new bright red blood noted at this time. Patient remains afebrile. Patient denies any chest pain, shortness of breath, or palpitations at this time. Anticoagulation is still being held until after the procedures this afternoon. Will continue to monitor closely. Vital signs are stable. Current hemoglobin is 8.5. Patient is hemodynamically stable. Patient is going to have a midline placed today due to poor IV access. Patient refusing all IV access in the right side as he has a history of CVA with deficits on the right. 05/01/2019 Patient is sitting up in recliner in no acute distress. Patient states he is having some blood noted in his bowel movements that are dark with clots noted. Hemoglobin is stable at this time at 9.3. Patient is hemodynamically stable. Patient denies any abdominal pain, nausea, or vomiting at this time. Patient is afebrile. Vital signs are stable. Patient currently denies any chest pain, shortness of breath, or palpitations at this time. Anticoagulation of aspirin and Plavix will be resumed this evening. We will continue to monitor closely. Patient is awaiting for rehab placement at [facility] and is scheduled to go tomorrow morning. 05/04/19 Patient is sitting up in recliner watching TV eating a banana in no acute distress. Patient just finished having a large formed bowel movement and had some bright red blood noted at 100cc in the bedside commode. Patient denies any pain, nausea, vomiting, or diarrhea at this time. Patient is afebrile. Vital signs are stable. Hgb rechecked this am and is 8.2 currently. Patient has been taking his aspirin and plavix. Patient was to be discharged to [facility] over the weekend but they weren't aware of his cdiff. Patient has one more day of oral Vanco for this. GI was reconsulted for this acute GI bleed. Patient is being closely monitored. Will continue to monitor vital signs and labs. Patient denies any shortness of breath, chest pain, or palpitations at this time. 05/05/2019 Patient is sitting up in the recliner in no acute distress eating a clear liquid diet and tolerating. Patient states that he had another bowel movement today with bright red blood noted and formed brown stool. GI and surgery are following. CBCs are being monitored closely this acute blood loss. At this time aspirin and Plavix are being held and will resume Plavix in 3 days provided the patient is hemodynamically stable. Patient denies any abdominal pain, na usea, or vomiting. Patient denies any chest pain, shortness of breath, or palpitations at this time. Patient's vital signs are stable and patient remains afebrile. Patient completed his oral Vanco course of antibiotics for his C. diff. We will continue to monitor closely. 05/06/2019 Patient is currently on the commode having a bowel movement. The bowel movement was brown and formed with bright red blood noted with wiping. Patient is in no acute distress. Patient denies any abdominal pain, nausea, vomiting, or diarrhea at this time. Patient denies any chest pain, shortness of breath, palpitations, dizziness, or lightheadedness at this time. Patient is hemodynamically stable. current hemoglobin is 7.6 down from 8.9 yesterday. Will continue to monitor cbc and vitals closely. Surgery was consulted and patient will be put back on clear liquid diet and NPO after midnight and will be performing a rectal exam under anesthesia tomorrow. During the colonoscopy last week, Dr. Orosco stated that there was a fold near the rectosigmoid junction that appeared to be fissure-like. Bleeding may possibly be occurring from this fold. Plavix and aspirin being held at this time. Cardiology is following as well. 05/07/2019 Patient was currently lying in bed resting but easily arousable. Patient did receive a bowel prep enema and tolerated well with no blood noted per staffing rn. Patient is going down for a rectal exam under anesthesia in the OR today. Patient was nothing by mouth for the procedure. Patient's current hemoglobin is 8.0 and last night reading was 9.0. Patient denied having any bloody bowel movements last night into this morning. Patient is hemodynamically stable. Patient denies any chest pain, shortness of breath, or palpitations at this time. Patient denies any dizziness or lightheadedness. Patient denies any abdominal discomfort, nausea, vomiting, or diarrhea at this time. Patient remains afebrile. Anticoagulation is still being held at this time and will await cardiology recommendations for resuming the Plavix after today's procedure. 05/08/2019 Patient is currently sitting up in recliner in no acute distress. Patient underwent a rectal exam under anesthesia yesterday which revealed internal and external hemorrhoids with no active bleeding. Patient denies having any bleeding with bowel movements today. Patient denies having any chest pain, shortness of breath, or palpitations at this time. Patient denies any nausea or vomiting or abdominal discomfort. Patient will be resumed on Plavix per cardiology recommendations. Awaiting for authorization from [facility] for rehab. Patient is hemodynamically stable the last hemoglobin of 8.5. We'll continue to monitor closely. Patient remains afebrile and tolerating diet. 05/11/2019 This is a 64-year-old male who was admitted with acute lower GI bleed, possibly from hemorrhoidal or diverticular source and underwent a rectal exam last week under anesthesia with reports of internal and external hemorrhoids with no active bleeding patient is currently hemodynamically stable. patient hemoglobin is 8.7 and is being closely monitored. Patient was restarted on oral Plavix per cardiology as they are following as well. Currently awaiting authorization for [facility] as we were told by social work that the authorization and need to reapply. Gastroenterology is following the patient as well. Patient denies any abdominal discomfort, nausea, vomiting, diarrhea, or any blood loss at this time. Patient denies any chest pain, shortness of breath, or palpitations at this time. Patient remains afebrile. 05/12/2019 Patient is sitting up in the recliner next to the bed and is stating that he is having some mild mid epigastric abdominal discomfort. Patient did tolerate his diet this morning. Patient denies any nausea or vomiting. Patient did have a bowel movement today and per the nursing staff there is some mucus with a small amount of blood noted. Patient is hemodynamically stable at this time her hemoglobin is 8.0. We'll continue to monitor labs closely. Patient is still awaiting authorization for [facility] as this has been reinitiated as of yesterday. Was told by social work and case management that the authorization has . Patient is aware. Patient is denying any chest pain, shortness of breath, or palpitations at this time. Patient is still currently on Plavix for anticoagulation. Prognosis is guarded. 05/13/19 Patient is sitting up in the recliner watching TV in no acute distress. Patient states he feels much better than yesterday with his abdominal discomfort from yesterday. Patient denies any nausea, vomiting, or diarrhea. Patient had a bowel movement this morning with no blood noted. Patient is refusing suppositories as he feels is what was causing discomfort. Patient is having daily bowel movements with no issues. Patient denies any chest pain, palpitations, or shortness of breath at this time. Patient is hemodynamically stable as his hemoglobin is 8.3. Will continue to monitor. Patient has completed his course of oral vanco for c- diff. Patient is awaiting authorization for [facility]. Prognosis is guarded. Social work is following closely. Objective - Vital Signs Vital signs: Vital Signs Temp 97.3 F L 05/13/19 14:20 Pulse 61 05/13/19 14:20 Resp 18 05/13/19 14:20 BP 125/77 05/13/19 14:20 Pulse Ox 98 05/13/19 14:20 Intake & Output 05/12/19 05/13/19 05/13/19 18:59 06:59 18:59 Intake Total 300 Balance 300 Weight 94.2 kg Intake: Oral 300 Other: Voiding Method Urinal # Voids 1 2 3 # Bowel Movements 1 3 - Exam Gen: This is a 64-year-old male sitting up in the recliner in no acute distress. Vital signs are stable BP is 106/55, pulse is 59, respirations are 20 and non- labored, temp is 98.3F, and oxygen saturation is 97% on room air. HEENT: Head is atraumatic, normocephalic. Pupils equal, round. Sclerae is anicteric. Oral mucosa is moist NECK: Supple. No JVD. No lymphadenopathy. No thyromegaly. LUNGS: Clear to auscultation. No wheezes or rhonchi. No intercostal retractions. HEART: Regular rate and rhythm. No murmur. ABDOMEN: Soft. Bowel sounds are present. No masses. No tenderness. EXTREMITIES: No pedal edema. No calf tenderness. NEUROLOGICAL: Patient is awake, alert and oriented x3. Cranial nerves 2 through 12 are grossly intact. Right side weakness of the upper and lower extremities from history of CVA. - Labs CBC & Chem 7: 05/13/19 08:47 05/01/19 06:29 Labs: Abnormal Lab Results - Last 24 Hours (Table) 05/13/19 Range/Units 08:47 RBC 3.33 L (4.30-5.90) m/uL Hgb 8.3 L (13.0-17.5) gm/dL Hct 27.3 L (39.0-53.0) % MCH 24.9 L (25.0-35.0) pg MCHC 30.5 L (31.0-37.0) g/dL Assessment and Plan Assessment: Acute lower GI bleed: Either hemorrhoidal or diverticular. EGD and colonoscopy was done last week. Biopsies are pending. CBCs are being monitored. Current Hgb is 8.3. Patient is hemodynamically stable. GI is following. Surgery performed a rectal exam under anesthesia last week showing internal and external hemorrhoids with no active bleeding. Plavix was resumed and we'll continue to monitor per cardiology. Patient had a bowel movement today with no blood noted. We'll continue to monitor CBC History of CVA with residual weakness in the right upper and lower extremities Hyperlipidemia Hypertension: Lisinopril has been resumed. Will continue to monitor. Seizure disorder Acute blood loss anemia Coronary artery disease with cardiac catheterization and stent to the RCA in February 2019. Cardiology is following. Plavix 75 mg daily was resumed GI prophylaxis History of Clostridium difficile on 04/28/19: Was treated with oral Vanco. Oral antibiotics are complete. Recommendations and discussion: Recommend to continue current medications and continue symptomatic treatment. Patient's hemoglobin is 8.3. He will be closely monitored. We'll continue to monitor labs and vital signs. Guarded prognosis. Further recommendations to follow. Cardiology is following as well. Possible discharge in 24-48 hours to [facility]. Authorization is pending and awaiting approval again. Social work is following. Case management is following. Will follow up with [facility] in the am.
[2019-05-13] MEDS: CHOLECALCIFEROL 1,000 UNIT TAB PO SCH (20:20)
[2019-05-13] MEDS: MAGNESIUM OXIDE 400 MG TAB PO SCH (20:20)
[2019-05-14] MEDS: levETIRAcetam 500 MG TAB PO SCH (06:17)
[2019-05-14] MEDS: CLOPIDOGREL 75 MG TAB PO SCH (07:44)
[2019-05-14] MEDS: PANTOPRAZOLE 40 MG TABLET PO SCH (07:44)
[2019-05-14] MEDS: ATORVASTATIN 40 MG TAB PO SCH (07:44)
[2019-05-14] MEDS: CARVEDILOL 3.125 MG TAB PO SCH (07:44)
[2019-05-14] MEDS: LISINOPRIL 20 MG TAB PO SCH (07:44)
[2019-05-14] MEDS: HYDROCORTISONE SUPPOSITORY 25 MG SUPP RECTAL SCH (07:45)
[2019-05-14] MEDS: DOCUSATE 100 MG CAP PO SCH (07:45)
[2019-05-14 09:05] LABS: HCT 28.8 % (39.0-53.0); HGB 8.9 gm/dL (13.0-17.5); Hypochromasia Marked; MCHC 30.7 g/dL (31.0-37.0); MCV 84.7 fL (80.0-100.0); Mean Platelet Volume 7.7; Platelet Count 316 k/uL (150-450); Poikilocytosis Moderate; RDW 14.8 % (11.5-15.5); WBC 9.4 k/uL (3.8-10.6)
[2019-05-14] MEDS: LACTATED RINGERS 1,000 ML IV SCH (13:20)
[2019-05-14 15:52] VITALS: BP 142/67; PULSE 58; RESP 18; TEMP 97.8
--- NOTE | 2019-05-14 16:07 | P.DS ---
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 EGD and colonoscopy shows hemorrhoids externally and internally. History of CVA with residual weakness in the right upper and lower extremities Hyperlipidemia Hypertension Seizure disorder Acute blood loss anemia Coronary artery disease with cardiac catheterization and stent to the RCA in February 2019 Clostridium difficile Discharge disposition This patient is being discharged in a stable condition with guarded prognosis to [facility]. History of present illness This is a 64-year-old male who was admitted for lower GI bleed and acute blood loss anemia and was being monitored closely. Over the hospital course patient received 7 units of packed red blood cells. Patient underwent EGD and colonoscopy and a rectal exam under anesthesia showing internal and external hemorrhoids. Patient was discontinued on is aspirin but Plavix was resumed and continued per cardiology. Patient has not had a active bowel movement with blood noted in a few days. Patient is having daily bowel movements with no issues. Under the hospital course patient was positive for C. diff as well and treated with oral vancomycin. Patient has completed his antibiotic course. Breezy steel denies any nausea vomiting or diarrhea at this time. Patient denies any chest pain, shortness of breath, or palpitations at this time. Patient has been waiting for authorization to go to [facility] an authorization has been obtained. Patient is currently stable with much improvement. On exam vital signs are stable. Blood pressure is 142/67 pulse is 58, respirations are 18, temp is 97.8F, oxygen saturation is 97% on room air. Cardio S1 and S2 are normal. Respiratory system is clear to auscultation. Abdomen is soft and nontender. Nervous system shows no new focal deficits. Patient is history of CVA with residual right-sided upper and lower extremity weakness. Please refer to medication reconciliation sheet for list of medications. Patient Condition at Discharge: Fair Plan - Discharge Summary Discharge Rx Participant: No New Discharge Prescriptions: Continue Potassium Chloride ER [K-Dur 20] 20 meq PO DAILY levETIRAcetam [Keppra] 500 mg PO BID@0700,1800 Lisinopril 40 mg PO DAILY Clopidogrel [Plavix] 75 mg PO HS Cholecalciferol [Vitamin D3 (25 Mcg = 1000 Iu)] 2,000 unit PO HS@2100 Bisacodyl 10 mg RECTAL DAILY PRN PRN Reason: Constipation Carvedilol [Coreg] 3.125 mg PO BID Acetaminophen Tab [Tylenol] 650 mg PO Q4H PRN PRN Reason: Pain Ascorbic Acid [Vitamin C] 500 mg PO HS@2100 Magnesium Oxide [Mag-Ox] 400 mg PO HS Geritussin Dm 10 ml PO Q6H PRN PRN Reason: Cough Major-Prep Henrroid Oint 1 applic TOPICAL DAILY PRN PRN Reason: Hemorrhoids Atorvastatin [Lipitor] 40 mg PO DAILY Discontinued Aspirin [Children's Aspirin] 81 mg PO HS@2100 Discharge Medication List Acetaminophen Tab [Tylenol] 650 mg PO Q4H PRN 01/06/19 [History] Ascorbic Acid [Vitamin C] 500 mg PO HS@2100 01/06/19 [History] Bisacodyl 10 mg RECTAL DAILY PRN 01/06/19 [History] Carvedilol [Coreg] 3.125 mg PO BID 01/06/19 [History] Cholecalciferol [Vitamin D3 (25 Mcg = 1000 Iu)] 2,000 unit PO HS@2100 01/06/19 [History] Clopidogrel [Plavix] 75 mg PO HS 01/06/19 [History] Lisinopril 40 mg PO DAILY 01/06/19 [History] Potassium Chloride ER [K-Dur 20] 20 meq PO DAILY 01/06/19 [History] levETIRAcetam [Keppra] 500 mg PO BID@0700,1800 01/06/19 [History] Magnesium Oxide [Mag-Ox] 400 mg PO HS 02/18/19 [History] Atorvastatin [Lipitor] 40 mg PO DAILY 04/26/19 [History] Geritussin Dm 10 ml PO Q6H PRN 04/26/19 [History] Major-Prep Henrroid Oint 1 applic TOPICAL DAILY PRN 04/26/19 [History] Follow up Appointment(s)/Referral(s): Herb Tomlinson MD [STAFF PHYSICIAN] - 1 Week Devora Varma MD [Primary Care Provider] - 1-2 days Sanjeev Orosco MD [STAFF PHYSICIAN] - 06/01/19 1:30 pm Ambulatory/Diagnostic Orders: Complete Blood Count w/diff [LAB.AMB] Time Frame: 3 Days, Location: None Selected Activity/Diet/Wound Care/Special Instructions: Patient to be transferred to [facility] Activity as tolerated Continue current diet
== END 2019-05-14 17:03 | DRG 372 ==
LOC: EC 13:49 → 3SCARD 15:19 → 2SICU 04-28 16:11 → 4MS4W 04-30 13:47 → 3NMEDONC 05-14 14:12
PROVIDERS: ADMIT Internal Medicine; ATTEND Internal Medicine
PROC: 30233N1 Transfusion of Nonautologous Red Blood Cells into Peripheral Vein, Percutaneous Approach (ICD-10-PCS; 2019-04-27)
PROC: 0DBM8ZX Excision of Descending Colon, Via Natural or Artificial Opening Endoscopic, Diagnostic (ICD-10-PCS; 2019-04-30)
PROC: 0DBN8ZX Excision of Sigmoid Colon, Via Natural or Artificial Opening Endoscopic, Diagnostic (ICD-10-PCS; 2019-04-30)
PROC: 05HA33Z Insertion of Infusion Device into Left Brachial Vein, Percutaneous Approach (ICD-10-PCS; 2019-04-30)
PROC: 0WJP7ZZ Inspection of Gastrointestinal Tract, Via Natural or Artificial Opening Approach (ICD-10-PCS; principal; 2019-04-30 11:00)
PROC: 0DB98ZX Excision of Duodenum, Via Natural or Artificial Opening Endoscopic, Diagnostic (ICD-10-PCS; 2019-04-30 11:00)
PROC: 0DB78ZX Excision of Stomach, Pylorus, Via Natural or Artificial Opening Endoscopic, Diagnostic (ICD-10-PCS; 2019-04-30 14:40)
PROC: 05HC33Z Insertion of Infusion Device into Left Basilic Vein, Percutaneous Approach (ICD-10-PCS; 2019-05-05)
DX: A04.72 Enterocolitis due to Clostridium difficile, not specified as recurrent (principal); D62 Acute posthemorrhagic anemia; I69.351 Hemiplegia and hemiparesis following cerebral infarction affecting right dominant side; D12.4 Benign neoplasm of descending colon; D12.5 Benign neoplasm of sigmoid colon; E11.9 Type 2 diabetes mellitus without complications; E78.5 Hyperlipidemia, unspecified; G40.909 Epilepsy, unspecified, not intractable, without status epilepticus; I10 Essential (primary) hypertension; I25.10 Atherosclerotic heart disease of native coronary artery without angina pectoris; I45.10 Unspecified right bundle-branch block; K29.70 Gastritis, unspecified, without bleeding; K57.30 Diverticulosis of large intestine without perforation or abscess without bleeding; K64.4 Residual hemorrhoidal skin tags; K64.8 Other hemorrhoids; Z79.02 Long term (current) use of antithrombotics/antiplatelets; Z79.82 Long term (current) use of aspirin; Z79.899 Other long term (current) drug therapy; Z80.9 Family history of malignant neoplasm, unspecified; Z87.891 Personal history of nicotine dependence; Z90.79 Acquired absence of other genital organ(s); Z95.5 Presence of coronary angioplasty implant and graft
CPT/HCPCS: 36410; 36415; 43239; 45380; 45385; 74176; 76937; 78278; 80048; 80053; 83735; 85025; 85027; 85610; 85730; 86850; 86900; 86901; 86920; 87324; 88305; 93005; 96360; 96361; 99284